=== PATIENT | male | born 1985 | race Two or more races ===

== ENCOUNTER 2021-02-17 17:02 | Emergency (ER) | payer OTHER, SELFPAY ==
[2021-02-17 17:09] VITALS: BP 130/86; PULSE 120; O2SAT 99
[2021-02-17 17:16] VITALS: BP 121/76; PULSE 120; RESP 20; TEMP 36.1; O2SAT 95; BMI 21.6
--- NOTE | 2021-02-17 17:44 | ED_ITS ---
HPI - Overdose General Chief Complaint: Overdose Stated Complaint: HEROIN USE @ [facility],NO NARCAN GIVEN Time Seen by Provider: 02/17/21 17:10 Source: patient and EMS Mode of arrival: EMS Limitations: no limitations History of Present Illness HPI Narrative: Patient comes emergency room by EMS. Patient was found at our local [facility] nodding off. Patient admits to using heroin and cocaine. Patient denies suicidal or homicidal ideation. Patient states he feels fine and would like to be discharged. No Narcan was given by EMS. Patient denies any other symptoms. Related Data Allergies Allergy/AdvReac Type Severity Reaction Status Date / Time No Known Allergies Allergy Verified 02/17/21 17:19 Review of Systems Review of Systems: Constitutional : No Weight loss, No Fever, No Chills, No Night Sweats, No Fatigue, No Malaise ENT/Mouth : No Hearing loss, No Ear Pain, No Nasal Congestion, No Sinus Pain, No Hoarseness, No sore throat, No Rhinorrhea, No Swallowing Difficulty Eyes: No Eye Pain, No Swelling, No Redness, No Foreign Body, No Discharge, No V ision Changes Cardiovascular : No Chest Pain, No SOB, No Dyspnea on Exertion, No Orthopnea, No Edema, No Palpitations Respiratory : No Cough, No Sputum, No Wheezing, No Smoke Exposure, No Dyspnea Gastrointestinal : No Nausea, No Vomiting, No Diarrhea, No Constipation, No abdominal Pain, No Hematochezia, No Melena Genitourinary : no irregular bleeding, No Dysuria, No Urinary Frequency, No Hematuria, No Urinary Incontinence, No Urgency, No Flank Pain, No Urinary Flow Changes, No Hesitancy Musculoskeletal : No joint pain, No Myalgias, No Joint Swelling Skin : No Skin Lesions, No rash Neuro : No Weakness, No Numbness, No Paresthesias, No Loss of Consciousness, No Dizziness, No Headache Psych : No Anxiety/Panic, No Depression, No SI/HI/AH/VH, No Social Issues, Heme/Lymph: No Bruising, No Bleeding,No Lymphadenopathy Endocrine : No Polyuria, No Polydipsia, No Temperature Intolerance PMFSH Past Medical History Medical History Seizures Social History Social History Advance Directives: No Advance Directives Information Provided: No Physical Exam Vital Signs: Vital Signs: Last Vital Signs Temp 97.0 F 02/17/21 17:16 Pulse 92 02/17/21 19:44 Resp 20 02/17/21 17:16 BP 121/76 02/17/21 17:16 Pulse Ox 99 02/17/21 19:44 Body Mass Index 21.6 Const: Other: Appearance: Alert. Oriented X3. No acute distress. Somnolent, easily arousable Eyes: Pupils equal, round and reactive to light. ENT: Pharynx normal. Neck: Normal inspection. Neck supple. No lymph nodes noted. No crepitus CVS: Normal heart rate and rhythm. Pulses normal. Normal S1 and S2 Respiratory: No respiratory distress. Breath sounds normal. No Wheezing. No rales Abdomen: Soft and nontender. No rigidity. No distention. good BS x4 Skin: Skin warm and dry. Normal skin color. Normal skin turgor. Extremities: No lower extremity edema. No Lacerations. No Rash Neuro: Oriented X 3. No motor deficit. No sensory deficit. Moving all extermities. No slurred speech. Course Course Course Narrative: Patient remains awake and alert, ambulatory with normal gait, oxygen saturation 99% on room air. Patient declined help from the other sports coach or instructor to go to detox. Patient accepted a list of phone numbers were he can call to make his own appointments. Discharge Plan Discharge Clinical Impression: Drug overdose Qualifiers: Encounter type: initial encounter Injury intent: accidental or unintentional Qualified Code(s): T50.901A - Poisoning by unspecified drugs, medicaments and biological substances, accidental (unintentional), initial encounter Patient Disposition: Home, Self-Care Instructions: Adult Overdose (ED) Additional Instructions: Please follow-up with your primary care physician tomorrow. If you have any worsening or new symptoms, please return to the emergency room or call 911
--- NOTE | 2021-02-17 18:31 | HO.SUDE ---
CARE Team met with pt to offer him a SUDE evaluation. Pt reports using heroin and cocaine from the age of [age]. He also reports marijuana use. He reports tonight he relapsed. He has access to narcan. He reports his longest period sobriety was three years. CARE Team provided pt with list of local detoxes.
--- NOTE | 2021-02-17 18:55 | MHC.RECOVSUP ---
? Reason for consult:[id number] support o?? Current location ?[facility] o?? Identified substance use concern ?Heroine/Cocaine ?? Overdose ?? Support ? Intervention: o?? Community resources provided o?? Harm reduction discussion ? Plan: o?? Patient awaiting crisis evaluation o?? Patient to follow up with [facility] after discharge ? Additional information: Met with Pt. states that he has been using heroine for a while. Pt. does not want treatment at this time.Gave information about [facility] program.?
[2021-02-17 19:44] VITALS: PULSE 92; O2SAT 99
== END 2021-02-17 20:12 | disposition home or self-care (01) ==
PROVIDERS: Emergency Provider Emergency Medicine
DX: T40.1X1A Poisoning by heroin, accidental (unintentional), initial encounter (principal); Y92.511 Restaurant or cafe as the place of occurrence of the external cause
CPT/HCPCS: 99283

== ENCOUNTER → 2022-05-07 08:52 | Outpatient (BNVA) | payer OTHER, SELFPAY | PROVIDERS: PCP Physician Assistant Medical; Visit Provider Psychiatry & Neurology Neurology | DX: G40.909 Epilepsy, unspecified, not intractable, without status epilepticus (principal) | CPT/HCPCS: 99202 ==

== ENCOUNTER 2022-08-18 11:02 | Emergency (ER) | payer OTHER, SELFPAY ==
--- NOTE | ~2022-08-18 | US_ITS ---
EXAMINATION: US VENOUS ULTRASOUND WITH DOPPLER LOWER EXTREMITY, LEFT CLINICAL INFORMATION: Leg pain and swelling. COMPARISON: None available. TECHNIQUE: Ultrasound of the deep veins is performed from the hip to the calf with compression sonography and color and pulse Doppler assessment. Spectral analysis with color-flow imaging is performed. FINDINGS: There is normal venous compression and respiratory variation and augmented flow. The visualized common femoral vein, superficial femoral vein, profunda femoral vein, popliteal vein, and the trifurcation region shows no evidence of deep venous thrombosis. There is no significant popliteal fossa cyst. If the patient's symptoms persist, followup ultrasound in 5 days 7 days might be of value to exclude proximal propagation from a non-visualized calf vein. US/US venous duplex LE IMPRESSION: No evidence for deep venous thrombosis in the visualized veins of the left lower extremity.
[2022-08-18 11:22] VITALS: BP 130/81; PULSE 64; RESP 18; TEMP 36.2; O2SAT 99; BMI 31.6
--- NOTE | 2022-08-18 11:22 | ED_ITS ---
HPI - Extremity Problem General Chief complaint: Extremity Injury, Lower <MANOLO Maher Last Filed: 08/18/22 11:26> Stated complaint: Cellulitis L leg <MANOLO Maher Last Filed: 08/18/22 11:26> Time Seen by Provider: 08/18/22 12:04 <MANOLO Maher Last Filed: 08/18/22 11:26> Source: patient, RN notes reviewed and old records reviewed <MANOLO Luna Last Filed: 08/18/22 18:21> Mode of arrival: ambulatory <MANOLO Luna Last Filed: 08/18/22 18:21> History of Present Illness HPI Narrative: 36-year-old male with a past medical history of seizures, polysubstance abuse, MRSA, presenting to the ED complaining of LLE swelling x 4 days. Patient admits he was recently ?admitted to [facility] for cellulitis reportedly 3 weeks ago, admits finished course of Doxycycline and Keflex. Denies fever, chills, recent travel, history of cough, SOB/CP, numbness/tingling <MANOLO Luna Last Filed: 08/18/22 18:21> MD Complaint: extremity pain and extremity swelling <MANOLO Luna Last Filed: 08/18/22 18:21> Related Data Home medications: Home Medications Medication Instructions Recorded Confirmed cyclobenzaprine 10 mg tablet 10 mg PO TID 01/22/22 05/07/22 ibuprofen 800 mg tablet 800 mg PO TID 01/22/22 05/07/22 Previous Rx's Medication Instructions Recorded divalproex 250 mg tablet,delayed 750 mg PO TID #1 tab 01/22/22 release gabapentin 300 mg capsule 300 mg PO BID #60 caps 05/07/22 sulfamethoxazole 800 1 tab PO Q12H 5 days #10 tabs 08/18/22 mg-trimethoprim 160 mg tablet (Bactrim DS) <MANOLO Maher Last Filed: 08/18/22 11:26> Allergies/Adverse reactions: Allergies Allergy/AdvReac Type Severity Reaction Status Date / Time No Known Allergies Allergy Verified 08/18/22 11:22 <MANOLO Maher Last Filed: 08/18/22 11:26> Review of Systems Review of Systems: Constitutional: No Fever, No Chills ENT/Mouth: No Ear Pain, No Nasal Congestion, No Sinus Pain, No Hoarseness, No sore throat Cardiovascular: No Chest Pain, No SOB, +edema Respiratory: No Cough, No Sputum, No Wheezing Gastrointestinal: No Nausea, No Vomiting, No Diarrhea, No Constipation, No Abdominal pain Genitourinary: No Dysuria, No Urinary Frequency, No Hematuria Musculoskeletal: No joint pain, No Myalgias, + Joint Swelling Skin: No Skin Lesions, No rash Neuro: No Weakness, No Numbness, No Paresthesias <MANOLO Luna - Last Filed: 08/18/22 18:21> Yes all other systems are reviewed and are negative <MANOLO Luna - Last Filed: 08/18/22 18:21> Constitutional: Constitutional: Reports as per HPI <MANOLO Luna - Last Filed: 08/18/22 18:21> [facility] Past Medical History Attestation statement: The following information was validated with the patient. <MANOLO Luna - Last Filed: 08/18/22 18:21> Medical History: Medical History Encounter for incision and drainage procedure Foreign body of upper arm MRSA (methicillin resistant staph aureus) culture positive Polysubstance use disorder Seizures <MANOLO Maher - Last Filed: 08/18/22 11:26> Surgical History: Surgical History History of surgery on lower extremity <MANOLO Maher - Last Filed: 08/18/22 11:26> Social History Social History: Social History Alcohol intake: never Patient Tobacco Use Status: Current everyday Tobacco user Substance Use Type: Crack/Cocaine, Heroin, IV Drugs, Marijuana and Opiates Advance Directives: No Advance Directives Information Provided: No <MANOLO Maher Last Filed: 08/18/22 11:26> Physical Exam Vital Signs: Vital Signs: Last Vital Signs Temp 97.2 F 08/18/22 11:22 Pulse 64 08/18/22 11:22 Resp 18 08/18/22 11:22 BP 130/81 08/18/22 11:22 Pulse Ox 99 08/18/22 11:22 O2 Del Method Room Air 08/18/22 11:22 BMI result Body Mass Index 31.6 <MANOLO Maher - Last Filed: 08/18/22 11:26> Vital Signs: Last Vital Signs Temp 97.2 F 08/18/22 11:22 Pulse 64 08/18/22 11:22 Resp 18 08/18/22 11:22 BP 130/81 08/18/22 11:22 Pulse Ox 99 08/18/22 11:22 O2 Del Method Room Air 08/18/22 11:22 BMI result Body Mass Index 31.6 <MANOLO Luna - Last Filed: 08/18/22 18:21> Const: General: cooperative, healthy appearing and no acute distress <MANOLO Luna - Last Filed: 08/18/22 18:21> Orientation/consciousness: patient oriented x3 <MANOLO Luna - Last Filed: 08/18/22 18:21> Limitations: no limitations <MANOLO Luna - Last Filed: 08/18/22 18:21> HEENT: Head: Yes normal to inspection and Yes atraumatic <MANOLO Luna - Last Filed: 08/18/22 18:21> Ears: hearing grossly normal bilaterally <MANOLO Luna - Last Filed: 08/18/22 18:21> General nose exam: Normal external nose present <MANOLO Luna - Last Filed: 08/18/22 18:21> Face and sinus: Yes normal facial exam <MANOLO Luna - Last Filed: 08/18/22 18:21> Eyes: General: appearance normal, both eyes and all related structures <MANOLO Luna Last Filed: 08/18/22 18:21> EOM: EOMs intact bilaterally <MANOLO Luna - Last Filed: 08/18/22 18:21> Neck: Neck: Yes normal visual inspection and Yes no meningeal signs <MANOLO Luna - Last Filed: 08/18/22 18:21> Resp: Effort & Inspection: normal respiratory effort and no respiratory distress <MANOLO Luna - Last Filed: 08/18/22 18:21> Auscultation: clear to auscultation bilaterally <MANOLO Luna - Last Filed: 08/18/22 18:21> Cardio: Rate: regular rate <MANOLO Luna - Last Filed: 08/18/22 18:21> Heart sounds: S1 normal heart sound present and S2 normal heart sound present <MANOLO Luna - Last Filed: 08/18/22 18:21> Peripheral pulses: Peripheral pulses 2+ throughout <MANOLO Luna - Last Filed: 08/18/22 18:21> Skin: Rashes: no rashes <MANOLO Luna - Last Filed: 08/18/22 18:21> Wounds: no wounds <MANOLO Luna - Last Filed: 08/18/22 18:21> Neuro: General: patient oriented x3, tone normal and no meningeal signs <MANOLO Luna - Last Filed: 08/18/22 18:21> Gait exam (Neuro): Normal gait present <MANOLO Luna Last Filed: 08/18/22 18:21> Extrem: Other: Mild bilateral LE pitting edema > LLE. Left lower extremity mildly erythematous. No crepitus, no rash <MANOLO Luna Last Filed: 08/18/22 18:21> Course Course Course Narrative: RME - 36 yo male with history of seizure disorder and history of MRSA infection who presents to the ER for evaluation of left lower extremity swelling, redness and pain for the last 4 days. He was recently on kelfex? for cellulitis middle of July. No fevers at home. Visible LLE is swollen, slightly red. Plan: labs and LE doppler <MANOLO Maher - Last Filed: 08/18/22 11:26> RME - 36 yo male with history of seizure disorder and history of MRSA infection who presents to the ER for evaluation of left lower extremity swelling, redness and pain for the last 4 days. He was recently on kelfex? for cellulitis middle of July. No fevers at home. Visible LLE is swollen, slightly red. Plan: labs and LE doppler -[id number]--labs reassuring US venous duplex LE LT IMPRESSION: No evidence for deep venous thrombosis in the visualized veins of the left lower extremity. Results discussed with patient > recommended compression stockings and elevation. Will start patient on Bactrim, recommended close PCP follow-up. Discussed worrisome signs and symptoms and strict return precautions, and when to return to the emergency department. They verbalized understanding and feel safe for discharge at this time. <MANOLO Luna - Last Filed: 08/18/22 18:21> Medical Decision Making Medical Decision Making MDM Narrative: 36-year-old male with a past medical history of seizures, polysubstance abuse, MRSA, presenting to the ED complaining of LLE swelling x 4 days. On exam vital signs stable, NAD, afebrile, nontoxic appearing, mild bilateral pitting edema noted greater in the left lower extremity with slight erythema. No warmth. No crepitus. No calf tenderness. Concern for possible early recurrent cellulitis vs PVD vs DVT. Low suspicion for ACS/PE were compartment syndrome Plan: Labs, venous duplex ultrasound Please refer to course for remaining clinical decision making, interpretation of labs/imaging results, and discussions with consultants and/or family members. <MANOLO Luna - Last Filed: 08/18/22 18:21> Differential Diagnosis Differential Diagnoses: The differential diagnosis associated with the presentation includes <MANOLO Luna Last Filed: 08/18/22 18:21> As above <MANOLO Luna - Last Filed: 08/18/22 18:21> Admission/Observation Consideration of admission/observation: Escalation of care including admission/observation considered <MANOLO Luna Last Filed: 08/18/22 18:21> Lab Data [facility] Lab Attestation statement: I reviewed the patient's lab results. <MANOLO Luna Last Filed: 08/18/22 18:21> Result Diagrams: 08/18/22 12:41 08/18/22 12:41 <MANOLO Maher - Last Filed: 08/18/22 11:26> Labs: Lab Results 08/18/22 08/18/22 Range/Units 12:41 12:41 WBC 4.7 L (4.8-10.8) X10*3/uL RBC 4.63 (4.60-5.80) X10*6/uL Hgb 11.8 L (14.0-18.0) g/dl Hct 37.5 L (42.0-52.0) % MCV 81.0 (80.0-98.0) fL MCH 25.5 L (27.0-33.0) pg MCHC 31.5 (31.0-36.0) g/dl RDW 13.7 (11.0-16.0) % Plt Count 178 (160-400) X10*3/uL MPV 9.8 (9.4-12.4) fL Immature Gran % (Auto) 0.6 H (0.0-0.4) % Neut % (Auto) 44.5 L (45-73) % Lymph % (Auto) 34.4 (20-40) % [place] % (Auto) 17.8 H (2-11) % Eos % (Auto) 2.5 (0-4) % Baso % (Auto) 0.2 (0-2) % Lymph # (Auto) 1.6 (1.2-4.9) X10*3/uL [place] # (Auto) 0.8 (0.1-1.2) X10*3/uL Eos # (Auto) 0.1 (0.0-0.4) X10*3/uL Baso # (Auto) 0.0 (0.0-0.2) X10*3/uL Abs Immat Gran (auto) 0.03 (0.00-0.03) X10*3/uL Absolute Neuts (auto) 2.1 (2.0-8.3) x10*3/uL Absolute Nucleated RBC 0.000 (0.0-0.012) X10*3/uL Nucleated RBC % (auto) 0.0 (0.0-0.2) /100WBC Sodium 143 (135-145) mmol/L Potassium 4.7 (3.3-5.1) mmol/L Chloride 106 (96-108) mmol/L Carbon Dioxide 29 (22-29) mmol/L Anion Gap 13 (12-20) BUN 10 (9-16) mg/dL Creatinine 0.65 (0.5-1.4) mg/dL Estim Creat Clear Calc 157.0 Estimated GFR > 60 Random Glucose 87 (60-115) mg/dL Calcium 9.2 (8.4-10.2) mg/dL Magnesium 2.3 (1.6-2.6) mg/dL Total Bilirubin 0.2 (0.0-1.0) mg/dL Direct Bilirubin < 0.2 (0.0-0.5) mg/dL AST 51 H (5-37) U/L ALT 45 H (0-40) U/L Alkaline Phosphatase 165 H (39-117) U/L Total Protein 7.1 (6.5-8.0) g/dL Albumin 3.7 (3.5-5.0) g/dL <MANOLO Maher - Last Filed: 08/18/22 11:26> Lab Results 08/18/22 08/18/22 Range/Units 12:41 12:41 WBC 4.7 L (4.8-10.8) X10*3/uL RBC 4.63 (4.60-5.80) X10*6/uL Hgb 11.8 L (14.0-18.0) g/dl Hct 37.5 L (42.0-52.0) % MCV 81.0 (80.0-98.0) fL MCH 25.5 L (27.0-33.0) pg MCHC 31.5 (31.0-36.0) g/dl RDW 13.7 (11.0-16.0) % Plt Count 178 (160-400) X10*3/uL MPV 9.8 (9.4-12.4) fL Immature Gran % (Auto) 0.6 H (0.0-0.4) % Neut % (Auto) 44.5 L (45-73) % Lymph % (Auto) 34.4 (20-40) % [place] % (Auto) 17.8 H (2-11) % Eos % (Auto) 2.5 (0-4) % Baso % (Auto) 0.2 (0-2) % Lymph # (Auto) 1.6 (1.2-4.9) X10*3/uL [place] # (Auto) 0.8 (0.1-1.2) X10*3/uL Eos # (Auto) 0.1 (0.0-0.4) X10*3/uL Baso # (Auto) 0.0 (0.0-0.2) X10*3/uL Abs Immat Gran (auto) 0.03 (0.00-0.03) X10*3/uL Absolute Neuts (auto) 2.1 (2.0-8.3) x10*3/uL Absolute Nucleated RBC 0.000 (0.0-0.012) X10*3/uL Nucleated RBC % (auto) 0.0 (0.0-0.2) /100WBC Sodium 143 (135-145) mmol/L Potassium 4.7 (3.3-5.1) mmol/L Chloride 106 (96-108) mmol/L Carbon Dioxide 29 (22-29) mmol/L Anion Gap 13 (12-20) BUN 10 (9-16) mg/dL Creatinine 0.65 (0.5-1.4) mg/dL Estim Creat Clear Calc 157.0 Estimated GFR > 60 Random Glucose 87 (60-115) mg/dL Calcium 9.2 (8.4-10.2) mg/dL Magnesium 2.3 (1.6-2.6) mg/dL Total Bilirubin 0.2 (0.0-1.0) mg/dL Direct Bilirubin < 0.2 (0.0-0.5) mg/dL AST 51 H (5-37) U/L ALT 45 H (0-40) U/L Alkaline Phosphatase 165 H (39-117) U/L Total Protein 7.1 (6.5-8.0) g/dL Albumin 3.7 (3.5-5.0) g/dL <MANOLO Luna - Last Filed: 08/18/22 18:21> Radiology Impression Discussion of test interpretation with radiology: I have reviewed the radiologist's reading. <MANOLO Luna - Last Filed: 08/18/22 18:21> External Record Review External record reviewed: Inpatient record, Office record, Outpatient record, Prior outpatient labs, Prior outpatient radiology, Primary care record and Outside ED record <MANOLO Luna - Last Filed: 08/18/22 18:21> Discharge Plan Discharge Clinical Impression: Leg edema, Cellulitis <MANOLO Maher - Last Filed: 08/18/22 11:26> Patient Disposition: Home, Self-Care <MANOLO Maher - Last Filed: 08/18/22 11:26> Instructions: Cellulitis (DC), Leg Edema (ED) <MANOLO Maher - Last Filed: 08/18/22 11:26> Additional Instructions: Your blood work is reassuring. your ultrasound is negative for blood clot. You may have early cellulitis. Bactrim as an antibiotic please take as prescribed. Please were compression stockings. Elevate her feet. If you develop worsening redness, persistent worsening swelling, shortness of breath or chest pain return to the ED <MANOLO Maher - Last Filed: 08/18/22 11:26> Prescriptions: New sulfamethoxazole-trimethoprim [Bactrim DS] 800-160 mg tablet 1 tab PO Q12H 5 Days Qty: 10 0RF No Action cyclobenzaprine 10 mg tablet 10 mg PO TID divalproex 250 mg tablet,delayed release (DR/EC) 750 mg PO TID Qty: 1 0RF ibuprofen 800 mg tablet 800 mg PO TID gabapentin 300 mg capsule 300 mg PO BID Qty: 60 6RF <MANOLO Maher - Last Filed: 08/18/22 11:26> Referrals: Ning Villeda PA [Primary Care Provider] - 3 days <MANOLO Maher - Last Filed: 08/18/22 11:26> Interventions: ED Discharge Assessment Last Done: 08/18/22 14:51 <MANOLO Maher - Last Filed: 08/18/22 11:26> Discharge Date/Time: 08/18/22 14:52 <MANOLO Maher - Last Filed: 08/18/22 11:26>
[2022-08-18 12:45] LABS: MANUAL DIFF FLAG NO
--- OUTSIDE RECORDS SUMMARY | 2022-08-18 12:46 | XMS_ITS | Continuity of Care Document ---
Author Name Unknown Organization [facility] Address [address] [place] [address]- Care Team Providers Care Manager Filter Name Role Phone Passer Ning FRENCH Primary Care Physician Encounter [facility] [place] Date(s): 07/06/22 - 07/13/[address] [address]- Discharge Disposition: A-D/C Home Attending Physician: Ray Dang MD Admitting Physician: Michelle Rudd MD Referring Physician: Not on Staff, Referring MD Allergies, Adverse Reactions, Alerts No Known Allergies Immunizations Given and Recorded Vaccine Date Status Refusal Reason SARS-CoV-2 (COVID-19) Ad26 vaccine 09/09/20 Record ed tetanus/diphtheria/pertussis, acel(Tdap) 02/10/20 Given tetanus/diphtheria/pertussis, acel(Tdap) 06/07/17 Given tetanus/diphtheria/pertussis, acel(Tdap) 09/08/12 Recorded tetanus/diphtheria/pertussis, acel(Tdap) 08/30/11 Given influenza virus vaccine, inactivated 01/25/18 Give n influenza virus vaccine, inactivated 02/18/17 Give n Medications Augmentin 500 mg-125 mg oral tablet 1 tablet, By Mouth, Every 24 hours, for 5 days, # 5 tablet, 0 Refills, Acute 07/18/22 11:19:00 EDT,07/13/22 11:19:00 EDT, Tablet, Partial fill upon patient request if the prescription is for a schedule II opioid drug. Start Date: 07/13/22 Stop Date: 07/18/22 Status: Ordered divalproex sodium 250 mg oral enteric coated tablet 3 tablet = 750 mg, By Mouth, 2 times a day, PLEASE DISPENSE TONIGHT, PATIENT HAS RAN OUT OF MEDS. for seizures label in somali, # 180 tablet, 6 Refills, Maintenance, 03/27/22 12:05:00 EST, Tablet, [facility]/pharmacy #[id number], Partial fill upon patient reques... Start Date: 03/27/22 Status: Ordered divalproex sodium 250 mg oral enteric coated tablet = 750 mg, By Mouth, 2 times a day, # 60 tablet, 0 Refills, Maintenance, 07/13/22 15:39:00 EDT, Tablet, [facility]/pharmacy #[id number], Partial fill upon patient request if the prescription is for a schedule II opioid drug., 165, cm, 07/13/22 12:32:00 EDT, Height,... Start Date: 07/13/22 Stop Date: 08/12/22 Status: Ordered gabapentin 300 mg oral capsule 600 mg, 2, capsule, By Mouth, Daily at bedtime, # 60 capsule, Refills 0, Tot. Refills 0, Maintenance, 07/13/22 15:39:00 EDT, Route to Pharmacy Electronically, [facility]/pharmacy #[id number], Partial fill upon patient request if the prescription is for a schedule... Start Date: 07/13/22 Stop Date: 08/12/22 Status: Ordered gabapentin 600 mg oral tablet 1 tablet = 600 mg, By Mouth, Daily at bedtime, for chronic leg pain, # 30 tablet, 2 Refills, Maintenance, 05/14/22 8:55:00 EST, Tablet, [facility]/pharmacy #[id number], Partial fill upon patient request if the prescription is for a schedule II opioid drug., 165, c... Start Date: 05/14/22 Status: Ordered methadone 10 mg oral tablet 2 tablet = 20 mg, By Mouth, Daily, 0 Refills, Maintenance, 07/13/22 11:18:00 EDT, Tablet, Partial fill upon patient request if the prescription is for a schedule II opioid drug. Start Date: 07/13/22 Status: Ordered Methadone Tablet 20 mg, Tablet, By Mouth, 07/13/22 9:00:00 EDT Start Date: 07/13/22 Stop Date: 07/13/22 Status: Completed Problem List Condition Confirmation Course Effective Dates Status H ealth Status Informant Cigarette smoker Confirmed Active History of hepatitis C Confirmed Active History of substance abuse Confirmed Active Hyperlipidemia Confirmed Active *[id number]-Gin sylvia Senior Confirmed Active Seizure Confirmed Active Vital Signs Most recent to oldest [Reference Range]: 1 2 3 Height 165 cm (07/13/22 11:28 AM) 165 cm (07/13/22 6:59 AM) 165 cm (07/13/22 5:30 AM) Weight 86.3 kg (07/06/22 7:25 PM) Oxygen Saturation [94-100 %] 99 % (07/13/22 11:28 AM) 99 % (07/13/22 6:59 AM) 99 % (07/13/22 5:30 AM) Pulse Rate [55-90 bpm] 69 bpm (07/13/22 11:28 AM) 52 bpm *L* (07/13/22 6:59 AM) 67 bpm (07/13/22 5:30 AM) Body Mass Index [18.5-24.99 kg/m2] 31.7 kg/m2 *>HHI* (07/06/22 7:25 PM) Blood Pressure [90-138/55-84 mm Hg] 121/83mm Hg (07/13/22 11:28 AM) 119/74mm Hg (07/13/22 6:59 AM) 124/76mm Hg (07/13/22 5:30 AM) Respiratory Rate [16-30 br/min] 20 br/min (07/13/22 11:28 AM) 18 br/min (07/13/22 8:30 AM) 20 br/min (07/13/22 6:59 AM) Temperature [96.8-100.4 DegF] 97.9 DegF (07/13/22 11:28 AM) 97.4 DegF (07/13/22 6:59 AM) 98.5 DegF (07/13/22 5:30 AM) Liters per Minute 0 L/min (07/08/22 10:54 AM) 0 L/min (07/08/22 7:08 AM) Mode of Delivery (Oxygen) Room air (07/13/22 11:28 AM) Room air (07/13/22 6:59 AM) Room air (07/13/22 5:30 AM) Blood pressure sites Arm, left (07/13/22 11:28 AM) Arm, left (07/13/22 6:59 AM) Arm, left (07/13/22 5:30 AM) Temperature Route Oral (07/13/22 11:28 AM) Oral (07/13/22 6:59 AM) Oral (07/13/22 5:30 AM) Dry Weight 86.3 kg (07/06/22 7:25 PM) Weight Obtained Via Bed scale (07/06/22 7:25 PM) Dry Weight Obtained Via Bed scale (07/06/22 7:25 PM) Social History Social History Type Response Smoking Status 10 or more cigarette s (1/2 pack or more)/day in last 30 days entered on: 07/30/21 Sex Consult note * Barbie (Surgery) Irene LINCOLN: MODIFY, SIGN, VERIFY, PERFORM Event Display: Consult Authored Date: [id number] Patient: BROWN NIXON Age: 36 years Sex: Male : 1985 Associated Diagnoses: None Author: Barbie (Surgery) Irene LINCOLN History of Present Illness Brown Nixon is a 36 year old male with history of active IVDA, who presented with left arm pain and swelling. Patient is poor historian, but states he first noticed the discomfort a few days ago. He reports associated subjective fevers and chills, but no nausea/vomiting. His symptoms are occurring at the antecubital fossa, where he actively injects, but is also the site of a prior surgery.He presented to the ED where he was found to be afebrile and without leukocytosis, but noted to have an elevated CRP/ESR. X-rays of the upper extremity were obtained, noting needle fragments in the soft tissue of the elbow, but no evidence of osteomyelitis. He was started on IV vancomycin and admitted for management of cellulitis. Surgical consult requested due to presence of foreign bodies. At this time, patient not expressing significant complaint regarding the elbow. He reports more pain in his left thigh, which is the site of a previous orthopedic surgery. Past Medical History Problem list All Problems Seizure disorder / Confirmed Cigarette smoker / SNOMED CT 830385621 / Confirmed *[id number] Senior / SNOMED CT 681539493 / Confirmed History of hepatitis C / SNOMED CT 4897104630 / Confirmed History of substance abuse / SNOMED CT 4739458189 / Confirmed Hyperlipidemia / SNOMED CT 54376831 / Confirmed Obese class I / SNOMED CT 508211790393578 / [place] II diagnosis Seizure / SNOMED CT 832756500 / Confirmed Allergies Allergic Reactions (Selected) NKA Current medications (Selected) Inpatient Medications Ordered Acetaminophen Tablet: 650 mg, Tablet, By Mouth, Every 4 hours, PRN for Pain , Mild, Temperature Greater than 100.5, Routine, 07/06/22 20:31:00 EDT ClonIDINE Tablet: 0.05 mg, Tablet, By Mouth, Every 12 hours for 3 doses/times, Hold for: HR less than 60 or SYSTOLIC BP less than 100, Routine, 07/11/22 7:00:00 EDT, Stop date 07/12/22 18:59:00 EDT ClonIDINE Tablet: 0.1 mg, Tablet, By Mouth, Every 12 hours for 2 doses/times, Hold for: HR less than 60 or SYSTOLIC BP less than 100, Routine, 07/10/22 7:00:00 EDT, Stop date 07/11/22 6:59:00 EDT ClonIDINE Tablet: 0.1 mg, Tablet, By Mouth, Every 6 hours, Hold for: HR less than 60 or SYSTOLIC BPless than 100, Routine, 07/07/22 2:00:00 EDT, Stop date 07/09/22 3:59:00 EDT ClonIDINE Tablet: 0.1 mg, Tablet, By Mouth, Every 8 hours for 3 doses/times, Hold for: HR less than60 or SYSTOLIC BP less than 100, Routine, 07/09/22 3:00:00 EDT, Stop date 07/10/22 2:59:00 EDT Depakote Tablet: 750 mg, Tablet, By Mouth, 2 times a day, Routine, 07/06/22 22:23:00 EDT Dicyclomine Capsule: 20 mg, Capsule, By Mouth, Every 4 hours, PRN for Other, Gastrointestinal Cramping, Routine, 07/07/22 1:07:00 EDT Docusate/Senna Tablet: 1 tablet, Tablet, By Mouth, 2 times a day, PRN for Constipation, Routine, 07/06/22 20:31:00 EDT Heparin Inj: 5,000 units, Injection, Subcutaneous Injection, 3 times a day for 30 days, (DVT Prophylaxis), Routine, 07/07/22 6:00:00 EDT, Stop date 08/06/22 5:59:00 EDT HydrOXYzine Pamoate Capsule: 50 mg, Capsule, By Mouth, Every 4 hours, PRN for Other, Any positive score for Anxiety or Restlessness on COWS Score, Routine, 07/07/22 1:07:00 EDT Lactated Ringers 1,000 mL: 1,000 mL, Infusion, IV Infusion, 1,000 mL, 100 mL/hr, Infuse over 10 hr,Continue until D/C'd Unless duration specified, Routine, 07/06/22 22:29:00 EDT, 1.94, m2 Loperamide Capsule: 2 mg, Capsule, By Mouth, Every hour, PRN for Diarrhea, Subsequent Episodes (NOTTO EXCEED 16mg/24 hours), Routine, 07/07/22 1:07:00 EDT Loperamide Capsule: 4 mg, Capsule, By Mouth, Once, PRN for Diarrhea, FIRST Episode, Routine, 07/07/22 1:07:00 EDT Melatonin Tablet: 3 mg, Tablet, By Mouth, Daily at bedtime, PRN for Insomnia, Routine, 07/06/22 20:31:00 EDT Methadone Tablet: 20 mg, Tablet, By Mouth, Once, PRN for Other, opioid withdrawal, Routine, 07/07/22 1:08:00 EDT MiraLax Powder: 17 Gm, Powder, By Mouth, Daily for 14 days, Dissolve in 8 ounces of water., PRN forConstipation, Routine, 07/06/22 20:31:00 EDT, Stop date 07/20/22 20:30:00 EDT NaCL 0.9% Flush: 3 mL, Injection, IV Push, Every 8 hours, PRN for Line/Tube Patency, Routine, 07/06/22 20:31:00 EDT NaCL 0.9% Flush: 3 mL, Injection, IV Push, Every 8 hours, Routine, 07/06/22 21:00:00 EDT Nicotine Gum: 4 mg, Gum, Chew, Every hour, PRN for Other, Nicotine Withdrawal Symptoms (NOT to exceed 24 pieces per day), Routine, 07/06/22 22:25:00 EDT Ondansetron ODTablet: 8 mg, Tablet, By Mouth, Every 8 hours, PRN for Nausea & Vomiting, Routine, 07/07/22 1:07:00 EDT Phos-NaK Oral Powder: 2 pack/packet, Oral Powder, By Mouth, 4 times a day for 4 doses/times, Routine, 07/07/22 17:00:00 EDT, Stop date 07/08/22 16:59:00 EDT Robitussin DM Liquid: 10 mL, Syrup, By Mouth, Every 4 hours, PRN for Cough, Routine, 07/06/22 20:31:00 EDT Simethicone Tablet: 80 mg, Chew Tablet, Chew, 3 times a day, PRN for Gas, Routine, 07/06/22 20:31:00 EDT Vancomycin IVPB: 1,250 mg, IVPB, Injection, Every 12 hours for 5 days, Infuse over 60 to 90 minutes, Indicated for: Cellulitis Purulent, Routine, 07/08/22 12:00:00 EDT, Stop date 07/13/22 11:59:00 EDT gabapentin 300 mg oral capsule: 600 mg, Capsule, By Mouth, Daily at bedtime, Routine, 07/06/22 22:22:00 EDT nalOXONE Inj: 0.2 mg, Injection, IV Push, Every 5 minutes, PRN for Other, Respiratory Rate less than 8 or for somnolence/excessive sedation. Repeat until Respiratory Rate is greater than 15 and patient is more alert., Routine, 07/07/22 1:08:00 EDT Prescriptions Prescribed divalproex sodium 250 mg oral enteric coated tablet: 3 tablet = 750 mg, By Mouth, 2 times a day, PLEASE DISPENSE TONIGHT, PATIENT HAS RAN OUT OF MEDS. for seizures label in somali, # 180 tablet, 6 Refills, Maintenance, 03/27/22 12:05:00 EST, Tablet, [facility]/pharmacy#[id number], Partial fill upon patient reques... gabapentin 600 mg oral tablet: 1 tablet = 600 mg, By Mouth, Daily at bedtime, for chronic leg pain,# 30 tablet, 2 Refills, Maintenance, 05/14/22 8:55:00 EST, Tablet, [facility]/pharmacy #[id number], Partial fillupon patient request if the prescription is for a schedule II opioid drug., 165, c... Surgical History Left elbow I&D L femoral intramedullary romelia Social History Social History Alcohol Details: Use: Past. Frequency: 1-2 times per week. Type: Beer, Liquor. Employment/School Details: Status: Disabled. Home/Environment Details: Living situation: Home/Independent. Other: floating between family member's houses. Feels unsafe at home: No. Safe place to go: Yes. Injuries/Abuse/Neglect in household: No. Domestic violence in household: No. Alcohol in household: No. Firearms in household: No. Substance abuse in household: No. Smoker in household: No. Major illness in household: No. Financial concerns: No. Sexual Details: Sexually involved in last 6 months: Yes. Substance Abuse Details: Use: Current. Type: Cocaine, Heroin, Marijuana. Frequency: Daily. IV drug use: Yes. Previous treatment: Treatment center, Inpatient. Tobacco Details: Use: 10 or more cigarettes (1/2 pack or more)/day in last 30 days. Details: Current every day smoker, Type: Cigarettes. . Family History Noncontributory Review of Systems Complete ROS limited by patient cooperation. Physical Examination Temperature 98.6 (20:40) Systolic Blood Pressure 116 (20:40) Diastolic Blood Pressure 73 (20:40) Pulse 71 (20:40) SpO2 100 (20:40) Respiratory Rate 18 (20:40) Constitutional: well appearing, no acute distress HEENT: normocephalic, atraumatic. no scleral icterus. moist mucous membranes. Cardiovascular: RRR, no murmurs/rubs/gallops Pulmonary: breathing comfortably on room air, clear to auscultation bilaterally Abdomen: soft, nontender, nondistended Skin: well healed surgical incision distal to left antecubital fossa. Scattered track daly MSK: large area of swelling on medial aspect of left upper arm, just proximal to AC, at edge of a prior surgical incision. minimally tender to palpation. minimal erythema without lymphangitic streaking. no palpable fluctuance. no active drainage or open punctum. Neuro: alert and oriented. no focal deficits Psych: appropriate mood and affect Results Review 7 day results Labs & Documents Laboratory : LABORATORY 07/07/2022 6:00 EDT WBC 9.2 k/mm3 RBC 4.35 m/mm3 L Hgb 11.8 Gm/dL L Hct 35.1 % L MCV 80.7 femtoliters MCH 27.1 pg MCHC 33.6 g/dL Platelet Count 150 k/mm3 RDW-SD 39.6 femtoliters MPV 10.2 femtoliters Nucleated RBC (Automated) 0.0 #/100 WBC'S Abs. NRBC 0.0 k/mm3 Abs. Neut 6.7 k/mm3 Abs. Lymph 0.9 k/mm3 Abs. Cotton 1.6 k/mm3 H Abs. Eo 0.0 k/mm3 Abs. Baso 0.0 k/mm3 Neut % 72.7 % Lymph % 9.4 % L Cotton % 16.9 % H Eos % 0.4 % Baso % 0.3 % Imm Gran 0.3 % Abs. Imm Gran 0.0 k/mm3 Sodium 133 mmol/L Potassium 4.2 mmol/L Chloride 100 mmol/L Bicarbonate Level 27 mmol/L Anion Gap 6 Glucose Level 124 mg/dL H BUN 20 mg/dL Creatinine-Blood 0.8 mg/dL Estimated GFR Creatinine 114 ML/MIN/1.73 M2 Calcium 8.5 mg/dL L Phosphorus 1.4 mg/dL L Magnesium 1.9 mg/dL Protein, Total 6.4 Gm/dL Albumin 3.3 Gm/dL L Alkaline Phosphatase 108 units/L AST (SGOT) 43 units/L H ALT (SGPT) 34 units/L Bilirubin, Total 0.4 mg/dL Bilirubin, Direct 0.1 mg/dL Bilirubin, Indirect 0.3 mg/dL Valproic Level 45.1 mg/L L Humerus Min 2 Views Left Event Date: 07/06/2022 11:39:26 EDT Updated: 07/06/2022 11:49 EDT XR Humerus Min 2 Views Left This document has an image Reason For Exam Infection RESULT: Humerus Min 2 Views Left Humerus Min 2 Views Left, 2 views Hx of Present Illness: pt states he relapsed on drugs, admits to shooting up cocaine and heroin around 12:30pm tonight, states he left his seizure meds @ a friends house on Wednesday and can't get them back, states he had a seizure on , also wants injection sites on L..; Reason: Infection; Clinical Question(s): Foreign Body COMPARISON: None. FINDINGS: No fractures or bone lesions. The visualized portions of the joints are normal. Again seen are 2 retained needle fragments in the soft tissues of the antecubital fossa and measuring 12 mm and the other one measuring 7 mm in length and these appear to be an anterior lateral aspect of the antecubital fossa unchanged. IMPRESSION: Needle fragments in the soft tissues of the left elbow. No acute osseous abnormality is seen. WSN: [id number] Impression and Plan Brown Nixon is a 36 year old male with history of active IVDA, who presented with left arm pain and swelling, primarily at the antecubital fossa. On initial ED evaluation, patient was found kayli afebrile without leukocytosis, with an elevated CRP/ESR. X-rays of the upper extremity demonstrated needle fragments in the soft tissue of the elbow without osteomyelitis. On exam, patient has a swelling/prominence over the medial aspect of the antecubital fossa, without significant tenderness or erythema, and he has no underlying fluctuance or draining wounds. On review of imaging, the retained needles actually appear to be on the lateral aspect of the left arm. Regardless, in this patient with no clinical evidence of abscess and that is otherwise nontoxic, would not surgically intervene by attempting to extract foreign bodies, as the risk to damaging surrounding structures outweigh benefits. Would continue management of the associated cellulitis and closely monitor arm for improvement. Recommendations: - No acute surgical interventions - Monitor arm exam - Continue antibiotic therapy - Remaining care per primary team Discussed with Dr. Arroyo Admission evaluation note * William Rajput: PERFORM Event Display: Admission Note Authored Date: Patient: ??BROWN NIXON ? Age:??36 Years?Sex:??Male?:??1985?? 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 Patient is currently a poor historian due to medications for management of opiate withdrawal, history was obtained through patient and EMR. Patient states that he has felt relapse of IVUs in early June.?? He was prior admitted for overdose and discharged to rehab.?? He has been using heroin and cocaine, last use was yesterday morning.??He reports having fever.?? He also reports that he has not been taking his seizure medications and he had a seizure witnessed 4 days ago.?? At this moment patient is somnolent due to medications however he denies pain and body aches possibly due to withdrawal.?? He has not had any nausea or vomiting, diarrhea, dysuria.?? In the emergency department patient vital signs were within normal limits.??Blood work without leukocytosis, hemoglobin of 13.0.?? Sodium of 131.?? Inflammatory markers C-reactive protein and sedimentation rates are elevated..?? X-ray showed Needle fragments in the soft tissues of the left elbow. No acute osseous abnormality is seen. There is no radiographic evidence of osteomyelitis.?? Patient was started on vancomycin and admission was requested for further management of cellulitis. Review of Systems ?? All other systems were reviewed and are negative. Objective Measurements?? Height: 165 cm (07/07/22) Weight: 86.3 kg (07/06/22) Dry Weight: 86.3 kg (07/06/22) Body Mass Index:??31.7 kg/m2??Critical (07/06/22) ? Vital Signs?? Temperature:??100.5 DegF??High (07/07/22 05:26:00) Temperature Route: Oral (07/07/22 05:26:00) Pulse Rate:??99 bpm??High (07/07/22 03:50:00) Respiratory Rate: 18 br/min (07/07/22 05:29:00) Systolic Blood Pressure: 126 mm Hg (07/07/22 03:50:00) Diastolic Blood Pressure: 62 mm Hg (07/07/22 03:50:00) Blood pressure sites: Arm, left (07/07/22 03:50:00) Mean Arterial Pressure: 83 mm Hg (07/07/22 03:50:00) Pulse Pressure: 64 mm Hg (07/07/22 03:50:00) Oxygen Saturation:??92 %??Low (07/07/22 03:50:00) Mode of Delivery (Oxygen): Room air (07/07/22 03:50:00) Early Warning Score: 3 (07/07/22 06:48:30) Temperature, Opiate Withdrawal:??102.9 DegF??High (07/07/22 05:16:00) Temperature Route, Opiate Withdrawal: Oral (07/07/22 05:16:00) Pulse Rate, Opiate Withdrawal: 82 bpm (07/07/22 00:08:00) ? Perfusion Assessment Cardiovascular: WNL (07/06/22 19:49:00) ? Pain Scores?? No qualifying data available. ? Ventilator Settings?? No qualifying data available. ? Intake/Output? 07/06 19:19 07/07 07:00 07/06 07:00 07/05 07:00 07/04 07:00 ?? 07/07 07:42 07/07 07:42 07/07 06:59 07/06 06:59 07/05 06:59 Intake ? 1793.3 ?0 ? 1793.3 ?0 ?0 Output ?550 ?0 ?550 ?0 ?0 Net Total ? 1243.3 ?0 ? 1243.3 ?0 ?0 ? Urine Count ?1 ?0 ?1 ?0 ?0 ? Precautions No Precautions documented.? Mobility & Ambulation Level Mobility & Ambulation Level?? No qualifying data available. ?? Therapeutic Activity Therapeutic Activities/Mobility/Balance?? No qualifying data available. ? Physical Exam Constitutional: Alert, in no acute distress. Head: Normocephalic. Eyes: Pupils are equal, round and reactive to light. Extraocular muscles intact. No pallor or scleral icterus Ear, Nose and Throat: mucous membranes moist. Ears and nose - no obvious deformities Trachea midline. Neck: Supple, Full range of motion.No JVD or bruits. Respiratory:??Clear to auscultation. No wheezing or rhonchi.??No use of accessory muscles. No tactile fremitus.?? Cardiovascular:??PMI not visible. S1 S2 regular. No murmurs, rubs or gallops. Gastrointestinal:??Abdomen soft, non-tender, non-distended. Normal bowel sounds. No pulsatile mass.No hepatosplenomegaly. Genitourinary:??No costovertebral angle tenderness. Extremities: No lower extremity pitting edema. No cyanosis or clubbing. Swelling and erythema of the left wrist an left antecubital fossa, warm to touch. Neurologic:??AAOx3, Cranial nerves II-XII grossly intact. Speech normal, no facial droop. No focal neurological deficits. Moves all extremities spontaneously. Psychiatric: Normal mood and affect. Assessment/Plan Diagnoses Cellulitis ??(L03.90) Opiate withdrawal ??(F11.93) Polysubstance abuse ??(F19.10) Seizure disorder ??(G40.909) ?? Cellulitis (L03.90):?? Patient comes to the emergency department for evaluation of cellulitis of the left arm. There was swelling and erythema in the left wrist and??left antecubital fossa. We will??admit as inpatient. Continue with vancomycin. Follow-up with blood cultures. Tylenol as needed. IV fluids. Consider surgical consult.? Polysubstance abuse (F19.10): Opiate withdrawal (F11.93):?? Continue with COW??protocol. Methadone 20 mg??was given??for acute withdrawal. 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 Case management consult. ?? Seizure disorder (G40.909):?? Neurochecks. Seizure precautions. Continue with Depakote. ?? VTE Prophylaxis:??Heparin??subcutaneous. ?VTE Prophylaxis Assessment:??VTE Prophylaxis Ordered ?? Code Status:??Full code. ?Order Code Status:??Code Status Ordered ?? Discharge Planning:? Histories Allergies Allergies ?(Active and Proposed Allergies Only) NKA? (Severity: Unknown severity, Onset: Unknown) ? Past Medical History/Problem List Active Problems??(7) *[id number]-Sita Senior Cigarette smoker History of hepatitis C History of substance abuse Hyperlipidemia Obese class I Seizure ? Past Surgical History Incision and drainage, upper arm or elbow area; deep abscess or hematoma: 07/25/19 Removal of foreign body, upper arm or elbow area; subcutaneous: 07/25/19 ? Social History Alcohol Details:??Use: Past. ??Frequency: 1-2 times per week. ??Type: Beer, Liquor. Employment/School Details:??Status: Disabled. Home/Environment Details:??Living situation: Home/Independent. ??Other: floating between family member's houses. ??Feels unsafe at home: No. ??Safe place to go: Yes. ??Injuries/Abuse/Neglect in household: No. ??Domestic violence in household: No. ??Alcohol in household: No. ??Firearms in household: No. ??Substance abuse in household: No. ??Smoker in household: No. ??Major illness in household: No. ??Financial concerns: No. Sexual Details:??Sexually involved in last 6 months: Yes. Substance Abuse Details:??Use: Current. ??Type: Cocaine, Heroin, Marijuana. ??Frequency: Daily. ??IV drug use: Yes.??Previous treatment: Treatment center, Inpatient. Tobacco Details:??Use: 10 or more cigarettes (1/2 pack or more)/day in last 30 days. Details:??Current every day smoker, Type: Cigarettes. ? Psychosocial History ? Family History No family history recorded. ? Travel History Travel Outside [facility]: No ? Medications Home Medications Divalproex Sodium (divalproex sodium 250 mg oral enteric coated tablet)?3?tab(s)?750?Milligram?By Mouth?2 times a day?PLEASE DISPENSE TONIGHT, PATIENT HAS RAN OUT OF MEDS. for seizureslabel in somali Gabapentin (gabapentin 600 mg oral tablet)?1?tab(s)?600?Milligram?By Mouth?Daily at bedtime?for chronic leg pain ? Inpatient Medications Medications (26) Active SCHEDULED: (10) Clonidine 0.1 mg Tablet (ClonIDINE Tablet) ??0.1 mg, By Mouth, Every 6 hours Clonidine 0.1 mg Tablet (ClonIDINE Tablet) ??0.1 mg, By Mouth, Every 8 hours Clonidine 0.1 mg Tablet (ClonIDINE Tablet) ??0.1 mg, By Mouth, Every 12 hours Clonidine 0.1 mg Tablet (ClonIDINE Tablet) ??0.05 mg, By Mouth, Every 12 hours Divalproex 250 mg Tablet (Depakote Tablet) ??750 mg, By Mouth, 2 times a day Gabapentin 300 mg Capsule (gabapentin 300 mg oral capsule) ??600 mg, By Mouth, Daily at bedtime Heparin 5000 units/mL Inj (1 mL) (Heparin Inj) ??5,000 units 1 mL, Subcutaneous Injection, 3 times a day NaCl 0.9% Flush 3ml (NaCL 0.9% Flush) ??3 mL, IV Push, Every 8 hours Phos-NaK Oral Powder ??2 pack/packet, By Mouth, 4 times a day Vancomycin 1250 mg Inj (Vancomycin IVPB) ??1,250 mg, IVPB, Every 12 hours CONTINUOUS: (1) Lactated Ringers (1000 mL) Cont IV 1,000 mL (Lactated Ringers 1,000 mL) ??1,000 mL, IV Infusion, 100 mL/hr PRN: (15) Acetaminophen 325 mg Tablet (Acetaminophen Tablet) ??650 mg, By Mouth, Every 4 hours Dextromethorphan-Guaifenesin 20 mg-200 mg/10 mL Liqu UD (Robitussin DM Liquid) ??10 mL, By Mouth, Every 4 hours Dicyclomine 10 mg Capsule (Dicyclomine Capsule) ??20 mg 2 capsule, By Mouth, Every 4 hours HydrOXYzine Pamoate 25mg Capsule (HydrOXYzine Pamoate Capsule) ??50 mg, By Mouth, Every 4 hours Loperamide 2 mg Capsule (Loperamide Capsule) ??4 mg, By Mouth, Once Loperamide 2 mg Capsule (Loperamide Capsule) ??2 mg, By Mouth, Every hour Melatonin 3 mg Tablet (Melatonin Tablet) ??3 mg, By Mouth, Daily at bedtime Methadone 10 mg Tablet (Methadone Tablet) ??20 mg, By Mouth, Once NaCl 0.9% Flush 3ml (NaCL 0.9% Flush) ??3 mL, IV Push, Every 8 hours nalOXONE ??400mcg/mL Inj (nalOXONE Inj) ??0.2 mg 0.5 mL, IV Push, Every 5 minutes Nicotine Gum 4mg (Nicotine Gum) ??4 mg, Chew, Every hour Ondansetron 8 mg ODT (Ondansetron ODTablet) ??8 mg, By Mouth, Every 8 hours Polyethylene Glycol 17 Gm Powder (MiraLax Powder) ??17 Gm 1 pack/packet, By Mouth, Daily Senna 8.6 mg / Docusate 50 mg tablet (Docusate/Senna Tablet) ??1 tablet, By Mouth, 2 times a day Simethicone 80 mg Chewable Tablet (Simethicone Tablet) ??80 mg, Chew, 3 times a day ? 72 Hour Antibiotic History Active Antibiotics Calendar Day Last Administered First Administered Vancomycin??1,250 mg, 250 mL/hr, IVPB, Every 12 hours ?1 07/07/2022 00:04 07/07/2022 00:04 ? Vaccinations and Immunoprophylaxis influenza virus vaccine, inactivated: 0.5 mL (01/25/18 21:04:00) influenza virus vaccine, inactivated: 0.5 mL (02/18/17 11:28:00) SARS-CoV-2 (COVID-19) Ad26 vaccine: 0.5 Unknown (09/09/20 08:00:00) tetanus/diphtheria/pertussis, acel(Tdap): 0.5 mL (02/10/20 01:27:00) tetanus/diphtheria/pertussis, acel(Tdap): 0.5 mL (06/07/17 09:20:00) tetanus/diphtheria/pertussis, acel(Tdap): 0.5 Unknown (09/08/12 08:00:00) tetanus/diphtheria/pertussis, acel(Tdap): 0.5 mL (08/30/11 18:51:00) ? Results Recent Labs BLOOD COUNT & DIFF WBC 9.2 k/mm3 ()?? 07/07/2022 06:00 RBC 4.35 m/mm3 (Low)?? 07/07/2022 06:00 Hgb 11.8 Gm/dL (Low)?? 07/07/2022 06:00 Hct 35.1 % (Low)?? 07/07/2022 06:00 MCV 80.7 femtoliters ()?? 07/07/2022 06:00 MCH 27.1 pg ()?? 07/07/2022 06:00 MCHC 33.6 g/dL ()?? 07/07/2022 06:00 Platelet Count 150 k/mm3 ()?? 07/07/2022 06:00 RDW-SD 39.6 femtoliters ()?? 07/07/2022 06:00 MPV 10.2 femtoliters ()?? 07/07/2022 06:00 Nucleated RBC (Automated) 0.0 #/100 WBC'S ()?? 07/07/2022 06:00 Abs. NRBC 0.0 k/mm3 ()?? 07/07/2022 06:00 Abs. Neut 6.7 k/mm3 ()?? 07/07/2022 06:00 Abs. Lymph 0.9 k/mm3 ()?? 07/07/2022 06:00 Abs. Cotton 1.6 k/mm3 (High)?? 07/07/2022 06:00 Abs. Eo 0.0 k/mm3 ()?? 07/07/2022 06:00 Abs. Baso 0.0 k/mm3 ()?? 07/07/2022 06:00 Neut % 72.7 % ()?? 07/07/2022 06:00 Lymph % 9.4 % (Low)?? 07/07/2022 06:00 Cotton % 16.9 % (High)?? 07/07/2022 06:00 Eos % 0.4 % ()?? 07/07/2022 06:00 Baso % 0.3 % ()?? 07/07/2022 06:00 Imm Gran 0.3 % ()?? 07/07/2022 06:00 Abs. Imm Gran 0.0 k/mm3 ()?? 07/07/2022 06:00 ?? CHEM GENERAL Sodium 133 mmol/L ()?? 07/07/2022 06:00 Potassium 4.2 mmol/L ()?? 07/07/2022 06:00 Chloride 100 mmol/L ()?? 07/07/2022 06:00 Bicarbonate Level 27 mmol/L ()?? 07/07/2022 06:00 Anion Gap 6 ()?? 07/07/2022 06:00 Glucose Level 124 mg/dL (High)?? 07/07/2022 06:00 BUN 20 mg/dL ()?? 07/07/2022 06:00 Creatinine-Blood 0.8 mg/dL ()?? 07/07/2022 06:00 Estimated GFR Creatinine 114 ML/MIN/1.73 M2 ()?? 07/07/2022 06:00 Calcium 8.5 mg/dL (Low)?? 07/07/2022 06:00 Phosphorus 1.4 mg/dL (Low)?? 07/07/2022 06:00 Magnesium 1.9 mg/dL ()?? 07/07/2022 06:00 Lactate 1.2 mmol/L ()?? 07/06/2022 11:07 C-Reactive Protein 9.5 mg/dL (High)?? 07/06/2022 11:07 ?? HEME OTHER Sed Rate 44 mm/hr (High)?? 07/06/2022 11:07 Hold Blue Top SPECIMEN DISCARDED AFTER 4 HOURS. ()?? 07/06/2022 11:07 ?? VIROLOGY COVID-19 POC Result NEGATIVE ()?? 07/06/2022 13:56 Influenza A POC Result NEGATIVE ()?? 07/06/2022 13:57 Influenza B POC Result NEGATIVE ()?? 07/06/2022 13:57 ? Abnormal Labs ?? BLOOD COUNT & DIFF ??Abs. Imm Gran ??0.0 k/mm3 () ??07/07/2022 06:00 ??Abs. Cotton ??1.6 k/mm3 (High) ??07/07/2022 06:00 ??Abs. NRBC ??0.0 k/mm3 () ??07/07/2022 06:00 ??Hct ??35.1 % (Low) ??07/07/2022 06:00 ??Hgb ??11.8 Gm/dL (Low) ??07/07/2022 06:00 ??Imm Gran ??0.3 % () ??07/07/2022 06:00 ??Lymph % ??9.4 % (Low) ??07/07/2022 06:00 ??Cotton % ??16.9 % (High) ??07/07/2022 06:00 ??Nucleated RBC (Automated) ??0.0 #/100 WBC'S () ??07/07/2022 06:00 ??RBC ??4.35 m/mm3 (Low) ??07/07/2022 06:00 ??RDW-SD ??39.6 femtoliters () ??07/07/2022 06:00 ? CHEM GENERAL ??Calcium ??8.5 mg/dL (Low) ??07/07/2022 06:00 ??Estimated GFR Creatinine ??114 ML/MIN/1.73 M2 () ??07/07/2022 06:00 ??Glucose Level ??124 mg/dL (High) ??07/07/2022 06:00 ??Phosphorus ??1.4 mg/dL (Low) ??07/07/2022 06:00 ? Note: Critical results are displayed in red. ? Blood Glucose Trend Glucose Level:??124 mg/dL??High (07/07/22 06:00:00) ? Coagulation Profile?? No qualifying data available. ?? LFT?? No qualifying data available. ?? Urinalysis?? No qualifying data available. ? Blood Gases?? No qualifying data available. ?? Hospital Progress note * Hardik Jiang RN: PERFORM, SIGN, VERIFY Event Display: Progress Note Hospital Authored Date: Patient: BROWN NIXON Age: 36 years Sex: Male : 1985 Associated Diagnoses: None Author: Hardik Jiang RN Findings Problem Related to Alteration in Integumentary : Alteration in Integumentary/new 07/13/2022 14:00 EDT Alteration in Integumentary Related to Cellulitis Goals & Outcomes, Integumentary Pt will maintain adequate fluid & nutritional balance, Pt will maintain intact skin integrity Interventions, Integumentary Resolved problem, Interventions no longer in effect Goals/Interventions, Integumentary Yes Integumentary, Problem Start 07/06/2022 21:04 Reviewed plan with, Integumentary Patient Patient Progression, Integumentary Resolved problem Integumentary, Problem Resolved 07/13/2022 14:24 . Alteration in Psychosocial : Alteration in Psychosocial Function/new 07/13/2022 14:00 EDT Alteration in Psychosocial Related to Substance abuse Goals & Outcomes, Psychosocial Pt will be free from withdrawal symptoms, Pt will detoxify from substance Interventions, Psychosocial Resolved problem, Interventions no longer in effect Goals/Interventions, Psychosocial Yes Psychosocial, Problem Start 07/06/2022 21:04 Reviewed Plan with, Psychosocial Patient Patient Progression, Psychosocial Resolved problem Psychosocial, Problem Resolved 07/13/2022 14:25 . Narrative/Incidental Brown was discharged from the unit at ~1400, transported from unit by EMS personnel in a wheelchair. He had no IV access at this time. Handover report was called to RN at the [facility], [facility] RN expressed that they did not know that they were recieving this patient and left a phone number for their admissions employee. I communicated this with the contact number to catalytic case operator Michael who communicated that he would follow up with them ARTURO. Brown was fully oriented in the morning. He reported left lower leg pain of chronic origin but declined prn medication. He denied dyspnea. Lungs were clear on room air.. Discharge Information Case Management Discharge Plan : Case Management Discharge Plan Data 07/13/2022 9:36 EDT Discharge Level of Care at Discharge Inpatient Rehab Facility/Unit Discharge Transportation Arranged [facility] Buffy Morrell [facility] [phone] Mode of Transportation Arranged Chair Van Name of Agency #1 [facility] Design Coordinator #1 [facility] [phone] Service Categories #1 Other: [facility] inpatient treatment Service Comments #1 You will be transported to [facility] via chair van. If you have any follow up questions, please be in touch with your CCA team. Thank you for allowing me to assist in your care here and best of luck in the future. * Alton LINCOLN, Ray Pritchett: PERFORM Event Display: Progress Note Hospital Authored Date: Patient: ??BROWN NIXON ? Age:??36 Years?Sex:??Male?:??1985? To whom it may concern ? The above-mentioned patient??received last dose of methadone here in the hospital??on 07/13/2022 at??8:30 AM. ?? Sincerely, Ray Dang MD * Shiloh Oro: PERFORM, SIGN, VERIFY Event Display: Progress Note Hospital Authored Date: Patient: BROWN NIXON Age: 36 years Sex: Male : 1985 Associated Diagnoses: None Author: Shiloh Oro Findings Narrative/Incidental Patient is AOx4. VSS. He reported 6/10 pain in his left leg and prn tylenol given at 0115 and leg raised on pillows. No chest pain, edema, or SOB. Lungs are clear, patient is on room air. Positive bowel soundsPatient has a hard lump to his left AC area. He is a one person assist out of bed. Fall precautions in place. Patient has been resting in bed with no comaplaints overnight. . Note * Hardik Jiang RN: PERFORM Event Display: Discharge/Transfer Note Hospital Authored Date: Nursing Discharge Note Entered On: 07/13/2022 17:00 EDT Performed On: 07/13/2022 17:00 EDT by Hardik Jiang RN Nursing Discharge Note 2 Discharge Time : 07/13/2022 14:00 EDT Discharge Level of Care at Discharge : Inpatient Rehab Facility/Unit Patient Left Unit Via : Wheelchair Patient Accompanied Off Unit with : Ambulance/Chair Van Personnel Handover Given to Transport Personnel : Yes DC Instructions Provided & Signed by Pt : Yes Patient Understands D/C Instructions : Yes Patient Instructions Discharge Signed : Yes Did Pt have Specialty Bed or Wound Vac : No Hardik Jiang RN - 07/13/2022 17:00 EDT * Alton LINCOLN, Ray Pritchett: PERFORM Event Display: Discharge/Transfer Note Hospital Authored Date: Patient: ??BROWN NIXON ? Age:??36 Years?Sex:??Male?:??1985?? Patient Information Discharge Location: [facility] Primary Care Physician: Ning Faye Admit Date/Time: 03/20/23 19:19 Discharge Disposition Discharge Disposition: Alf Facility/Rehab Discharge Diagnosis Cellulitis (L03.90) Opiate withdrawal (F11.93) Opioid use disorder (F11.90) Polysubstance abuse (F19.10) Seizure disorder (G40.909) ?? _ Discharge Medications Amoxicillin-Clavulanate (Augmentin 500 mg-125 mg oral tablet)?1?tab(s)?By Mouth?Every 24 hours?for 5?Days Divalproex Sodium (divalproex sodium 250 mg oral enteric coated tablet)?3?tab(s)?750?Milligram?By Mouth?2 times a day?PLEASE DISPENSE TONIGHT, PATIENT HAS RAN OUT OF MEDS. for seizureslabel in [place] Gabapentin (gabapentin 600 mg oral tablet)?1?tab(s)?600?Milligram?By Mouth?Daily at bedtime?for chronic leg pain Methadone (methadone 10 mg oral tablet)?2?tab(s)?20?Milligram?By Mouth?Daily ? Allergies Allergies ?(Active and Proposed Allergies Only) NKA? (Severity: Unknown severity, Onset: Unknown) ? Future Appointments Wednesday 4:00 PM EDT ?? 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 The patient states that he has been a daily user??of heroin??for many years, and requests??medication assisted treatment??for opioid addiction.??He is agreeable with a trial of methadone. he remained on Methadone 20??mg while inpatient.??Methadone last dose letter has provided to the patient.?? He was continued on IV vancomycin for few days that was switched to IV cefazolin??later duringthe course of hospitalization.?? Surgery has seen the patient for??retained needle fragment??at theantecubital fossa with no recommendation for any surgical intervention.?? He remained hemodynamically stable throughout hospital stay. ??Therefore, the patient be discharged in stable condition to??the facility for substance use disorder. Objective Assessment and Plan ?? Cellulitis (L03.90):? Blood cultures were drawn at [facility] is negative Patient has had a brisk response??to IV vancomycin alone. He has no fever or leukocytosis presently??and there does not appear to be a drainable abscess.?? On IV vancomycin, will change to??IV cefazolin while inpatient and then switch to p.o. equivalent??such as Augmentin or??doxycycline.? Surgery has seen and evaluated patient for retained??needle fragments??at the antecubital fossa??with no recommendations for any surgical intervention. ?? Opioid use disorder (F11.90):? Opiate withdrawal (F11.93): Patient appears quite comfortable on methadone 20 mg daily. continue Methadone 20 mg ?? Seizure disorder (G40.909):? Valproic acid level was subtherapeutic and the patient was likely not taking it prior to admission. Continue Depakote Repeat level therapeutic at??84.6. ? Measurements?? Height: 165 cm (07/13/22) Weight: 86.3 kg (07/06/22) Dry Weight: 86.3 kg (07/06/22) Body Mass Index:??31.7 kg/m2??Critical (07/06/22) ? Vital Signs?? Temperature: 97.4 DegF (07/13/22 06:59:00) Temperature Route: Oral (07/13/22 06:59:00) Pulse Rate:??52 bpm??Low (07/13/22 06:59:00) Respiratory Rate: 18 br/min (07/13/22 08:30:00) Systolic Blood Pressure: 119 mm Hg (07/13/22 06:59:00) Diastolic Blood Pressure: 74 mm Hg (07/13/22 06:59:00) Blood pressure sites: Arm, left (07/13/22 06:59:00) Mean Arterial Pressure: 89 mm Hg (07/13/22 06:59:00) Pulse Pressure: 45 mm Hg (07/13/22 06:59:00) Oxygen Saturation: 99 % (07/13/22 06:59:00) Mode of Delivery (Oxygen): Room air (07/13/22 06:59:00) Early Warning Score: 2 (07/13/22 08:35:33) ? . Physical Exam General: This is sleepy but arousable??gentleman in no acute distress. Head EENT:??Extraocular muscle movement intact. Moist mucous membranes. Neck: Supple.?? No JVD. Respiratory:??Clear to auscultation. No wheezing or crackles. No use of accessory muscles. Cardiovascular:??S1S2 regular. No murmurs, rubs or gallops. Gastrointestinal:??Abdomen soft, non-tender, non-distended. Normal bowel sounds. Genitourinary:??No CVA tenderness. Extremities: There is a??1.5 to 2 cm tender phlegmon??in the left antecubital fossa.?? There are multiple injection sites??on both arms none of which appear to be inflamed except for the??left antecubital fossa.?? No lower extremity edema Neurologic:??AAOx3, Speech normal. No focal neurological deficits. Skin:??No rash. Psychiatric:??Normal mood and affect Pending Results Add On Lab Order ordered on 07/07/2022 COVID-19 (2019 Novel Coronavirus) PCR ordered on 07/13/2022 Post Discharge Care Discharge ?07/13/22 11:18:00 EDT Home Health Face to Face ^HomeHealth[facility] Results Discharge Labs BLOOD COUNT & DIFF WBC 9.2 k/mm3 ()?? 07/07/2022 06:00 RBC 4.35 m/mm3 (Low)?? 07/07/2022 06:00 Hgb 11.8 Gm/dL (Low)?? 07/07/2022 06:00 Hct 35.1 % (Low)?? 07/07/2022 06:00 MCV 80.7 femtoliters ()?? 07/07/2022 06:00 MCH 27.1 pg ()?? 07/07/2022 06:00 MCHC 33.6 g/dL ()?? 07/07/2022 06:00 Platelet Count 150 k/mm3 ()?? 07/07/2022 06:00 RDW-SD 39.6 femtoliters ()?? 07/07/2022 06:00 MPV 10.2 femtoliters ()?? 07/07/2022 06:00 Nucleated RBC (Automated) 0.0 #/100 WBC'S ()?? 07/07/2022 06:00 Abs. NRBC 0.0 k/mm3 ()?? 07/07/2022 06:00 Abs. Neut 6.7 k/mm3 ()?? 07/07/2022 06:00 Abs. Lymph 0.9 k/mm3 ()?? 07/07/2022 06:00 Abs. Cotton 1.6 k/mm3 (High)?? 07/07/2022 06:00 Abs. Eo 0.0 k/mm3 ()?? 07/07/2022 06:00 Abs. Baso 0.0 k/mm3 ()?? 07/07/2022 06:00 Neut % 72.7 % ()?? 07/07/2022 06:00 Lymph % 9.4 % (Low)?? 07/07/2022 06:00 Cotton % 16.9 % (High)?? 07/07/2022 06:00 Eos % 0.4 % ()?? 07/07/2022 06:00 Baso % 0.3 % ()?? 07/07/2022 06:00 Imm Gran 0.3 % ()?? 07/07/2022 06:00 Abs. Imm Gran 0.0 k/mm3 ()?? 07/07/2022 06:00 ?? CHEM GENERAL Sodium 133 mmol/L ()?? 07/07/2022 06:00 Potassium 4.2 mmol/L ()?? 07/07/2022 06:00 Chloride 100 mmol/L ()?? 07/07/2022 06:00 Bicarbonate Level 27 mmol/L ()?? 07/07/2022 06:00 Anion Gap 6 ()?? 07/07/2022 06:00 Glucose Level 124 mg/dL (High)?? 07/07/2022 06:00 BUN 20 mg/dL ()?? 07/07/2022 06:00 Creatinine-Blood 0.7 mg/dL ()?? 07/11/2022 06:17 Estimated GFR Creatinine 121 ML/MIN/1.73 M2 ()?? 07/11/2022 06:17 Calcium 8.5 mg/dL (Low)?? 07/07/2022 06:00 Phosphorus 1.4 mg/dL (Low)?? 07/07/2022 06:00 Magnesium 1.9 mg/dL ()?? 07/07/2022 06:00 Protein, Total 6.4 Gm/dL ()?? 07/07/2022 06:00 Albumin 3.3 Gm/dL (Low)?? 07/07/2022 06:00 Alkaline Phosphatase 108 units/L ()?? 07/07/2022 06:00 AST (SGOT) 43 units/L (High)?? 07/07/2022 06:00 ALT (SGPT) 34 units/L ()?? 07/07/2022 06:00 Bilirubin, Total 0.4 mg/dL ()?? 07/07/2022 06:00 Bilirubin, Direct 0.1 mg/dL ()?? 07/07/2022 06:00 Bilirubin, Indirect 0.3 mg/dL ()?? 07/07/2022 06:00 ?? HEME OTHER Hold Lavender Top SPECIMEN DISCARDED AFTER 24 HOURS. ()?? 07/11/2022 06:17 ? MISC. CHEMISTRY Hold Gel Top SPECIMEN DISCARDED AFTER 1 WEEK ()?? 07/11/2022 06:17 ? TOXICOLOGY/TDM Valproic Level 84.6 mg/L ()?? 07/11/2022 06:17 Vancomycin Level, Random 7.5 mg/L (Low)?? 07/10/2022 11:01 ?? VIROLOGY COVID-19 PCR Specimen Source NASAL ()?? 07/09/2022 05:01 COVID-19 PCR Result NEGATIVE ()?? 07/09/2022 05:01 ? 50??minutes spent on discharge * Joesph Sidhu: SIGN, VERIFY, PERFORM Event Display: Case Management Discharge Plan Authored Date: Patient: BROWN NIXON Age: 36 years Sex: Male : 1985 Associated Diagnoses: None Author: Joesph Sidhu Past Medical History Procedure/Surgical Profile Incision and drainage, upper arm or elbow area; deep abscess or hematoma (02338) on 07/25/2019 at 33 Years. Comments: 07/25/2019 19:06 Devante Eaton MD Left antecubital fossa injection site Removal of foreign body, upper arm or elbow area; subcutaneous (47027) on 07/25/2019 at 33 Years. Comments: 07/25/2019 19:06 Devante Eaton MD Left antecubital fossa Problem list All Problems Seizure disorder / Confirmed *[id number] Senior / SNOMED CT 002470234 / Confirmed Cigarette smoker / SNOMED CT 212185111 / Confirmed History of hepatitis C / SNOMED CT 4910740111 / Confirmed History of substance abuse / SNOMED CT 1074816724 / Confirmed Hyperlipidemia / SNOMED CT 45296421 / Confirmed Obese class I / SNOMED CT 574426006626582 / [place] II diagnosis Seizure / SNOMED CT 550554959 / Confirmed Allergies Allergic Reactions (Selected) NKA * Hardik Jiang RN: PERFORM Event Display: Patient Education/Instruction Authored Date: Inpatient Adult Discharge Instructions [address] [address] Name: BROWN NIXON : 1985 Visit: 07/06/2022 19:19:00 Current Date: 07/13/2022 14:14 Account: [id number] Inpatient Adult Discharge Instructions We would like to thank you for allowing us to assist you with your healthcare needs. The following includes patient education materials and information regarding your injury/illness. Our entire staffstrives to provide an excellent experience for our patients and their families. PLEASE ENSURE YOU FOLLOW-UP PER THE INSTRUCTIONS BELOW! ?? YOUR OPINION IS IMPORTANT TO US! Please complete the survey you may receive by mail or email. Your feedback will be used to make improvements to the healthcare experiences of our patients and their families. Surveys are administered by [employer]. ?? If further treatment with your primary care physician or another doctor is recommended, it is important for you to keep the appointment. Call your primary care physician or return to the Emergency Department immediately if your condition worsens, fails to improve, or new symptoms develop. If you need to find a doctor, you can call [facility] [employer] for a referral at [phone] or toll free at [phone] or log in to [email or web address].. ?? You can view and manage your care through the patient portal or by using a health care ankita of your choosing. [employer] is a website that allows you to securely view your medical information including your hospital discharge summary, office visit summaries, medications and follow-up visits. You can also request appointments, renew medications, and request access to your medical information using a health care ankita of your choosing, or just ask a question. You can enroll at [email or web address] or register during your next office visit. You have been discharged from [facility], Patient Care Unit: [id number]. If you have any questions regarding these instructions after you leave, please call us and we will be happy to assist you. [facility] Your Care Team Attending Physician Ray Dang MD Discharging Providers Ray Dang MD Reason for Admission CELLULITIS Your Diagnosis Cellulitis Polysubstance abuse Opiate withdrawal Seizure disorder Opioid use disorder Tests Performed Below is a partial list of the tests performed during your hospitalization. You may have had other tests and procedures not included in this list. Please discuss all test results with your provider. BUN Calcium Level CBC w/ Differential COVID-19 (2019 Novel Coronavirus) PCR Creatinine Electrolytes Glucose Level HEPATIC FUNCTION PANEL HOLD GEL TUBE HOLD LAVENDER TUBE Magnesium Level Phosphorus Level VALPROIC Vancomycin Random Primary Care Provider Ning Faye Advance Directive Health Care Proxy on File Yes - Health Care Proxy Patient has a Designated Caregiver: No Discharge Vitals Temperature: 97.9 DegF Height: 165 cm Pulse Rate: 69 bpm Weight: 86.3 kg Respiratory Rate: 20 br/min Body Mass Index:??31.7 kg/m2??Critical Systolic Blood Pressure: 121 mm Hg Body surface area: 1.99 Diastolic Blood Pressure: 83 mm Hg ?? Oxygen Saturation: 99 % ?? Studies Pending All tests and labs ordered during this hospital stay have been completed unless listed below. Please discuss all pending results with your provider listed above in these instructions. ?? Add On Lab Order COVID-19 (2019 Novel Coronavirus) PCR What to do next Instructions From Your Doctor Discharge Orders Scheduled Follow-Up Appointments Wednesday 4:00 PM EDT ?? With: Ning Faye Where: [address] [address]- Discharge Medications BROWN NIXON :1985 Visit Date:07/06/2022 Medications: Please continue your medications until treatment is completed or stopped by your provider. Medications not listed below should be discontinued. Discuss any questions related to medications with your provider. What How Much When Instructions Next Dose New Amoxicillin-Clavulanate (Augmentin 500 mg-125 mg oraltablet) 1 tab(s) Oral Every 24 hours Duration: 5 Days Begin 24 hour schedule this evening at earliest convenience this evening 07/13 New Methadone (methadone 10 mg oral tablet) 2 tab(s) Oral Daily Tomorrow morning 07/14 Unchanged Divalproex Sodium (divalproex sodium 250 mg oral enteric coated tablet) 3 tab(s) Oral Twice a day PLEASE DISPENSE TONIGHT, PATIENT HAS RAN OUT OF MEDS. for seizures label in [place] ?? This evening 07/14 9pm Unchanged Gabapentin (gabapentin 600 mg oral tablet) 1 tab(s) Oral Daily at Bedtime for chronic leg pain ?? this evening 07/14 9pm Test Results Below is a partial list of the most recent Laboratory test results done prior to this discharge. You may have had other tests and procedures not included in this list. Please discuss all test resultswith your provider. BUN (07/07/2022) ???BUN - 20 mg/dL Calcium Level (07/07/2022) ???Calcium - 8.5 mg/dL CBC w/ Differential (07/07/2022) ???WBC - 9.2 k/mm3???RBC - 4.35 m/mm3???Hgb - 11.8 Gm/dL???Hct - 35.1 %???MCV - 80.7 femtoliters???MCH - 27.1 pg???MCHC - 33.6 g/dL???Platelet Count - 150 k/mm3???RDW-SD - 39.6 femtoliters???MPV - 10.2 femtoliters???Nucleated RBC (Automated) - 0.0 #/100 WBC'S???Abs. NRBC - 0.0 k/mm3???Abs. Neut - 6.7 k/mm3???Abs. Lymph - 0.9 k/mm3???Abs. Cotton - 1.6 k/mm3???Abs. Eo - 0.0 k/mm3???Abs. Baso - 0.0 k/mm3???Neut % - 72.7 %???Lymph % - 9.4 %???Cotton % - 16.9 %???Eos % - 0.4 %???Baso % - 0.3 %???Imm Gran - 0.3 %???Abs. Imm Gran - 0.0 k/mm3 COVID-19 (2019 Novel Coronavirus) PCR (07/09/2022) ???COVID-19 PCR Specimen Source - NASAL???COVID-19 PCR Result - NEGATIVE Creatinine (07/11/2022) ???Creatinine-Blood - 0.7 mg/dL???Estimated GFR Creatinine - 121 ML/MIN/1.73 M2 Electrolytes (07/07/2022) ???Sodium - 133 mmol/L???Potassium - 4.2 mmol/L???Chloride - 100 mmol/L???Bicarbonate Level - 27 mmol/L???Anion Gap - 6 Glucose Level (07/07/2022) ???Glucose Level - 124 mg/dL HEPATIC FUNCTION PANEL (07/07/2022) ???Protein, Total - 6.4 Gm/dL???Albumin - 3.3 Gm/dL???Alkaline Phosphatase - 108 units/L???AST (SGOT) - 43 units/L???ALT (SGPT) - 34 units/L???Bilirubin, Total - 0.4 mg/dL???Bilirubin, Direct - 0.1 mg/dL???Bilirubin, Indirect - 0.3 mg/dL HOLD GEL TUBE (07/11/2022) ???Hold Gel Top - SPECIMEN DISCARDED AFTER 1 WEEK HOLD LAVENDER TUBE (07/11/2022) ???Hold Lavender Top - SPECIMEN DISCARDED AFTER 24 HOURS. Magnesium Level (07/07/2022) ???Magnesium - 1.9 mg/dL Phosphorus Level (07/07/2022) ???Phosphorus - 1.4 mg/dL VALPROIC (07/11/2022) ???Valproic Level - 84.6 mg/L Vancomycin Random (07/10/2022) ???Vancomycin Level, Random - 7.5 mg/L Allergies (NKA means No Known Allergies) NKA Problems Active Problems??(8) *[id number]-Sita Senior?? Cigarette smoker?? History of hepatitis C?? History of substance abuse?? Hyperlipidemia?? Obese class I?? Seizure?? Seizure disorder?? Education Materials Below is the list of Educational Leaflet Providered with your Discharge Instructions. Valuables and Belongings I fully understand and agree that [facility] accepts no responsibility for all my personal property including clothing, toilet articles, radios, jewelry, dentures, hearing aids, rings, money, or any other property that is in my possession or is brought to me after admission. I understand certain valuables may be placed in a hospital safe for a short period of time. I understand that the hospital is not liable for loss or damage due to accident, fire, or other natural occurrence while said property is in the safe. I accept full responsibility for any personal property that I keep with me, and will not hold the hospital responsible in case of loss or disappearance. I acknowledge that i have been encouraged to send valuables and belongings home. ?? Review of Valuable and Belonging List: With patient Date for Pt to Sign Valuables/Belongings: 07/06/22 21:05:00 ?? Other Discharge Information ? Case Management Discharge Plan?? Discharge Plan?? Discharge Agency Information?? Discharge Level of Care at Discharge: Inpatient Rehab Facility/Unit Name of Agency #1: [facility] Discharge Transportation Arranged: [facility] Buffy Morrell [facility] [phone] Agency Design Coordinator #1: [facility] [phone] Mode of Transportation Arranged: Chair Van Service Categories #1: Other: [facility] inpatient treatment ?? Service Comments #1: You will be transported to [facility] via chair van. If you have any follow up questions, please be in touch with your CCA team. Thank you for allowing me to assist in your care here and best of luck in the future. ?? Pulmonary Rehab Status?? Pulmonary Rehab Discharge Status?? Respiratory Rate: 20 br/min ? Common Emergency Awareness Tips IS IT A STROKE? Act FAST and Check for these signs: FACE Does the face look uneven? ARM Does one arm drift down? SPEECH Does their speech sound strange? TIME Call at any sign of stroke ?? Heart Attack Signs Chest discomfort: Most heart attacks involve discomfort in the center of the chest and lasts more than a few minutes, or goes away and comes back. It can feel like uncomfortable pressure, squeezing, fullness or pain. Discomfort in upper body: Symptoms can include pain or discomfort in one or both arms, back, neck, jaw or stomach. Shortness of breath: With or without discomfort. Other signs: Breaking out in a cold sweat, nausea, or lightheaded. Remember, MINUTES DO MATTER. If you experience any of these heart attack warning signs, call to get immediate medical attention! ?? Smoking can increase your chances of developing chronic health problems and can cause harmful effects to other family members in your house. If you smoke, you are strongly encouraged to quit. Please call [facility] at [phone] or 1-558-106-YTWSID (0769) or log in to [email or web address] for referrals to smoking cessation programs. ?? The National Suicide Prevention Hotline is available 09/11 if you or someone you know needs to find a reason to keep living. By calling 9-757-342-vzjw (6308) you'll be connected to a skilled, trained counselor at a crisis center in your area. INPATIENT DISCHARGE INSTRUCTIONS SIGNATURE PAGE BROWN NIXON Location:[facility] Registration Date and Time:07/06/2022 19:19 EDT Primary Care Physician: Ning Faye, I GREGPHYLLISBROWN, have received the above patient education materials/instructions and have verbalized understanding. If ambulance or transport services are being used I further acknowledge being given a choice of service. ?? If you need to contact me, please call me at this number: . Patient/Papeterie Table Assembler Name: Patient/Papeterie Table Assembler Signature: Relationship to Patient: Witness Name/Signature: Date: Patient Care team information Care Team Personnel Name: Wandy Bailey RN Position: [facility] RN Member Role: Primary Care Nurse Name: Alvarez Sol RN Position: [facility] RN Member Role: Primary Care Nurse Name: Natalia Hanks RN Position: [facility] RN Member Role: Primary Care Nurse Name: Paula Nichols RN Position: [facility] RN Member Role: Primary Care Nurse Name: Stormy Blake RN Position: [facility] RN Member Role: Primary Care Nurse Name: Ning Faye Position: [facility] PCO Associate Professional Member Role: PCP Address: Address: [address] [place] [id number] Name: Maria D Pinto RN Position: [facility] RN Member Role: Primary Care Nurse Name: Kayla Heard RN Position: [facility] RN Member Role: Primary Care Nurse Care Team Related Persons Name: IGNACIO CHAPMAN Address: [address] [address] Name: SENA NIXON Address: [address] [address] Name: WINNIE NIXON Address: [place] [address] Name: LAUREL HERRON Name: SENA CORONA Address: [address] [address]
--- OUTSIDE RECORDS SUMMARY | 2022-08-18 12:46 | XMS_ITS | Continuity of Care Document ---
Author Name Unknown Organization [facility] Address [address] [place] [address]- Care Team Providers Care Laser Beam Machine Operator Name Role Phone Passer Ning FRENCH [id number] - 03/27/22 [facility]/[place] [address]- Attending Physician: Not on Staff, Attending MD Allergies, Adverse Reactions, Alerts No Known Allergies Immunizations Given and Recorded Vaccine Date Status Refusal Reason SARS-CoV-2 (COVID-19) Ad26 vaccine 09/09/20 Record ed tetanus/diphtheria/pertussis, acel(Tdap) 02/10/20 Given tetanus/diphtheria/pertussis, acel(Tdap) 06/07/17 Given tetanus/diphtheria/pertussis, acel(Tdap) 09/08/12 Recorded tetanus/diphtheria/pertussis, acel(Tdap) 08/30/11 Given influenza virus vaccine, inactivated 01/25/18 Give n influenza virus vaccine, inactivated 02/18/17 Give n Medications CeleBREX 200 mg oral capsule 1 capsule = 200 mg, By Mouth, 2 times a day, for Pain with food label in togolese, # 60 capsule, 3 Refills, Maintenance, 03/27/22 12:06:00 EST, Capsule, [id number], Partial fill upon patient request if the prescription is for a schedule II opi... Start Date: 03/27/22 Status: Ordered clotrimazole 1% topical cream 1 application, Topically, 2 times a day, for rash on face, # 60 Gm, 2 Refills, Maintenance, 03/27/22 12:05:00 EST, Cream, [id number], Partial fill upon patient request if the prescription is for a schedule II opioid drug., 1 application Topica... Start Date: 03/27/22 Status: Ordered divalproex sodium 250 mg oral enteric coated tablet 3 tablet = 750 mg, By Mouth, 2 times a day, PLEASE DISPENSE TONIGHT, PATIENT HAS RAN OUT OF MEDS. for seizures label in togolese, # 180 tablet, 6 Refills, Maintenance, 03/27/22 12:05:00 EST, Tablet, [facility]/pharmacy #[id number], Partial fill upon patient reques... Start Date: 03/27/22 Status: Ordered gabapentin 300 mg oral capsule 300 mg, 1, capsule, By Mouth, Daily at bedtime, for chronic leg pain label in togolese, # 30 capsule, Refills 3, Tot. Refills 3, Maintenance, 03/27/22 12:05:00 EST, Route to Pharmacy Electronically, [facility]/pharmacy #[id number], Partial fill upon patient reques... Start Date: 03/27/22 Status: Ordered hydrocortisone 1% topical cream 1 application, Topically, 2 times a day, for rash on face apply in a thin film to the affected skinand rub in gently and completely, # 60 Gm, 2 Refills, Maintenance, 03/27/22 12:05:00 EST, Cream, [facility]/pharmacy #[id number], Partial fill upon patient request... Start Date: 03/27/22 Status: Ordered Problem List Condition Confirmation Course Effective Dates Status H ealth Status Informant Cigarette smoker Confirmed Active History of hepatitis C Confirmed Active History of substance abuse Confirmed Active Hyperlipidemia Confirmed Active Obese class II Confirmed Active *[id number] sylvia Senior Confirmed Active Seizure Confirmed Active Social History Social History Type Response Smoking Status 10 or more cigarette s (1/2 pack or more)/day in last 30 days entered on: 07/30/21 Sex Patient Care team information Care Team Personnel Name: Wandy Bailey RN Position: [facility] RN Member Role: Primary Care Nurse Name: Alvarez Sol RN Position: [facility] RN Member Role: Primary Care Nurse Name: Natalia Hanks RN Position: [facility] RN Member Role: Primary Care Nurse Name: Paula Nichols RN Position: S RN Member Role: Primary Care Nurse Name: Ning Faye Position: [facility] PCO Associate Professional Member Role: PCP Address: Address: [address] [place] [id number] Name: Ilana Houston RN, Maria D Position: S RN Member Role: Primary Care Nurse Care Team Related Persons Name: IGNACIO CHAPMAN Address: [address] [address] Name: SENA GARZA Address: [address] [place] [address] Name: WINNIE GARZA Address: [place] [address] Name: LAUREL HERRON Name: SENA CORONA Address: [address] [address]
--- OUTSIDE RECORDS SUMMARY | 2022-08-18 12:46 | XMS_ITS | Continuity of Care Document ---
Author Name Unknown Organization [facility] Address [address] [place] [address]- Care Team Providers Care Cloth Mercerizer Operator Name Role Phone Passer Ning FRENCH Primary Care Physician Encounter [facility] Date(s): 01/16/20 - 02/15/20 [facility] De [place] [address] [place] [id number]- [facility] Allergies, Adverse Reactions, Alerts Substance Reaction Severity Status NKA Active Immunizations Given and Recorded Vaccine Date Status Refusal Reason tetanus/diphtheria/pertussis, acel(Tdap) 02/10/20 Given tetanus/diphtheria/pertussis, acel(Tdap) 06/07/17 Given tetanus/diphtheria/pertussis, acel(Tdap) 08/30/11 Given influenza virus vaccine, inactivated 01/25/18 Give n influenza virus vaccine, inactivated 02/18/17 Give n Medications acetaminophen 650 mg oral tablet, extended release 1 tablet = 650 mg, By Mouth, Every 8 hours, PRN Pain , Mild, Maintenance, 01/08/20 17:03:00 EDT, ERTablet Start Date: 01/08/20 Status: Ordered baclofen 20 mg oral tablet 20 mg, 1, tablet, By Mouth, 2 times a day, for muscle pain, # 60 tablet, Refills 0, Tot. Refills 0,Maintenance, 12/20/19 15:30:00 EDT, Route to Pharmacy Electronically, [facility] [place], [place] - [id number], 165.1, cm, 12/20/19 15:04:00 EDT,... Start Date: 12/20/19 Status: Ordered divalproex sodium 250 mg oral enteric coated tablet 3 tablet, By Mouth, 2 times a day, For seizures., # 180 tablet, 6 Refills, Maintenance, 12/20/19 15:28:00 EDT, [facility] [id number], 165.1, cm, 12/20/19 15:04:00 EDT, Height, 68.1, kg, 07/25/19 20:48:00 EDT, Dry Weight Start Date: 12/20/19 Status: Ordered ferrous fumarate 325 mg oral tablet 1 tablet = 325 mg, By Mouth, Daily, # 30 tablet, 1 Refills, Maintenance, 01/17/20 11:57:00 EDT, Tablet, [facility] 3, 166, cm, 01/15/20 13:05:00 EDT, Height, 64.6, kg, 01/09/20 12:58:00 EDT, Dry Weight Start Date: 01/17/20 Status: Ordered folic acid 1 mg oral tablet 1 mg, 1, tablet, By Mouth, Daily, # 30 tablet, Refills 0, Tot. Refills 0, Maintenance, 01/15/20 14:50:00 EDT, Route to Pharmacy Electronically, [facility] 3, 166, cm, 01/15/20 13:05:00 EDT, Height, 64.6, kg, 01/09/20 12:58:00 EDT, Dry Weight Start Date: 01/15/20 Status: Ordered methadone 5 mg/5 mL oral solution By Mouth, Daily, 0 Refills, Maintenance, 01/15/20 14:51:00 EDT, Solution, Partial fill upon patientrequest Start Date: 01/15/20 Status: Ordered minocycline 100 mg oral tablet 1 tablet = 100 mg, By Mouth, Every 12 hours, for 21 days, # 42 tablet, 0 Refills, Acute 02/23/20 11:27:00 EST, 02/02/20 11:27:00 EDT, Tablet, [place], [place] - [id number], 166, cm, 02/01/20 11:51:00 EDT, Height, 65, kg, 02/01/20 11:5... Start Date: 02/02/20 Stop Date: 02/23/20 Status: Ordered multivitamin with minerals Antioxidant Multiple Vitamins and Minerals oral capsule 1 capsule, By Mouth, Daily, # 30 capsule, 0 Refills, Maintenance, 01/15/20 14:50:00 EDT, Capsule, [facility], 1 capsule By Mouth Daily,x30 days, 166, cm, 01/15/20 13:05:00 EDT, Height, 64.6, kg, 01/09/20 12:58:00 EDT, Dry Weight Start Date: 01/15/20 Stop Date: 02/14/20 Status: Ordered nabumetone 750 mg oral tablet 1 tablet = 750 mg, By Mouth, 2 times a day, for back pain with food, # 60 tablet, 2 Refills, Maintenance, 12/20/19 15:30:00 EDT, Tablet, [place], [place] - [id number], 165.1, cm, 12/20/19 15:04:00 EDT, Height, 68.1, kg, 07/25/19 20:4... Start Date: 12/20/19 Status: Ordered nicotine 14 mg/24 hr transdermal film, extended release 1 patch, Topically, Daily, to quit smoking, # 30 patch, 1 Refills, Maintenance, 01/17/20 11:57:00 EDT, Patch, [facility], 1 patch Topically Daily,Instr:to quit smoking, 166, cm, 01/15/20 13:05:00 EDT, Height, 64.6, kg, 01/09/20 12:58:00... Start Date: 01/17/20 Status: Ordered Nutritional Supplements See Instructions, # 60 each, Refills 3, Tot. Refills 3, Maintenance, Drink 2 times per day, 12/04/19 17:27:00 EDT, Supply Start Date: 12/04/19 Status: Ordered Problem List Condition Effective Dates Status Health Status Inform ant Cigarette smoker(Confirmed) Active History of substance abuse(Confirmed) Active Hyperlipidemia(Confirmed) Active Seizure(Confirmed) Active Social History Social History Type Response Smoking Status Current every day roc cottrell; Type: Cigarettes entered on: 02/06/15 Sex
--- OUTSIDE RECORDS SUMMARY | 2022-08-18 12:46 | XMS_ITS | Continuity of Care Document ---
Author Name Unknown Organization [facility] Address [address] [place] [address]- Care Team Providers Care Liquor Blender Name Role Phone Ning Faye Primary Care Physician [place] [facility] - 11/26/[place] [facility] [address] [address]- [facility] Attending Physician: Not on Staff, Attending MD Admitting Physician: Ning Faye Allergies, Adverse Reactions, Alerts Substance Reaction Severity Status NKA Active Immunizations Given and Recorded Vaccine Date Status Refusal Reason influenza virus vaccine, inactivated 01/25/18 Give n influenza virus vaccine, inactivated 02/18/17 Give n tetanus/diphtheria/pertussis, acel(Tdap) 06/07/17 Given tetanus/diphtheria/pertussis, acel(Tdap) 08/30/11 Given Medications divalproex sodium 250 mg oral enteric coated tablet 3 tablet, By Mouth, 2 times a day, # 180 tablet, 2 Refills, Maintenance, 10/09/19 17:11:00 EDT, [facility], 165.1, cm, 07/27/19 15:45:00 EDT, Height, 68.1, kg, 07/25/19 20:48:00 EDT, Dry Weight Start Date: 10/09/19 Status: Ordered Methadone = 22 mg, By Mouth, 0 Refills, Maintenance, 07/25/19 11:04:00 EDT, Partial fill upon patient request Start Date: 07/25/19 Status: Ordered Problem List Condition Effective Dates Status Health Status Inform ant Hyperlipidemia(Confirmed) Active Social History Social History Type Response Smoking Status Current every day sm oker; Type: Cigarettes entered on: 02/06/15 Sex
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
--- OUTSIDE RECORDS SUMMARY | 2022-08-18 12:46 | XMS_ITS | Continuity of Care Document ---
Author Name Unknown Organization [facility] Address [address] [place] [id number]- Care Team Providers Care Mechanic Recovery Name Role Phone Passer Ning FRENCH Primary Care Physician Encounter [facility] Date(s): 07/18/22 - 07/18/[address] [address]- Encounter Diagnosis Left thigh pain(Final) - 07/18/22 Left leg pain(Final) - 07/18/22 IVDU (intravenous drug user)(Final) - 07/18/22 Discharge Disposition: A-D/C Home Attending Physician: Torres Sol DO Admitting Physician: Torres Sol DO Referring Physician: Not on Staff, Referring MD [...] Mouth, Every 24 hours, for 5 days, for infection, # 5 tablet, 0 Refills, Acute 07/20/22 16:51:00 EDT, 07/15/22 16:51:00 EDT, Tablet, [id number], Partial fill upon patient requestif the prescription is for a schedule II opioid daniella.Rg. Start Date: 07/15/22 Stop Date: 07/20/22 Status: Ordered clotrimazole 1% topical cream 1 application, Topically, 2 times a day, for rash on face, # 30 Gm, 1 Refills, Maintenance, 07/15/22 16:52:00 EDT, Cream, [facility]/pharmacy #[id number], Partial fill upon patient request if the prescription is for a schedule II opioid drug., 1 application Topica... Start Date: 07/15/22 Status: Ordered divalproex sodium 250 mg oral enteric coated tablet 3 tablet = 750 mg, By Mouth, 2 times a day, PLEASE DISPENSE TONIGHT, PATIENT HAS RAN OUT OF MEDS. for seizures label in tajik, # 180 tablet, 6 Refills, Maintenance, 03/27/22 12:05:00 EST, Tablet, [facility]/pharmacy #[id number], Partial fill upon patient reques... Start Date: 03/27/22 Status: Ordered divalproex sodium 250 mg oral enteric coated tablet = 750 mg, By Mouth, 2 times a day, # 60 tablet, 0 Refills, Maintenance, 07/13/22 15:39:00 EDT, Tablet, [facility]/pharmacy #[id number], Partial fill upon patient request if the prescription is for a schedule II opioid drug., 165, cm, 07/13/22 12:32:00 EDT, Height,... Start Date: 07/13/22 Stop Date: 08/12/22 Status: Ordered gabapentin 300 mg oral capsule 600 mg, 2, capsule, By Mouth, Daily at bedtime, # 60 capsule, Refills 0, Tot. Refills 0, Maintenance, 07/13/22 15:39:00 EDT, Route to Pharmacy Electronically, [facility]/pharmacy #[id number], Partial fill upon patient request if the prescription is for a schedule... Start Date: 07/13/22 Stop Date: 08/12/22 Status: Ordered gabapentin 600 mg oral tablet 1 tablet = 600 mg, By Mouth, Daily at bedtime, for chronic leg pain, # 30 tablet, 2 Refills, Maintenance, 05/14/22 8:55:00 EST, Tablet, [facility]/pharmacy #[id number], Partial fill upon patient request if the prescription is for a schedule II opioid drug., 165, c... Start Date: 05/14/22 Status: Ordered hydrocortisone 1% topical cream 1 application, Topically, 2 times a day, for rash on face apply in a thin film to the affected skinand rub in gently and completely, # 30 Gm, 1 Refills, Maintenance, 07/15/22 16:52:00 EDT, Cream, [id number], Partial fill upon patient request... Start Date: 07/15/22 Status: Ordered methadone 10 mg oral tablet 2 tablet = 20 mg, By Mouth, Daily, 0 Refills, Maintenance, 07/13/22 11:18:00 EDT, Tablet, Partial fill upon patient request if the prescription is for a schedule II opioid drug. Start Date: 07/13/22 Status: Ordered Methadone Tablet 30 mg, Tablet, By Mouth, Once, Confirmed with Shaka goldharry [facility] brown with last dose 07/16 30mg, STAT, 07/18/22 14:17:00 EDT, Stop date 07/18/22 14:17:00 EDT Start Date: 07/18/22 Stop Date: 07/18/22 Status: Completed Problem List Condition Confirmation Course Effective Dates Status H ealth Status Informant Cigarette smoker Confirmed Active History of hepatitis C Confirmed Active History of substance abuse Confirmed Active Hyperlipidemia Confirmed Active *[id number]-Gin sylvia Senior Confirmed Active Seizure Confirmed Active Results Radiology Reports * Exam Date Time Procedure Performing Provider Status 07/18/22 11:[address] Ext Lower W/ Contrast Left Irene Warren; Joseph (Verified) Notes: (CT Ext Lower W/ Contrast Left) Reason For Exam: Fracture, hip;Fracture RESULT: CT Ext Lower W/ Contrast Left CT Ext Lower W/ Contrast Left HX OF PRESENT ILLNESS: Orthopedic surgery 2020 due to MRSA -removed femure and replaced with metal romelia. Fell 3 days ago and has had pain since; Reason: Fracture, hip; Clinical Question(s): Hip; Special Instructions: hardware pt- concerned for fracture or early soft tissue infection TECHNIQUE: Helical CT with contrast formatted in 3 planes. 100 cc of Omnipaque 300 was administeredintravenously. Weight-based protocol using automatic tube modulation was used to optimize exposure parameters. CTDIvol Body: 12.28 mGy, DLP Body: 507 mGy*cm. COMPARISONS: X-ray 07/18/2022 and 05/19/2022 FINDINGS: Bones and joints: * Status post placement of intramedullary romelia through the left femur 2 screws extending into the femoral head and to distal locking screws in the distal metaphysis. The romelia spans a region of extensive irregular, fragmented ossification which appears unchanged since 05/19/2022. * No evidence of acute fracture or dislocation is present. * No abnormal calcifications are noted. Soft Tissues: In the anterior left mid to distal thigh, there is subcutaneous scarlike density, forinstance image 138 of series 606. No abnormal fluid collection to suggest abscess. There is no soft tissue air. IMPRESSION: Chronic appearing extensive irregular, fragmented ossifications around the left femoral romelia. No acute fracture. No abscess. I have personally reviewed the images and I agree with this report. WSN: [id number] Ordering Physician: Maria De Jesus Poole MD Dictated By: Penny Dodge DO Dictated Date/Time: 07/18/22 1:57 pm Reviewed By: Ana Barbosa MD Signed By: Ana Barbosa MD Signed Date/Time: 07/18/22 2:02 pm Transcribed By: CRISS Transcribed Date/Time: 07/18/22 12:02 pm * Exam Date Time Procedure Performing Provider Status 07/18/22 5:25 AM XR Femur 2 Views Left Castaneda , Rohit; Aut h (Verified) Notes: (XR Femur 2 Views Left) Reason For Exam: Pain RESULT: Femur 2 Views Left XR Hip w/Pelvis 2-3 View Left, Femur 2 Views Left Hx of Present Illness: Orthopedic surgery 2020 due to MRSA -removed femur and replaced with metal romelia. Fell 3 days ago and has had pain since.; Reason: Pain; Clinical Question(s): Fracture COMPARISON: Left femur 05/19/2022. TECHNIQUE: AP view of the pelvis, coned AP and oblique views of the left hip; and crosstable lateral views of the left femur. FINDINGS: The bony pelvis appears intact in the frontal projection. There is no evidence of acute fracture ordislocation. The left hip joint is normal for age and symmetric with the right side. The patient is post placement of intramedullary romelia through the left femur, including 2 screws extending into the femoral head, and 2 distal locking screws in the distal metaphysis. The romelia again spans a region of extensive bony deformity and bone graft, unchanged since 05/19/2022. Normal hips and sacroiliac joints. Normal soft tissues. IMPRESSION: No acute fracture. WSN: [id number] Ordering Physician: Ami Jones Dictated By: Nino Ventura MD Dictated Date/Time: 07/18/22 9:19 am Reviewed By: Nino Ventura MD Signed By: Nino Ventura MD Signed Date/Time: 07/18/22 9:19 am Transcribed By: CRISS Transcribed Date/Time: 07/18/22 9:12 am * Exam Date Time Procedure Performing Provider Status 07/18/22 5:25 AM XR Hip w/Pelvis 2-3 View Left Castaneda , Rohit; Auth (Verified) Notes: (XR Hip w/Pelvis 2-3 View Left) Reason For Exam: Pain RESULT: XR Hip w/Pelvis 2-3 View Left XR Hip w/Pelvis 2-3 View Left, Femur 2 Views Left Hx of Present Illness: Orthopedic surgery 2020 due to MRSA -removed femur and replaced with metal romelia. Fell 3 days ago and has had pain since.; Reason: Pain; Clinical Question(s): Fracture COMPARISON: Left femur 05/19/2022. TECHNIQUE: AP view of the pelvis, coned AP and oblique views of the left hip; and crosstable lateral views of the left femur. FINDINGS: The bony pelvis appears intact in the frontal projection. There is no evidence of acute fracture ordislocation. The left hip joint is normal for age and symmetric with the right side. The patient is post placement of intramedullary romelia through the left femur, including 2 screws extending into the femoral head, and 2 distal locking screws in the distal metaphysis. The romelia again spans a region of extensive bony deformity and bone graft, unchanged since 05/19/2022. Normal hips and sacroiliac joints. Normal soft tissues. IMPRESSION: No acute fracture. WSN: [id number] Ordering Physician: Ami Jones Dictated By: Nino Ventura MD Dictated Date/Time: 07/18/22 9:19 am Reviewed By: Nino Ventura MD Signed By: Nino Ventura MD Signed Date/Time: 07/18/22 9:19 am Transcribed By: CRISS Transcribed Date/Time: 07/18/22 9:12 am * Exam Date Time Procedure Performing Provider Status 07/18/22 6:35 AM US Doppler Ext Lower Venous Left Charlotte Simmons; Joseph (Verified) Notes: (US Doppler Ext Lower Venous Left) Reason For Exam: Pain in limb;Other: RESULT: US Doppler Ext Lower Venous Left US Doppler Ext Lower Venous Left INDICATION: Pain. Clinical question: Thrombosis. COMPARISON: Bilateral lower extremity venous Doppler ultrasound 02/07/2021. IMAGING TECHNIQUE: Ultrasound of the veins from the groin through the calf was performed using grayscale, color, and spectral Doppler ultrasound assessing for complete compressibility and normal flowcharacteristics. FINDINGS: The patient was unable to cooperate for Valsalva, but adequate augmentation waveforms were demonstrated. Common femoral vein: Patent. No thrombosis. Femoral vein: Patent. No thrombosis. Popliteal vein: Patent. No thrombosis. Gastrocnemius veins: The visualized portions are patent without evidence of thrombosis. Peroneal veins: The visualized portions are patent without evidence of thrombosis. Posterior tibial veins: The visualized portions are patent without evidence of thrombosis. Contralateral common femoral vein: Patent. No thrombosis. OTHER FINDINGS: None. IMPRESSION: No evidence of deep venous thrombosis. Results were relayed by Cortext by Dr. Delvalle to Ami Garnica D.O. on 07/18/2022 7:13 AM. I have personally reviewed the images and I agree with this report. WSN: [id number] Ordering Physician: Bethany Ernandez Dictated By: Bao Delvalle MD Dictated Date/Time: 07/18/22 7:25 am Reviewed By: Nino Ventura MD Signed By: Nino Ventura MD Signed Date/Time: 07/18/22 7:30 am Transcribed By: CRISS Transcribed Date/Time: 07/18/22 7:15 am Vital Signs Most recent to oldest [Reference Range]: 1 2 3 Height 165 cm (07/18/22 6:07 PM) 165 cm (07/18/22 3:51 PM) 165 cm (07/18/22 12:10 AM) Weight 84 kg (07/18/22 6:07 PM) 84 kg (07/18/22 3:51 PM) 84 kg (07/18/22 12:10 AM) Oxygen Saturation [94-100 %] 96 % (07/18/22 3:51 PM) 94 % (07/18/22 12:52 PM) 98 % (07/18/22 8:29 AM) Pulse Rate [55-90 bpm] 70 bpm (07/18/22 3:51 PM) 68 bpm (07/18/22 12:52 PM) 72 bpm (07/18/22 8:29 AM) Body Mass Index [18.5-24.99 kg/m2] 30.85 kg/m2 *>HHI* (07/18/22 3:51 PM) 31.22 kg/m2 *>HHI* (07/18/22 12:07 AM) Blood Pressure [90-138/55-84 mm Hg] 108/65mm Hg (07/18/22 3:51 PM) 116/52mm Hg (07/18/22 12:52 PM) 130/66mm Hg (07/18/22 8:29 AM) Respiratory Rate [16-30 br/min] 18 br/min (07/18/22 3:51 PM) 16 br/min (07/18/22 2:26 PM) 16 br/min (07/18/22 12:52 PM) Temperature [96.8-100.4 DegF] 97.5 DegF (07/18/22 12:52 PM) 97.5 DegF (07/18/22 8:29 AM) 97.9 DegF (07/18/22 6:08 AM) Mode of Delivery (Oxygen) Room air (07/18/22 3:51 PM) Room air (07/18/22 12:52 PM) Room air (07/18/22 8:29 AM) Blood pressure sites Arm, left (07/18/22 3:51 PM) Arm, left (07/18/22 12:52 PM) Arm, left (07/18/22 8:29 AM) Temperature Route Oral (07/18/22 12:52 PM) Oral (07/18/22 8:29 AM) Oral (07/18/22 6:08 AM) Dry Weight 84 kg (07/18/22 6:07 PM) 84 kg (07/18/22 3:51 PM) 84 kg (07/18/22 12:10 AM) Weight Obtained Via Standing scale (07/18/22 12:07 AM) Dry Weight Obtained Via Standing scale (07/18/22 12:07 AM) Social History Social History Type Response Smoking Status 10 or more cigarette s (1/2 pack or more)/day in last 30 days entered on: 07/30/21 Sex Note * AIDASPmoirascJULIETA andrews S: Bao Santos MD: SIGN Nino Ventura MD: VERIFY Event Display: Result: Authored Date: [id number] US Doppler Ext Lower Venous Left INDICATION: Pain. Clinical question: Thrombosis. COMPARISON: Bilateral lower extremity venous Doppler ultrasound 02/07/2021. IMAGING TECHNIQUE: Ultrasound of the veins from the groin through the calf was performed using grayscale, color, and spectral Doppler ultrasound assessing for complete compressibility and normal flowcharacteristics. FINDINGS: The patient was unable to cooperate for Valsalva, but adequate augmentation waveforms were demonstrated. Common femoral vein: Patent. No thrombosis. Femoral vein: Patent. No thrombosis. Popliteal vein: Patent. No thrombosis. Gastrocnemius veins: The visualized portions are patent without evidence of thrombosis. Peroneal veins: The visualized portions are patent without evidence of thrombosis. Posterior tibial veins: The visualized portions are patent without evidence of thrombosis. Contralateral common femoral vein: Patent. No thrombosis. OTHER FINDINGS: None. IMPRESSION: No evidence of deep venous thrombosis. Results were relayed by Cortext by Dr. Delvalle to Ami Garnica D.O. on 07/18/2022 7:13 AM. I have personally reviewed the images and I agree with this report. WSN: [id number] Ordering Physician: Bethany Ernandez Dictated By: Bao Delvalle MD Dictated Date/Time: 07/18/22 7:25 am Reviewed By: Nino Ventura MD Signed By: Nino Ventura MD Signed Date/Time: 07/18/22 7:30 am Transcribed By: CRISS Transcribed Date/Time: 07/18/22 7:15 am XR Femur - left 2 Views * Rip , JULIETA S: Nino Martinez MD: VERIFY Event Display: Result: Authored Date: [id number] XR Hip w/Pelvis 2-3 View Left, Femur 2 Views Left Hx of Present Illness: Orthopedic surgery 2020 due to MRSA -removed femur and replaced with metal romelia. Fell 3 days ago and has had pain since.; Reason: Pain; Clinical Question(s): Fracture COMPARISON: Left femur 05/19/2022. TECHNIQUE: AP view of the pelvis, coned AP and oblique views of the left hip; and crosstable lateral views of the left femur. FINDINGS: The bony pelvis appears intact in the frontal projection. There is no evidence of acute fracture ordislocation. The left hip joint is normal for age and symmetric with the right side. The patient is post placement of intramedullary romelia through the left femur, including 2 screws extending into the femoral head, and 2 distal locking screws in the distal metaphysis. The romelia again spans a region of extensive bony deformity and bone graft, unchanged since 05/19/2022. Normal hips and sacroiliac joints. Normal soft tissues. IMPRESSION: No acute fracture. WSN: [id number] Ordering Physician: Ami Jones Dictated By: Nino Ventura MD Dictated Date/Time: 07/18/22 9:19 am Reviewed By: Nino Ventura MD Signed By: Nino Ventura MD Signed Date/Time: 07/18/22 9:19 am Transcribed By: CRISS Transcribed Date/Time: 07/18/22 9:12 am XR Pelvis and Hip - left Views * BHSPowerscribe , CIS S: TRANSCRIBE Nino Ventura MD: VERIFY Event Display: Result: Authored Date: [id number] XR Hip w/Pelvis 2-3 View Left, Femur 2 Views Left Hx of Present Illness: Orthopedic surgery 2020 due to MRSA -removed femur and replaced with metal romelia. Fell 3 days ago and has had pain since.; Reason: Pain; Clinical Question(s): Fracture COMPARISON: Left femur 05/19/2022. TECHNIQUE: AP view of the pelvis, coned AP and oblique views of the left hip; and crosstable lateral views of the left femur. FINDINGS: The bony pelvis appears intact in the frontal projection. There is no evidence of acute fracture ordislocation. The left hip joint is normal for age and symmetric with the right side. The patient is post placement of intramedullary romelia through the left femur, including 2 screws extending into the femoral head, and 2 distal locking screws in the distal metaphysis. The romelia again spans a region of extensive bony deformity and bone graft, unchanged since 05/19/2022. Normal hips and sacroiliac joints. Normal soft tissues. IMPRESSION: No acute fracture. WSN: [id number] Ordering Physician: Ami Jones Dictated By: Nino Ventura MD Dictated Date/Time: 07/18/22 9:19 am Reviewed By: Nino Ventura MD Signed By: Nino Ventura MD Signed Date/Time: 07/18/22 9:19 am Transcribed By: CRISS Transcribed Date/Time: 07/18/22 9:[address] Lower extremity - left W contrast IV * [facility]SPowerscribe , CIS S: TRANSCRIAna Brody MD: VERIFY Penny Dodge DO: SIGN Event Display: Result: Authored Date: [id number] CT Ext Lower W/ Contrast Left HX OF PRESENT ILLNESS: Orthopedic surgery 2020 due to MRSA -removed femure and replaced with metal romelia. Fell 3 days ago and has had pain since; Reason: Fracture, hip; Clinical Question(s): Hip; Special Instructions: hardware pt- concerned for fracture or early soft tissue infection TECHNIQUE: Helical CT with contrast formatted in 3 planes. 100 cc of Omnipaque 300 was administeredintravenously. Weight-based protocol using automatic tube modulation was used to optimize exposure parameters. CTDIvol Body: 12.28 mGy, DLP Body: 507 mGy*cm. COMPARISONS: X-ray 07/18/2022 and 05/19/2022 FINDINGS: Bones and joints: * Status post placement of intramedullary romelia through the left femur 2 screws extending into the femoral head and to distal locking screws in the distal metaphysis. The romelia spans a region of extensive irregular, fragmented ossification which appears unchanged since 05/19/2022. * No evidence of acute fracture or dislocation is present. * No abnormal calcifications are noted. Soft Tissues: In the anterior left mid to distal thigh, there is subcutaneous scarlike density, forinstance image 138 of series 606. No abnormal fluid collection to suggest abscess. There is no soft tissue air. IMPRESSION: Chronic appearing extensive irregular, fragmented ossifications around the left femoral romelia. No acute fracture. No abscess. I have personally reviewed the images and I agree with this report. WSN: [id number] Ordering Physician: Maria De Jesus Poole MD Dictated By: Penny Dodge DO Dictated Date/Time: 07/18/22 1:57 pm Reviewed By: Ana Barbosa MD Signed By: Ana Barbosa MD Signed Date/Time: 07/18/22 2:02 pm Transcribed By: CRISS Transcribed Date/Time: 07/18/22 12:02 pm Patient Care team information Care Team Personnel Name: Wandy Bailey RN Position: [facility] SN RN Member Role: Primary Care Nurse Name: Alvarez Sol RN Position: [facility] RN Member Role: Primary Care Nurse Name: Natalia Hanks RN Position: [facility] RN Member Role: Primary Care Nurse Name: Paula Nichols RN Position: [facility] RN Member Role: Primary Care Nurse Name: Stormy Blake RN Position: [facility] RN Member Role: Primary Care Nurse Name: Ning Faye Position: [facility] PCO Associate Professional Member Role: PCP Address: Address: [address] [place] [address] Name: Maria D Pinto RN Position: [facility] RN Member Role: Primary Care Nurse Name: Kayla Heard RN Position: [facility] RN Member Role: Primary Care Nurse Name: Tierney Ibarra Position: [facility] ED RN W/OE and Tasks Member Role: Patient Care Provider Name: Torres Sol DO Position: [facility] ED Medicine MD Member Role: Admitting Physician Address: Address: [address] [place] [id number]- Name: Lv Soni MD Position: [facility] Resident Member Role: ED Resident Address: Address: [address] [place] [id number]- Name: Ina Ding Position: [facility] ED TA [facility] Member Role: Maintenance Scheduler Care Team Related Persons Name: CHAPMANAMERICAIE Address: [address] [address] Name: WINNIE GARZA Address: [place] [address] Name: LAUREL HERRON Name: AMI CORONA Address: home [address] [place] [id number] Name: AMI MEDEROS Address: [address] [address]
[2022-08-18 12:47] LABS: Basophils Percent Auto 0.2 % (0-2); Eosinophils Absolute Auto 0.1 X10*3/uL (0.0-0.4); Eosinophils Percent Auto 2.5 % (0-4); Hematocrit 37.5 % (42.0-52.0); Hemoglobin 11.8 g/dl (14.0-18.0); Imm Gran Abs Auto 0.03 X10*3/uL (0.00-0.03); Imm Gran Pct Auto 0.6 % (0.0-0.4); Lymphocytes Absolute Auto 1.6 X10*3/uL (1.2-4.9); Lymphocytes Percent Auto 34.4 % (20-40); Mean Corpuscular HGB Conc 31.5 g/dl (31.0-36.0); Mean Corpuscular Hemoglobin 25.5 pg (27.0-33.0); Mean Platelet Volume 9.8 fL (9.4-12.4); Monocytes Absolute Auto 0.8 X10*3/uL (0.1-1.2); Monocytes Percent Auto 17.8 % (2-11); Neutrophils Absolute Auto 2.1 x10*3/uL (2.0-8.3); Neutrophils Percent Auto 44.5 % (45-73); Platelet Count 178 X10*3/uL (160-400); Red Blood Count 4.63 X10*6/uL (4.60-5.80); Red Cell Distribution Width 13.7 % (11.0-16.0); White Blood Count 4.7 X10*3/uL (4.8-10.8)
--- OUTSIDE RECORDS SUMMARY | 2022-08-18 12:47 | XMS_ITS | Continuity of Care Document ---
Author Name Unknown Organization [facility] ter Address [address] [place] [id number]- Care Team Providers Care Home Extension Agent Name Role Phone Passer Ning FRENCH Primary Care Physician En[place] [facility] [place](s): 07/29/22 - 08/03/[address] [address]- Encounter Diagnosis Intravenous drug abuse, continuous(Final) - 07/29/22 Left leg pain(Final) - 07/29/22 Seizure disorder(Final) - 07/29/22 Fever(Final) - 07/29/22 Discharge Disposition: A-D/C Home Attending Physician: Judy LINCOLN, Lyudmila Johnson Admitting Physician: Rupert LINCOLN, Jamil Murguia Referring Physician: Not on Staff, Referring MD Allergies, Adverse Reactions, Alerts No Known Allergies Immunizations Given and Recorded Vaccine Date Status Refusal Reason [id number] bivalent booster vax 04/23/22 Recorded SARS-CoV-2 (COVID-19) Ad26 vaccine 09/09/20 Record ed tetanus/diphtheria/pertussis, acel(Tdap) 02/10/20 Given tetanus/diphtheria/pertussis, acel(Tdap) 06/07/17 Given tetanus/diphtheria/pertussis, acel(Tdap) 09/08/12 Recorded tetanus/diphtheria/pertussis, acel(Tdap) 08/30/11 Given influenza virus vaccine, inactivated 01/25/18 Give n influenza virus vaccine, inactivated 02/18/17 Give n Medications cephalexin monohydrate 500 mg oral capsule 1 capsule = 500 mg, By Mouth, 4 times a day, # 7 capsule, 0 Refills, Acute 08/04/22 22:00:00 EDT, 08/03/22 10:56:00 EDT, Capsule, [facility], Partial fill upon patient request if the prescription is for a schedule II opioid drug., 166, c... Start Date: 08/03/22 Stop Date: 08/04/22 Status: Ordered divalproex sodium 250 mg oral enteric coated tablet 3 tablet = 750 mg, By Mouth, 2 times a day, PLEASE DISPENSE TONIGHT, PATIENT HAS RAN OUT OF MEDS. for seizures label in beninese, # 180 tablet, 6 Refills, Maintenance, 03/27/22 12:05:00 EST, Tablet, [id number], Partial fill upon patient reques... Start Date: 03/27/22 Status: Ordered gabapentin 300 mg oral capsule 300 mg, 1, capsule, By Mouth, 2 times a day, Refills 0, Maintenance, 07/29/22 14:41:00 EDT, Partialfill upon patient request if the prescription is for a schedule II opioid drug. Start Date: 07/29/22 Status: Ordered gabapentin 300 mg oral capsule 300 mg, Capsule, By Mouth, 08/03/22 9:00:00 EDT Start Date: 08/03/22 Stop Date: 08/03/22 Status: Completed ibuprofen 800 mg oral tablet TAKE 1 TABLET BY MOUTH 3 TIMES A DAY NEEDED FOR PAIN Start Date: 07/29/22 Status: Ordered Methadone = 50 mg, By Mouth, Daily, 0 Refills, Maintenance, 08/03/22 10:56:00 EDT, Tablet, Partial fill upon patient request if the prescription is for a schedule II opioid drug. Start Date: 08/03/22 Status: Ordered Methadone Tablet 50 mg, Tablet, By Mouth, Hold for: drowsiness or RR < 12, 08/03/22 9:00:00 EDT Start Date: 08/03/22 Stop Date: 08/03/22 Status: Completed Problem List Condition Confirmation Course Effective Dates Status H ealth Status Informant Cigarette smoker Confirmed Active History of hepatitis C Confirmed Active History of substance abuse Confirmed Active Hyperlipidemia Confirmed Active *[id number]-[phone]-Gin sylvia Senior Confirmed Active Seizure Confirmed Active Results Orders for Microbiology Reports Name Date Blood Culture (BLOOD CULTURE) 07/29/22 Blood Culture (BLOOD CULTURE) 07/29/22 Blood Culture 07/28/22 Blood Culture #2 07/28/22 Microbiology Reports TEST:Blood Culture STATUS:Auth (Verified) BODY SITE: SOURCE:Blood COLLECTED DATE/TIME:07/29/22 5:30 AM Blood Culture SPECIMEN DESCRIPTION : BLOOD NONE SPECIAL REQUESTS : NONE CULTURE : NO GROWTH 5 DAYS. REPORT STATUS : FINAL 08/03/2022 TEST:Blood Culture STATUS:Auth (Verified) BODY SITE: SOURCE:Blood COLLECTED DATE/TIME:07/29/22 5:15 AM Blood Culture SPECIMEN DESCRIPTION : BLOOD NONE SPECIAL REQUESTS : NONE CULTURE : NO GROWTH 5 DAYS. REPORT STATUS : FINAL 08/03/2022 TEST:Blood Culture, Second Order STATUS:Auth (Verified) BODY SITE: SOURCE:Blood COLLECTED DATE/TIME:07/29/22 3:25 AM Blood Culture, Second Order SPECIMEN DESCRIPTION : BLOOD NO SITE SPECIAL REQUESTS : NONE CULTURE : NO GROWTH 5 DAYS. REPORT STATUS : FINAL 08/03/2022 TEST:Blood Culture STATUS:Auth (Verified) BODY SITE: SOURCE:Blood COLLECTED DATE/TIME:07/29/22 12:33 AM Blood Culture SPECIMEN DESCRIPTION : BLOOD NO SITE SPECIAL REQUESTS : NONE CULTURE : NO GROWTH 5 DAYS. REPORT STATUS : FINAL 08/03/2022 Radiology Reports * Exam Date Time Procedure Performing Provider Status 07/29/22 2:[address] Ext Lower W/ Contrast Right Camilo Mcneil; Auth (Verified) Notes: (CT Ext Lower W/ Contrast Right) Reason For Exam: pain, fever and swelling. eval for soft tissue infection or osteomyelitis;Infection RESULT: CT Ext Lower W/ Contrast Right CT Ext Lower W/ Contrast Left, CT Ext Lower W/ Contrast Right Reason: Pain; pain, fever and swelling. eval for soft tissue infection or osteomyelitis; Clinical Question(s): Tib Fib; Order Comment: TECHNIQUE: Helical CT with contrast formatted in 3 planes. 100 cc of Omnipaque 300 was administeredintravenously. Weight-based protocol using automatic tube modulation was used to optimize exposure parameters. CTDIvol Body: 23.80 mGy, DLP Body: 1167 mGy*cm. COMPARISONS: None FINDINGS: RIGHT: Bones and joints: No fracture or dislocation is present. No erosions, productive changes or abnormal calcifications are noted. Soft Tissues: No evidence of peripherally enhancing subcutaneous or intramuscular abscess collection. Nonspecific subcutaneous fat stranding. LEFT: Bones and joints: No evidence of fracture or dislocation. No evidence of cortical erosion or productive changes. Mild asymmetric osteopenia of the distal femur likely indicative of disuse. Soft Tissues: No evidence of peripherally enhancing subcutaneous or intramuscular abscess collection. Nonspecific subcutaneous fat stranding. IMPRESSION: No evidence of aggressive osteolysis or peripherally enhancing soft tissue collection within eitherleg. Subcutaneous fat stranding and skin thickening greater on the left than right which may represent edema or cellulitis. I have personally reviewed the images and I agree with this report. WSN: [id number] Ordering Physician: Jamil Emery Dictated By: Cris Pan DO Dictated Date/Time: 07/29/22 4:56 pm Reviewed By: Pete Crystal Jr, MD Signed By: Pete Crystal Jr, MD Signed Date/Time: 07/29/22 5:01 pm Transcribed By: CRISS Transcribed Date/Time: 07/29/22 4:39 pm * Exam Date Time Procedure Performing Provider Status 07/29/22 2:[address] Ext Lower W/ Contrast Left Camilo Mcneil; Auth (Verified) Notes: (CT Ext Lower W/ Contrast Left) Reason For Exam: pain, fever and swelling. eval for soft tissue infection or osteomyelitis;Pain RESULT: CT Ext Lower W/ Contrast Left CT Ext Lower W/ Contrast Left, CT Ext Lower W/ Contrast Right Reason: Pain; pain, fever and swelling. eval for soft tissue infection or osteomyelitis; Clinical Question(s): Tib Fib; Order Comment: TECHNIQUE: Helical CT with contrast formatted in 3 planes. 100 cc of Omnipaque 300 was administeredintravenously. Weight-based protocol using automatic tube modulation was used to optimize exposure parameters. CTDIvol Body: 23.80 mGy, DLP Body: 1167 mGy*cm. COMPARISONS: None FINDINGS: RIGHT: Bones and joints: No fracture or dislocation is present. No erosions, productive changes or abnormal calcifications are noted. Soft Tissues: No evidence of peripherally enhancing subcutaneous or intramuscular abscess collection. Nonspecific subcutaneous fat stranding. LEFT: Bones and joints: No evidence of fracture or dislocation. No evidence of cortical erosion or productive changes. Mild asymmetric osteopenia of the distal femur likely indicative of disuse. Soft Tissues: No evidence of peripherally enhancing subcutaneous or intramuscular abscess collection. Nonspecific subcutaneous fat stranding. IMPRESSION: No evidence of aggressive osteolysis or peripherally enhancing soft tissue collection within eitherleg. Subcutaneous fat stranding and skin thickening greater on the left than right which may represent edema or cellulitis. I have personally reviewed the images and I agree with this report. WSN: [id number] Ordering Physician: Jamil Emery Dictated By: Cris Pan DO Dictated Date/Time: 07/29/22 4:56 pm Reviewed By: Pete Crystal Jr, MD Signed By: Pete Crystal Jr, MD Signed Date/Time: 07/29/22 5:01 pm Transcribed By: CRISS Transcribed Date/Time: 07/29/22 4:39 pm * Exam Date Time Procedure Performing Provider Status 07/29/22 3:55 PM US Doppler Ext Lower Venous Right Tigre sheriivone Chuyitazachary; Auth (Verified) Notes: (US Doppler Ext Lower Venous Right) Reason For Exam: pain, swelling, tenderness on RLE;Pain/Tenderness Extremities RESULT: US Doppler Ext Lower Venous Right US Doppler Ext Lower Venous Right Reason: Pain Tenderness Extremities; pain, swelling, tenderness on RLE; Clinical Question(s): Thrombus COMPARISON: Doppler ultrasound of bilateral lower extremity 02/07/2021 IMAGING TECHNIQUE: Ultrasound of the veins from the groin through the calf was performed using grayscale, color, and spectral Doppler ultrasound assessing for complete compressibility and normal flowcharacteristics. FINDINGS: Common femoral vein: Patent. No thrombosis. Femoral vein: Patent. No thrombosis. Popliteal vein: Patent. No thrombosis. Gastrocnemius veins: The visualized portions are patent without evidence of thrombosis. Peroneal veins: The visualized portions are patent without evidence of thrombosis. Posterior tibial veins: The visualized portions are patent without evidence of thrombosis. Contralateral common femoral vein: Patent. No thrombosis. OTHER FINDINGS: IMPRESSION: No evidence of deep venous thrombosis. WSN: [id number] Ordering Physician: Jamil Emery Dictated By: Robert Gongora MD Dictated Date/Time: 07/29/22 4:00 pm Reviewed By: Robert Gongora MD Signed By: Robert Gongora MD Signed Date/Time: 07/29/22 4:00 pm Transcribed By: CRISS Transcribed Date/Time: 07/29/22 3:59 pm * Exam Date Time Procedure Performing Provider Status 07/29/22 7:14 AM XR Femur 2 Views Left [facility] (Verified) Notes: (XR Femur 2 Views Left) Reason For Exam: s/p femur romelia, fall with pain over lateral distal femur;Trauma RESULT: Femur 2 Views Left Femur 2 Views Left, 2 views HX OF PRESENT ILLNESS: L leg pain, has a metal romelia from an old surgery. Pt reports he had a seizureyesterday and re-injured his leg. Reports has not picked up his Depakote refill; Reason: Trauma; s p femur romelia, fall with pain over lateral distal femur; Clinical Question(s): Fracture COMPARISON: 07/18/2022 FINDINGS: No acute fracture or dislocation. Intramedullary romelia with proximal and distal locking screws as well as extensive bone graft material throughout the femoral diaphysis, unchanged in appearance. Normalalignment of the hip and knee. No knee effusion. IMPRESSION: No significant change from 07/18/2022. WSN: [id number] Ordering Physician: Rolly Concepcion Dictated By: Nino Al MD Dictated Date/Time: 07/29/22 8:59 am Reviewed By: Nino Al MD Signed By: Nino Al MD Signed Date/Time: 07/29/22 8:59 am Transcribed By: CRISS Transcribed Date/Time: 07/29/22 8:57 am * Exam Date Time Procedure Performing Provider Status 07/29/22 12:10 AM US Doppler Ext Lower Venous Left Raiza Espinoza (Verified) Notes: (US Doppler Ext Lower Venous Left) Reason For Exam: Pain in limb;Other: RESULT: US Doppler Ext Lower Venous Left US Doppler Ext Lower Venous Left INDICATION: Left lower extremity pain, concern for thrombus. COMPARISON: 02/07/2021. IMAGING TECHNIQUE: Ultrasound of the veins from the groin through the calf was performed using grayscale, color, and spectral Doppler ultrasound assessing for complete compressibility and normal flowcharacteristics. FINDINGS: Common femoral vein: Patent. No thrombosis. Femoral vein: Patent. No thrombosis. Popliteal vein: Patent. No thrombosis. Gastrocnemius veins: The visualized portions are patent without evidence of thrombosis. Peroneal veins: The visualized portions are patent without evidence of thrombosis. Posterior tibial veins: The visualized portions are patent without evidence of thrombosis. Contralateral common femoral vein: Patent. No thrombosis. OTHER FINDINGS: There is diffuse calf edema. IMPRESSION: No evidence of deep venous thrombosis. I have personally reviewed the images and I agree with this report. WSN: [id number] Ordering Physician: Sachin Fishman MD Dictated By: Jacob Schneider MD Dictated Date/Time: 07/29/22 7:07 am Reviewed By: Stormy Figueroa MD Signed By: Stormy Figueroa MD Signed Date/Time: 07/29/22 7:12 am Transcribed By: CRISS Transcribed Date/Time: 07/29/22 0:43 am Vital Signs Most recent to oldest [Reference Range]: 1 2 3 Height 166 cm (08/03/22 10:53 AM) 166 cm (08/02/22 3:46 PM) 166 cm (08/02/22 9:16 AM) Weight 84 kg (07/30/22 8:38 AM) Oxygen Saturation [94-100 %] 98 % (08/03/22 10:53 AM) 97 % (08/03/22 5:00 AM) 96 % (08/02/22 10:00 PM) Pulse Rate [55-90 bpm] 53 bpm *L* (08/03/22 10:53 AM) 52 bpm *L* (08/02/22 10:00 PM) 58 bpm (08/02/22 4:00 PM) Body Mass Index [18.5-24.99 kg/m2] 30.48 kg/m2 *>HHI* (07/30/22 8:38 AM) Blood Pressure [90-138/55-84 mm Hg] 122/73mm Hg (08/03/22 10:53 AM) 107/61mm Hg (08/03/22 5:00 AM) 100/53mm Hg (08/02/22 10:00 PM) Respiratory Rate [16-30 br/min] 18 br/min (08/03/22 10:53 AM) 18 br/min (08/03/22 9:32 AM) 18 br/min (08/03/22 9:32 AM) Temperature [96.8-100.4 DegF] 98.2 DegF (08/03/22 10:53 AM) 97.4 DegF (08/03/22 5:00 AM) 97.5 DegF (08/02/22 10:00 PM) Mode of Delivery (Oxygen) Room air (08/03/22 10:53 AM) Room air (08/03/22 5:00 AM) Room air (08/02/22 10:00 PM) Blood pressure sites Arm, left (08/03/22 10:53 AM) Arm, left (08/03/22 5:00 AM) Arm, left (08/02/22 10:00 PM) Temperature Route Oral (08/03/22 10:53 AM) Oral (08/03/22 5:00 AM) Oral (08/02/22 10:00 PM) Dry Weight 84 kg (07/30/22 8:38 AM) Social History Social History Type Response Smoking Status 10 or more cigarette s (1/2 pack or more)/day in last 30 days entered on: 07/30/21 Sex Admission evaluation note * Rupert LINCOLN, Jamil Murguia: PERFORM Event Display: Admission Note Authored Date: [id number] Patient: ??BROWN NIXON ? Age:??36 Years?Sex:??Male?:??1985?? 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 ??Pain and swelling more so on the left leg than right leg. ?He was seen here on July 18 for left lower extremity pain and swelling. ??An x-ray and CT of the left lower extremity showed chronic calcifications but no abscess or fracture at that time. ??He wasthen discharged home but reports suffering a fall 3 days ago while having a seizure. ??Since that time he is experiencing persistent pain of the left lower extremity made worse with ambulation (ambulates with cane at baseline). ??He also notes subjective fevers, increasing erythema and swelling of bilateral lower extremities over the last few days. ??Patient uses IV cocaine and heroin (1.5 bundles) daily. ??Last use was last night prior to arrival. ??He injects mostly in the left forearm but stephens s not inject in the lower extremities. ??No back pain, chest pain or shortness of breath. ??Patientdoes take daily methadone states he uses 40 mg a day, [facility]. ?? Vitals???Tmax of 100.9 today, hemodynamically stable, saturating 96% on room air ?? Labs???no leukocytosis, he has microcytic hypochromic anemia, hemoglobin/hematocrit is 10.3/31.4 today. ??Looking back at his records, his hemoglobin was between 12 and 13 until June of this year. Platelet counts are WNL. ??He does have elevated inflammatory markers, ESR is 63 and CRP is 10.7. ??Serum lactate is normal. ??Mild hypochloremia noted but otherwise electrolytes and renal function tests are WNL. ??He does have elevated liver function test, alkaline phosphatase is elevated to 173, AST/ALT 66/51, T. bili WNL. ??Tested negative for COVID. 2 sets of blood cultures were drawn and patient was given 1 dose of IV vancomycin earlier this morning. ??He was also given a dose of his Depakote and Tylenol for fever Imaging studies???left lower extremity Doppler was negative for DVT. ??X-ray of left??leg: No acutefracture/dislocation. Intramedullary romelia with proximal and distal locking screws as well as extensive bone graft material throughout the femoral diaphysis, unchanged in appearance. Normal alignment of the hip and knee. No knee effusion ?? Patient has been admitted for pain swelling redness on bilateral lower extremities, left greater than right with concern for cellulitis Review of Systems Review of systems positive for pain erythema swelling??on the bilateral lower extremities,??left greater than right??as well as fevers. ??Negative for chills, fatigue, lightheadedness, dizziness, throat pain,??abdominal pain, nausea vomiting diarrhea, chest pain shortness of breath cough, phlegm production, wheezing, joint pain, joint swelling??rashes, vision problems etc.??positive for seizure as mentioned in HPI Objective Vital Signs?? Temperature: 97.3 DegF (07/29/22 08:27:00) Temperature Route: Oral (07/29/22 08:27:00) Pulse Rate: 76 bpm (07/29/22 13:55:00) Respiratory Rate: 18 br/min (07/29/22 13:55:00) Systolic Blood Pressure: 110 mm Hg (07/29/22 13:55:00) Diastolic Blood Pressure: 59 mm Hg (07/29/22 13:55:00) Blood pressure sites: Arm, right (07/29/22 13:55:00) Mean Arterial Pressure: 76 mm Hg (07/29/22 13:55:00) Pulse Pressure: 51 mm Hg (07/29/22 13:55:00) Oxygen Saturation: 95 % (07/29/22 13:55:00) Mode of Delivery (Oxygen): Room air (07/29/22 13:55:00) Early Warning Score: 4 (07/29/22 13:56:28) ? Intake/Output? No Data Available ? Physical Exam Recent Vital Signs Temperature: 97.3 DegF (07/29/22 08:27:00) Pulse Rate: 76 bpm (07/29/22 13:55:00) Respiratory Rate: 18 br/min (07/29/22 13:55:00) Systolic Blood Pressure: 110 mm Hg (07/29/22 13:55:00) Diastolic Blood Pressure: 59 mm Hg (07/29/22 13:55:00) Oxygen Saturation: 95 % (07/29/22 13:55:00)? General Appearance: Middle-aged gentleman, comfortable, not in any acute distress at this time Cardiovascular: RRR S1 and S2 heard with no M/R/G. No JVD. Respiratory: ??Breath sounds clear to auscultation bilaterally. No wheezing. Good air movement throughout both lungs. GI: Soft. Nontender and nondistended. Normal bowel sounds present throughout abdomen.?No palpable organomegaly MS:??Vertical surgical incision??on left thigh??present. ??Bilateral lower extremities are swollen,edematous, warm to touch??as well as erythematous. ??Calf tenderness is present bilaterally as well. ??Peripheral sensation intact.?? Neuro: ??No slurred speech. ??Patient seen moving their upper and lower extremities independently. Psych: Alert and oriented x3. Appropriate and pleasant. Lines: Peripheral IV in place.? Assessment/Plan Diagnoses Anemia ??(D64.9) Cellulitis of leg ??(L03.119) Fever ??(R50.9) Intravenous drug abuse, continuous ??(F19.10) Left leg pain ??(M79.605) Seizure disorder ??(G40.909) ?? 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 Pain and swelling more so on the left leg than right leg. Patient has been admitted for pain swelling redness on bilateral lower extremities, left greater than right with concern for cellulitis ?? Fever (R50.9):??At this point, patient does not meet SIRS criteria.??He is currently afebrile however had a Tmax of 100.9. Source is bilateral lower extremity cellulitis most likely, left lower extremity has been ruled out for DVT.??In the right lower extremity also has significant calf tenderness on exam along with??erythema and edema, will get a Doppler to rule out DVT on that leg as well. Blood cultures are in process, serum lactate is WNL, I will continue treating him with??vancomycin.??He has significant pain on palpation??on??left lower extremity especially, and elevated inflammatory markers, I am getting a CT??bilateral lower extremities with IV contrast to rule out any??subcutaneous soft tissue infection/osteomyelitis.??IV fluids ordered ?? Anemia (D64.9):??Microcytic and hypochromic, added on anemia panel. Suspected iron deficiency. No reported??GI/ bleeding ?? Intravenous drug abuse, continuous (F19.10):??Addiction medicine consult requested.??COWS protocol in place.??Ordered clonidine 0.1 mg p.o.??every 8 hours as needed restlessness, Vistaril 25 mg p.o. every 4 hours as needed anxiety, Flexeril??10 mg p.o.??3 times daily as needed body aches.??States he takes??methadone??40 mg a day-dose confirmed by pharmacy??tech, 40 mg a day ordered ?? Left leg pain (M79.605):??As needed Tylenol/oxy??for mild-moderate pain respectively. Continue homedose of gabapentin for chronic left??lower extremity pain ?? Seizure disorder (G40.909):??Seizure??precipitated in the setting of missed Depakote dose Neurochecks. Seizure precautions. Continue with Depakote. ?? Smoker???current active smoker, smoking cessation??counseling provided, nicotine, ordered per patient preference. ?? VTE Prophylaxis:??Mike score???4 points, subcutaneous Lovenox. ?VTE Prophylaxis Assessment:??VTE Prophylaxis Ordered ?? Code Status:??Patient is full code ?Order Code Status:??Code Status Ordered ?? Discharge Planning:??Pending transition to p.o. antibiotics/improvement in cellulitis/pending above??work-up including CAT scan/Dopplers ? Histories Allergies Allergies ?(Active and Proposed Allergies Only) NKA? (Severity: Unknown severity, Onset: Unknown) ? Past Medical History/Problem List Active Problems??(7) *[id number]-Sita Senior Cigarette smoker History of hepatitis C History of substance abuse Hyperlipidemia Obese class I Seizure ? Past Surgical History Incision and drainage, upper arm or elbow area; deep abscess or hematoma: 07/25/19 Removal of foreign body, upper arm or elbow area; subcutaneous: 07/25/19 ? Social History Alcohol Details:??Use: Past. ??Frequency: 1-2 times per week. ??Type: Beer, Liquor. Current active smoker, about 1 pack a day, has been smoking for about 20 years ?? Tobacco Details:??Use: 10 or more cigarettes (1/2 pack or more)/day in last 30 days. Details:??Current every day smoker, Type: Cigarettes. ? Family History Maternal uncle has seizure disorder ? Medications Home Medications Clotrimazole Topical (clotrimazole 1% topical cream)?1?ankita?Topically?2 times a day?for rash on face Divalproex Sodium (divalproex sodium 250 mg oral enteric coated tablet)?3?tab(s)?750?Milligram?By Mouth?2 times a day?PLEASE DISPENSE TONIGHT, PATIENT HAS RAN OUT OF MEDS. for seizureslabel in beninese Gabapentin (gabapentin 300 mg oral capsule)?600?Milligram?2?capsule?By Mouth?Daily at bedtime?for 30?Days Gabapentin (gabapentin 300 mg oral capsule)?300?Milligram?1?capsule?By Mouth?2 times a day Hydrocortisone Topical (hydrocortisone 1% topical cream)?1?ankita?Topically?2 times a day?for rash on faceapply in a thin film to the affected skin and rub in gently and completely Ibuprofen (ibuprofen 800 mg oral tablet)?TAKE 1 TABLET BY MOUTH 3 TIMES A DAY NEEDED FOR PAIN Methadone (methadone 40 mg oral tablet, dispersible)?1?tab(s)?40?Milligram?By Mouth?Daily Nabumetone (nabumetone 750 mg oral tablet)?1?tab(s)?750?Milligram?By Mouth?2 times a day?as needed?Pain , Moderate?with food ? Results Recent Labs BLOOD COUNT & DIFF WBC 5.8 k/mm3 ()?? 07/29/2022 03:25 RBC 3.93 m/mm3 (Low)?? 07/29/2022 03:25 Hgb 10.3 Gm/dL (Low)?? 07/29/2022 03:25 Hct 31.4 % (Low)?? 07/29/2022 03:25 MCV 79.9 femtoliters (Low)?? 07/29/2022 03:25 MCH 26.2 pg (Low)?? 07/29/2022 03:25 MCHC 32.8 g/dL (Low)?? 07/29/2022 03:25 Platelet Count 171 k/mm3 ()?? 07/29/2022 03:25 RDW-SD 37.7 femtoliters ()?? 07/29/2022 03:25 MPV 11.1 femtoliters ()?? 07/29/2022 03:25 Nucleated RBC (Automated) 0.0 #/100 WBC'S ()?? 07/29/2022 03:25 Abs. NRBC 0.0 k/mm3 ()?? 07/29/2022 03:25 Abs. Neut 3.9 k/mm3 ()?? 07/29/2022 03:25 Abs. Lymph 1.0 k/mm3 ()?? 07/29/2022 03:25 Abs. Centre 0.8 k/mm3 ()?? 07/29/2022 03:25 Abs. Eo 0.1 k/mm3 ()?? 07/29/2022 03:25 Abs. Baso 0.0 k/mm3 ()?? 07/29/2022 03:25 Neut % 67.4 % ()?? 07/29/2022 03:25 Lymph % 17.5 % ()?? 07/29/2022 03:25 Centre % 13.3 % (High)?? 07/29/2022 03:25 Eos % 1.0 % ()?? 07/29/2022 03:25 Baso % 0.5 % ()?? 07/29/2022 03:25 Imm Gran 0.3 % ()?? 07/29/2022 03:25 Abs. Imm Gran 0.0 k/mm3 ()?? 07/29/2022 03:25 ?? CARDIAC Nt-Probnp 92 pg/mL ()?? 07/28/2022 23:35 ?? CHEM GENERAL Sodium 136 mmol/L ()?? 07/28/2022 23:35 Potassium 3.6 mmol/L ()?? 07/28/2022 23:35 Chloride 97 mmol/L (Low)?? 07/28/2022 23:35 Bicarbonate Level 26 mmol/L ()?? 07/28/2022 23:35 Anion Gap 13 ()?? 07/28/2022 23:35 Glucose Level 85 mg/dL ()?? 07/28/2022 23:35 BUN 15 mg/dL ()?? 07/28/2022 23:35 Creatinine-Blood 0.8 mg/dL ()?? 07/28/2022 23:35 Estimated GFR Creatinine 119 ML/MIN/1.73 M2 ()?? 07/28/2022 23:35 Calcium 8.6 mg/dL ()?? 07/28/2022 23:35 Protein, Total 6.7 Gm/dL ()?? 07/28/2022 23:35 Albumin 3.5 Gm/dL ()?? 07/28/2022 23:35 AG Ratio 1.1 ()?? 07/28/2022 23:35 Alkaline Phosphatase 173 units/L (High)?? 07/28/2022 23:35 AST (SGOT) 66 units/L (High)?? 07/28/2022 23:35 ALT (SGPT) 51 units/L (High)?? 07/28/2022 23:35 Bilirubin, Total 0.4 mg/dL ()?? 07/28/2022 23:35 Lactate 0.9 mmol/L ()?? 07/29/2022 03:12 C-Reactive Protein 10.7 mg/dL (High)?? 07/28/2022 23:35 ?? HEME OTHER Sed Rate 63 mm/hr (High)?? 07/29/2022 00:33 Hold Lavender Top SPECIMEN DISCARDED AFTER 24 HOURS. ()?? 07/29/2022 00:33 Hold Blue Top SPECIMEN DISCARDED AFTER 4 HOURS. ()?? 07/29/2022 00:33 ?? VIROLOGY COVID-19 POC Result NEGATIVE ()?? 07/29/2022 00:06 ? Urinalysis?? No qualifying data available. ?? EKG study * Event Display: ECG 12-Lead Authored Date: Please click on pdf link to open report * Event Display: ECG 12-Lead Authored Date: Ventricular Rate: 62 BPM Atrial Rate: 62 BPM P-R Interval: 184 ms QRS Duration: 88 ms Q-T Interval: 420 ms QTC Calculation(Bazett): 426 ms P [place]: 48 degrees R [place]: 38 degrees T [place]: 18 degrees Normal sinus rhythm Nonspecific T wave abnormality Abnormal ECG When compared with ECG of 23-SEP-2021 19:51, Vent. rate has decreased BY 41 BPM Nonspecific T wave abnormality, worse in Lateral leads Confirmed by ODIN LINCOLN, [facility] ([id number]) on 07/29/2022 7:00:59 AM [place]: ODIN LINCOLN,[facility] Progress note * Izzy Page MD: PERFORM Event Display: [facility] Authored Date: Patient: ??BROWN NIXON ? Age:??36 Years?Sex:??Male?:??1985?? Subjective no acute overnight events pt endorses pain in LLE has been calling some substance use treatment programs but has not heard response yet. Review of Systems neg except per HPI Past Medical History Active Problems??(7) *[phone]-Sita Senior Cigarette smoker History of hepatitis C [...] Details:??Current every day smoker, Type: Cigarettes. ? Objective Vital Signs?? Temperature: 97.6 DegF (08/02/22 15:46:00) Temperature Route: Oral (08/02/22 15:46:00) Pulse Rate: 58 bpm (08/02/22 16:00:00) Respiratory Rate: 18 br/min (08/02/22 17:10:00) Systolic Blood Pressure: 113 mm Hg (08/02/22 16:00:00) Diastolic Blood Pressure: 65 mm Hg (08/02/22 16:00:00) Blood pressure sites: Arm, right (08/02/22 16:00:00) Mean Arterial Pressure: 66 mm Hg (08/02/22 15:46:00) Pulse Pressure: 48 mm Hg (08/02/22 15:46:00) Oxygen Saturation: 96 % (08/02/22 15:46:00) Mode of Delivery (Oxygen): Room air (08/02/22 15:46:00) Early Warning Score: 5 (08/02/22 17:11:05) ? Intake/Output? 07/29 08:02 08/02 07:00 08/01 07:00 07/31 07:00 07/30 07:00 ?? 08/02 18:14 08/02 18:14 08/02 06:59 08/01 06:59 07/31 06:59 Intake ? 2798 ?360 ?720 ?898 ?820 Output ? 8075 ?700 ? 2900 ? 3275 ? 1200 Net Total ?-5277 ? -340 ?-2180 ?-2377 ? -380 ? Physical Exam General: well appearing no acute distress Cardiac: RRR no murmurs rubs gallops Resp: breathing comfortably on room air, anterior lung mcintosh clear to auscultation GI: non tender non distended normoactive bowel sounds LLE: tender to touch on lateral aspect. no swelling or warmth _ Inpatient Medications Medications (19) Active SCHEDULED: (6) Cephalexin Monohydrate 500 mg Capsule (Cephalexin Capsule) ??500 mg, By Mouth, 4 times a day Divalproex 250 mg Tablet (Depakote Tablet) ??750 mg, By Mouth, 2 times a day Enoxaparin 40 mg Inj (Enoxaparin Inj) ??40 mg 0.4 mL, Subcutaneous Injection, Daily Gabapentin 300 mg Capsule (gabapentin 300 mg oral capsule) ??300 mg, By Mouth, 2 times a day Methadone 10 mg Tablet (Methadone Tablet) ??50 mg, By Mouth, Daily NaCl 0.9% Flush 3ml (NaCL 0.9% Flush) ??3 mL, IV Push, Every 8 hours CONTINUOUS: (0) PRN: (13) Acetaminophen 325 mg Tablet (Acetaminophen Tablet) ??650 mg, By Mouth, Every 4 hours Clonidine 0.1 mg Tablet (cloNIDine 0.1 mg oral tablet) ??0.1 mg, By Mouth, Every 8 hours Clotrimazole 1% Cream (Clotrimazole 1% Topical) ??1 application, Topically, 2 times a day Cyclobenzaprine 10 mg Tablet (Flexeril 10 mg oral tablet) ??10 mg, By Mouth, 3 times a day Hydrocortisone 1% Cream (HydroCORTisone ??1% Topical) ??1 application, Topically, 3 times a day HydrOXYzine Pamoate 25mg Capsule (Vistaril Capsule) ??25 mg, By Mouth, Every 4 hours Melatonin 3 mg Tablet (Melatonin Tablet) ??3 mg, By Mouth, Daily at bedtime NaCl 0.9% Flush 3ml (NaCL 0.9% Flush) ??3 mL, IV Push, Every 8 hours nalOXONE ??400mcg/mL Inj (nalOXONE Inj) ??0.2 mg 0.5 mL, IV Push, Every 5 minutes Nicotine 2 mg Gum (Nicotine Gum) ??2 mg, Chew, Every hour Nicotine 2 mg Gum (Nicotine Gum) ??2 mg, Chew, Every hour OxyCODONE 5 mg IR Tablet (oxyCODONE 5 mg oral tablet) ??5 mg, By Mouth, Every 6 hours Senna 8.6 mg / Docusate 50 mg tablet (Docusate/Senna Tablet) ??1 tablet, By Mouth, 2 times a day ? Results Recent Labs BLOOD COUNT & DIFF WBC 3.4 k/mm3 (Low)?? 08/02/2022 01:08 RBC 4.21 m/mm3 (Low)?? 08/02/2022 01:08 Hgb 11.0 Gm/dL (Low)?? 08/02/2022 01:08 Hct 34.7 % (Low)?? 08/02/2022 01:08 MCV 82.4 femtoliters ()?? 08/02/2022 01:08 MCH 26.1 pg (Low)?? 08/02/2022 01:08 MCHC 31.7 g/dL (Low)?? 08/02/2022 01:08 Platelet Count 231 k/mm3 ()?? 08/02/2022 01:08 RDW-SD 41.2 femtoliters ()?? 08/02/2022 01:08 MPV 10.6 femtoliters ()?? 08/02/2022 01:08 Nucleated RBC (Automated) 0.0 #/100 WBC'S ()?? 08/02/2022 01:08 Abs. NRBC 0.0 k/mm3 ()?? 08/02/2022 01:08 ?? CHEM GENERAL Sodium 142 mmol/L ()?? 08/02/2022 01:08 Potassium 4.4 mmol/L ()?? 08/02/2022 01:08 Chloride 105 mmol/L ()?? 08/02/2022 01:08 Bicarbonate Level 28 mmol/L ()?? 08/02/2022 01:08 Anion Gap 9 ()?? 08/02/2022 01:08 Glucose Level 91 mg/dL ()?? 08/02/2022 01:08 BUN 9 mg/dL ()?? 08/02/2022 01:08 Creatinine-Blood 0.6 mg/dL (Low)?? 08/02/2022 01:08 Estimated GFR Creatinine 127 ML/MIN/1.73 M2 ()?? 08/02/2022 01:08 Calcium 8.5 mg/dL (Low)?? 08/02/2022 01:08 ? Abnormal Labs ?? BLOOD COUNT & DIFF ??Abs. NRBC ??0.0 k/mm3 () ??08/02/2022 01:08 ??Hct ??34.7 % (Low) ??08/02/2022 01:08 ??Hgb ??11.0 Gm/dL (Low) ??08/02/2022 01:08 ??MCH ??26.1 pg (Low) ??08/02/2022 01:08 ??MCHC ??31.7 g/dL (Low) ??08/02/2022 01:08 ??Nucleated RBC (Automated) ??0.0 #/100 WBC'S () ??08/02/2022 01:08 ??RBC ??4.21 m/mm3 (Low) ??08/02/2022 01:08 ??RDW-SD ??41.2 femtoliters () ??08/02/2022 01:08 ??WBC ??3.4 k/mm3 (Low) ??08/02/2022 01:08 ? CHEM GENERAL ??Calcium ??8.5 mg/dL (Low) ??08/02/2022 01:08 ??Creatinine-Blood ??0.6 mg/dL (Low) ??08/02/2022 01:08 ??Estimated GFR Creatinine ??127 ML/MIN/1.73 M2 () ??08/02/2022 01:08 ? Note: Critical results are displayed in red. ? Urinalysis?? No qualifying data available. ? Cardiology Labs Nt-Probnp: 92 pg/mL (07/28/22 23:35:00) ?? 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 ? Fever Possible lower extremities cellulitis?? One episode of Tmax of 100.9 ( oral temp). No tachycardia and no leucocytosis. Patient reports pain and swelling of left??lower extremity Doppler bilateral extremities : negative for DVT. High ESR and CRP. CT left and right extremities with contrast : No evidence of aggressive osteolysis or peripherally enhancing soft tissue collection within either leg. Subcutaneous fat stranding and skin thickening greater on the left than right which may represent edema or cellulitis. Patient was started on vancomycin on admission,??but LE??non purulent??therefore vancomycin was discontinued and??patient was??switched to cefazolin. Blood cultures with no growth to date. Has remained afebrile. 08/01: Left LE without erythema or swelling however is tender to touch. ?? Plan: -Continue cephalexin 500mg 4 times a day end date 08/04 for total of 7 days treatment -Tylenol and oxycodone as needed for pain. ? Anemia?? Microcytic and hypochromic. No reported??GI/ bleeding. Iron panel suggestive of ROULA. High ferritin??in the setting of acute infection/stress.?? Can consider discharge on ferrous sulphate once infection is resolved ?? Plan -monitor CBC ?? Intravenous drug abuse, continuous (F19.10):?? Addiction medicine on board. Was previously on methadone 40 mg PO daily. per addiction med, can start methadone 50 mg PO daily Will need last dose letter prior to discharge Patient was referred to rehab programs by addiction medicine. ??He was provided with??their numbers??that he must call every day to check for bed availability Patient needs his hospital room phone fixed??so that he can make these calls ?? Plan: - pt to call?? substance abuse treatment centers -Methadone 50mg PO daily. -clonidine 0.1 mg p.o.??every 8 hours as needed restlessness -Vistaril 25 mg p.o. every 4 hours as needed anxiety -Flexeril??10 mg p.o.??3 times daily as needed body aches.? Seizure disorder (G40.909):?? Seizure??at home precipitated in the setting of missed Depakote dose ?? Plan: -Seizure precautions. -Continue with Depakote 750mg BID ?? Quality Measures Code Status:??FULL DVT Prophylaxis: Lovenox Diet: Regular OMN: safe disposition plan to possible substance treatment program ? Case and plan discussed with attending physician Dr Sammy [place] PGY4 [place]. [phone] ? * Sammy LINCOLN, Brook Harrell: PERFORM Event Display: Progress Note Hospital Authored Date: Patient seen and discussed with Dr. Page. Agree with findings, assessment and plan in this progress note. * Lilliam Carr LPN: PERFORM, SIGN, VERIFY Event Display: Progress Note Hospital Authored Date: Patient: BROWN NIXON Age: 36 years Sex: Male : 1985 Associated Diagnoses: None Author: Lilliam Carr LPN Findings Nursing Data Vital Signs : VITAL SIGNS SECTION 08/02/2022 15:46 EDT Temperature 97.6 DegF Temperature Route Oral Pulse Rate 53 bpm L Respiratory Rate 18 br/min Systolic Blood Pressure 98 mm Hg Diastolic Blood Pressure 50 mm Hg L Blood pressure sites Arm, right Mean Arterial Pressure 66 mm Hg Pulse Pressure 48 mm Hg Oxygen Saturation 96 % Mode of Delivery (Oxygen) Room air . Evaluation Mr. Nixon is alert and oriented x 3. Breathing comfortably on room air. VSS. Patient complains of LLE pain. Patient has trace edema in LLE. PRN oxycodone and tylenol administered as ordered with positive effect. Currently resting in bed. Call cassidy in reach. Safety measures and hourly rounding in place. See biophysical and CIS for more information. . * Lilliam Carr LPN: VERIFY, PERFORM, SIGN Event Display: Progress Note Hospital Authored Date: Patient: BROWN NIXON Age: 36 years Sex: Male : 1985 Associated Diagnoses: None Author: Lilliam Carr LPN Findings Nursing Data IV Lines. : IV Lines. 08/01/2022 16:50 EDT Right Forearm 20 gauge Peripheral IV Activity: Assess Peripheral IV Assess Compare Touch: A/C/T Done, no complications Peripheral IV Site Assessment: Clean, dry and intact Peripheral IV Site Drainage: None Peripheral IV Dressing: Clean, dry and intact Peripheral IV Intervention: Flushed . Vital Signs : VITAL SIGNS SECTION 08/01/2022 16:29 EDT Temperature 97.6 DegF Temperature Route Oral Pulse Rate 50 bpm L Respiratory Rate 18 br/min Systolic Blood Pressure 99 mm Hg Diastolic Blood Pressure 65 mm Hg Blood pressure sites Arm, left Mean Arterial Pressure 76 mm Hg Pulse Pressure 34 mm Hg Oxygen Saturation 98 % Mode of Delivery (Oxygen) Room air . Evaluation Mr. Nixon is alert and oriented x 3. VSS on RA. Medicated as ordered, see MAR. Right forearm access. Patient complains of LLE pain. Trace edema of LLE. PRN tylenol and oxycodone administered as ordered. Cooperative with care. Patient safety occurring with bed in lowest and locked position with call cassidy within reach. Rounding occurring. See biophysical and CIS for more information. . Note * Sharita Patel RN: PERFORM Event Display: Discharge/Transfer Note Hospital Authored Date: [id number] Nursing Discharge Note Entered On: 08/03/2022 15:25 EDT Performed On: 08/03/2022 15:24 EDT by Sharita Patel RN Nursing Discharge Note 2 Discharge Time : 08/03/2022 12:27 EDT Discharge Level of Care at Discharge : Home/[facility]oster Care Patient Left Unit Via : Wheelchair Patient Accompanied Off Unit with : Responsible adult DC Instructions Provided & Signed by Pt : Yes Patient Understands D/C Instructions : Yes Verbalized Understanding of D/C Plan By : Patient Patient Instructions Discharge Signed : Yes Did Pt have Specialty Bed or Wound Vac : No Sharita Patel RN - 08/03/2022 15:24 EDT * Elina Kenny MD: MODIFY, MODIFY, MODIFY, PERFORM, MODIFY, MODIFY Event Display: Discharge/Transfer Note Hospital Authored Date: [id number] Patient: ??BROWN NIXON ? Age:??36 Years?Sex:??Male?:??1985?? Patient Information Discharge Location: Primary Care Physician: Ning Faye Admit Date/Time: 07/29/22 08:02 Discharge Disposition Discharge Disposition: Home: No Services Discharge Diagnosis Anemia (D64.9) Cellulitis of leg (L03.119) Cocaine use disorder, severe, dependence (F14.20) Intravenous drug abuse, continuous (F19.10) Left leg pain (M79.605) Seizure disorder (G40.909) Severe opioid use disorder (F11.20) ?? _ Discharge Medications Cephalexin (cephalexin monohydrate 500 mg oral capsule)?1?capsule?500?Milligram?By Mouth?4 times a day Divalproex Sodium (divalproex sodium 250 mg oral enteric coated tablet)?3?tab(s)?750?Milligram?By Mouth?2 times a day?PLEASE DISPENSE TONIGHT, PATIENT HAS RAN OUT OF MEDS. for seizureslabel in beninese Gabapentin (gabapentin 300 mg oral capsule)?300?Milligram?1?capsule?By Mouth?2 times a day Ibuprofen (ibuprofen 800 mg oral tablet)?TAKE 1 TABLET BY MOUTH 3 TIMES A DAY NEEDED FOR PAIN Methadone?50?Milligram?By Mouth?Daily ? Quality Measures Tobacco Use Treatment:? Medications Started Cephalexin 500 mg 4 times a day Medications Discontinued none Doses Changed Methadone from 40 to 50 mg daily Allergies Allergies ?(Active and Proposed Allergies Only) NKA? (Severity: Unknown severity, Onset: Unknown) ? PCP Follow-Up/Heads-Up Patient was treated for left leg cellulitis and was discharged on Cephalexin with end date 08/04. Patient's Methadone was increased to 50mg Daily per Addiction medicine. Patient was referred to rehab programs and provided with numbers that he must call everyday to check for bed availability. Please follow up on blood culture from 07/29 Future Appointments Wednesday. 2022 3:30 PM EDT ?? 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 CT left lower leg w/ contrast showed : No evidence of aggressive osteolysis or peripherally enhancing soft tissue collection within either leg. Subcutaneous fat stranding and skin thickening greater on the left than right which may represent edema or cellulitis.Patient was started on vancomycin on admission, given by non purulent nature, DC vancomycin and switch to cefazolin. Blood cultures with no growth to date and patient remained afebrile therefore he was switched to PO cephalexin which he tolerated well. Addiction medicine was consulted and suggestedincreasing patient's methadone dose to 50mg daily. Patient tolerated this dose well. ?? Fever ??Possible lower extremities cellulitis ??One episode of Tmax of 100.9 ( oral temp). No tachycardia and no leucocytosis. ??Patient reports pain and swelling of left lower extremity ??Doppler bilateral extremities : negative for DVT. ??High ESR and CRP. ??CT left and right extremities with contrast : No evidence of aggressive osteolysis or peripherally enhancing soft tissue collection within either leg. ??Subcutaneous fat stranding and skin thickening greater on the left than right which may representedema or cellulitis. ??Patient was started on vancomycin on admission, but LE non purulent therefore vancomycin was discontinued and patient was switched to cefazolin. Blood cultures with no growth to date. Has remained afebrile. ??08/03: Left LE without erythema or swelling however is tender to touch. ?Rec: ??-Continue cephalexin 500mg 4 times a day End date 08/04 ??-Tylenol as needed for pain. ? Anemia ??Microcytic and hypochromic. ??No reported GI/ bleeding. ??Iron panel suggestive of ROULA. ??High ferritin in the setting of acute infection/stress. ?Rec: ??-monitor CBC ? Intravenous drug abuse, continuous (F19.10): ??Addiction medicine on board. ??Was previously on methadone 40 mg PO daily. ??per addiction med, can start methadone 50 mg PO daily Will provide last dose letter prior to discharge ?? Rec: ??-Methadone 50mg PO daily. ? Seizure disorder (G40.909): ??Seizure at home precipitated in the setting of missed Depakote dose ?Rec: ??-Continue with Depakote 750mg BID ?? Objective Measurements?? Height: 166 cm (08/03/22) Weight: 84 kg (07/30/22) Dry Weight: 84 kg (07/30/22) Body Mass Index:??30.48 kg/m2??Critical (07/30/22) ? Vital Signs?? Temperature: 98.2 DegF (08/03/22 10:53:00) Temperature Route: Oral (08/03/22 10:53:00) Pulse Rate:??53 bpm??Low (08/03/22 10:53:00) Heart Rate Monitored:??45 bpm??Low (08/03/22 05:00:00) Respiratory Rate: 18 br/min (08/03/22 10:53:00) Systolic Blood Pressure: 122 mm Hg (08/03/22 10:53:00) Diastolic Blood Pressure: 73 mm Hg (08/03/22 10:53:00) Blood pressure sites: Arm, left (08/03/22 10:53:00) Mean Arterial Pressure: 89 mm Hg (08/03/22 10:53:00) Pulse Pressure: 49 mm Hg (08/03/22 10:53:00) Oxygen Saturation: 98 % (08/03/22 10:53:00) Mode of Delivery (Oxygen): Room air (08/03/22 10:53:00) Early Warning Score: 3 (08/03/22 10:55:35) ? . Physical Exam Constitutional: Alert, in no distress. Mental Status: Oriented to person, place and time. Head: Normocephalic. Atraumatic Respiratory: Clear to auscultation. No wheezing, rales or rhonchi. Cardiovascular: S1 S2 regular. No murmurs, rubs or gallops. Gastrointestinal: Abdomen soft, non-tender, non-distended. Neurologic:?? No focal neurological deficits.?? Moves all extremities spontaneously. Sensation intact bilaterally. Skin: Left lower extremity without erythema or edema. Tender to touch Musculoskeletal: No cyanosis or clubbing. No gross deformities. Normal range of motion. Psychiatric:??Cooperative attitude??and blunted affect Consultants ?Consultation Note ?? 07/30/2022 14:08??by Rosita Mike ?Consultation Note ?? 07/30/2022 12:30??by Elina Pena Pending Results ?? Blood Culture ordered on 07/29/2022 Blood Culture ordered on 07/29/2022 Blood Culture #2 ordered on 07/28/2022 Hepatitis C RNA PCR Quant ordered on 07/30/2022 Patient Education Titles Discharge Instructions for Cellulitis?? Cephalexin Oral Tablet?? Follow-Up Appointments Added Follow Up ?Time Frame ?Comments Ning Faye?1 week: call to discuss follow up visit Patient Instructions You came to the hospital with swelling and pain in your legs and were treated for a skin infection called cellulitis. Please continue to take your antibiotics as prescribed. Please follow up with your PCP. Please continue to call the rehab numbers and check for bed availability. Post Discharge Care Diet: Regular Diet Activity: Ambulate with assistance ??3 times a day ??unless otherwise specified Code Status: ?? Full Resuscitation Discharge ?08/03/22 12:12:00 EDT Discharge Prescriptions ?ePrescribed, ??08/03/22 12:12:00 EDT Results Discharge Labs BLOOD COUNT & DIFF WBC 3.4 k/mm3 (Low)?? 08/02/2022 01:08 RBC 4.21 m/mm3 (Low)?? 08/02/2022 01:08 Hgb 11.0 Gm/dL (Low)?? 08/02/2022 01:08 Hct 34.7 % (Low)?? 08/02/2022 01:08 MCV 82.4 femtoliters ()?? 08/02/2022 01:08 MCH 26.1 pg (Low)?? 08/02/2022 01:08 MCHC 31.7 g/dL (Low)?? 08/02/2022 01:08 Platelet Count 231 k/mm3 ()?? 08/02/2022 01:08 RDW-SD 41.2 femtoliters ()?? 08/02/2022 01:08 MPV 10.6 femtoliters ()?? 08/02/2022 01:08 Nucleated RBC (Automated) 0.0 #/100 WBC'S ()?? 08/02/2022 01:08 Abs. NRBC 0.0 k/mm3 ()?? 08/02/2022 01:08 Abs. Neut 3.9 k/mm3 ()?? 07/29/2022 03:25 Abs. Lymph 1.0 k/mm3 ()?? 07/29/2022 03:25 Abs. Centre 0.8 k/mm3 ()?? 07/29/2022 03:25 Abs. Eo 0.1 k/mm3 ()?? 07/29/2022 03:25 Abs. Baso 0.0 k/mm3 ()?? 07/29/2022 03:25 Neut % 67.4 % ()?? 07/29/2022 03:25 Lymph % 17.5 % ()?? 07/29/2022 03:25 Centre % 13.3 % (High)?? 07/29/2022 03:25 Eos % 1.0 % ()?? 07/29/2022 03:25 Baso % 0.5 % ()?? 07/29/2022 03:25 Imm Gran 0.3 % ()?? 07/29/2022 03:25 Abs. Imm Gran 0.0 k/mm3 ()?? 07/29/2022 03:25 ?? CARDIAC Nt-Probnp 92 pg/mL ()?? 07/28/2022 23:35 ? CHEM GENERAL Sodium 142 mmol/L ()?? 08/02/2022 01:08 Potassium 4.4 mmol/L ()?? 08/02/2022 01:08 Chloride 105 mmol/L ()?? 08/02/2022 01:08 Bicarbonate Level 28 mmol/L ()?? 08/02/2022 01:08 Anion Gap 9 ()?? 08/02/2022 01:08 Glucose Level 91 mg/dL ()?? 08/02/2022 01:08 BUN 9 mg/dL ()?? 08/02/2022 01:08 Creatinine-Blood 0.6 mg/dL (Low)?? 08/02/2022 01:08 Estimated GFR Creatinine 127 ML/MIN/1.73 M2 ()?? 08/02/2022 01:08 Calcium 8.5 mg/dL (Low)?? 08/02/2022 01:08 Phosphorus 3.5 mg/dL ()?? 07/31/2022 01:11 Magnesium 2.6 mg/dL (High)?? 07/31/2022 01:11 Protein, Total 5.5 Gm/dL (Low)?? 07/30/2022 05:00 Albumin 3.0 Gm/dL (Low)?? 07/30/2022 05:00 AG Ratio 1.1 ()?? 07/28/2022 23:35 Alkaline Phosphatase 148 units/L (High)?? 07/30/2022 05:00 AST (SGOT) 35 units/L ()?? 07/30/2022 05:00 ALT (SGPT) 30 units/L ()?? 07/30/2022 05:00 Bilirubin, Total 0.2 mg/dL ()?? 07/30/2022 05:00 Bilirubin, Direct <0.2 mg/dL ()?? 07/30/2022 05:00 Bilirubin, Indirect Direct bilirubin is less than the measureable limit. Therefore, indirect mg/dL ()?? 07/30/2022 05:00 Vitamin B12 Level 894 pg/mL ()?? 07/28/2022 23:35 Folic Acid Level HEMOLYZED ng/mL ()?? 07/28/2022 23:35 Lactate 0.9 mmol/L ()?? 07/29/2022 03:12 Iron Level 25 mcg/dL (Low)?? 07/28/2022 23:35 Iron Binding Capacity, Unsaturated 231 mcg/dL ()?? 07/28/2022 23:35 Iron Binding Capacity, Estimated Total 256 mcg/dL ()?? 07/28/2022 23:35 % Iron Saturation 10 % (Low)?? 07/28/2022 23:35 Ferritin Level 436 ng/mL (High)?? 07/28/2022 23:35 C-Reactive Protein 10.7 mg/dL (High)?? 07/28/2022 23:35 ?? HEME OTHER Sed Rate 63 mm/hr (High)?? 07/29/2022 00:33 Hold Lavender Top SPECIMEN DISCARDED AFTER 24 HOURS. ()?? 07/29/2022 00:33 Hold Blue Top SPECIMEN DISCARDED AFTER 4 HOURS. ()?? 07/30/2022 05:00 ? IMMUNOLOGY GENERAL Transferrin 203 mg/dL ()?? 07/28/2022 23:35 ? MISC. CHEMISTRY Hold Green Top SPECIMEN DISCARDED AFTER 1 WEEK ()?? 07/30/2022 05:00 ? SEROLOGY INF DISEASE Hepatitis B Surface Antigen NEGATIVE (N)?? 07/30/2022 10:45 Hepatitis C Ab Reactive by screening EIA. (Abnormal)?? 07/30/2022 10:45 HIV 4th Generation Ab-Ag Result NEGATIVE (N)?? 07/30/2022 10:45 ? VIROLOGY COVID-19 POC Result NEGATIVE ()?? 07/29/2022 00:06 ? Imaging(s) ?CT Ext Lower W/ Contrast Left ?? 07/29/2022 14:59??by Pete Crystal Jr, MD ?IMPRESSION: ?? No evidence of aggressive osteolysis or peripherally enhancing soft tissue collection within eitherleg. ?? Subcutaneous fat stranding and skin thickening greater on the left than right which may represent edema or cellulitis. ?CT Ext Lower W/ Contrast Right ?? 07/29/2022 14:59??by Bonilla Vazquez MD, Pete Johnson ?IMPRESSION: ?? No evidence of aggressive osteolysis or peripherally enhancing soft tissue collection within eitherleg. ?? Subcutaneous fat stranding and skin thickening greater on the left than right which may represent edema or cellulitis. ?US Doppler Ext Lower Venous Left ?? 07/29/2022 00:10??by Stormy Figueroa MD ?IMPRESSION: ?? No evidence of deep venous thrombosis. ?US Doppler Ext Lower Venous Right ?? 07/29/2022 15:55??by Robert Gongora MD ?IMPRESSION: ?? No evidence of deep venous thrombosis. ? Case and plan discussed with attending physician Dr Kim ?? Elina Kenny MD Cigarette Inspector PGY-1 Pager [phone] ? 30??minutes spent on discharge * Judy LINCOLN, Lyudmila P: PERFORM Event Display: Discharge/Transfer Note Hospital Authored Date: [id number] Attending Attestation: I have seen and evaluated this patient on 08/03/22. I have discussed the caseand its management with the resident and agree with the findings and plan as documented in the resident???s note except where modified. ?? Lyudmila Kim MD MPH Internal Medicine/Pediatric Hospitalist Pager: [phone] ? * Jorge INGRAM, Sharita Harrell: PERFORM Event Display: Patient Education/Instruction Authored Date: Inpatient Adult Discharge Instructions [address] [address] Name: BROWN NIXON : 1985 Visit: 07/29/2022 08:02:00 Current Date: 08/03/2022 12:07 Account: [id number] Inpatient Adult Discharge Instructions We would like [...] and their families. Surveys are administered by [employer]. ?? If further treatment with your primary care physician or another doctor is recommended, it is important for you to keep the appointment. Call your primary care physician or return to the Emergency Department immediately if your condition worsens, fails to improve, or new symptoms develop. If you need to find a doctor, you can call [facility] for a referral at [phone] or toll free at [phone]) or log in to [email or web address].. ?? You can view and manage your care through the patient portal or by using a health care ankita of your choosing. [employer] is a website that allows you to securely view your medical information including your hospital discharge summary, office visit summaries, medications and follow-up visits. You can also request appointments, renew medications, and request access to your medical information using a health care ankita of your choosing, or just ask a question. You can enroll at [email or web address] or register during your next office visit. You have been discharged from [facility], Patient Care Unit: S3. If you have any questions regarding these instructions after you leave, please call us and we will be happy to assist you. [facility] Your Care Team Attending Physician Lyudmila Kim MD Reason for Your Visit Leg pain-swelling Your Diagnosis Anemia Cellulitis of leg Cocaine use disorder, severe, dependence Fever Intravenous drug abuse, continuous Left leg pain Leg pain-swelling Marijuana use, continuous Nicotine dependence Seizure disorder Severe opioid use disorder Tests Performed Below is a partial list of the tests performed during your hospitalization. You may have had other tests and procedures not included in this list. Please discuss all test results with your provider. B Type Natriuretic Peptide Basic Metabolic Panel BUN C-REACTIVE PROTEIN Calcium Level CBC CBC w/ Differential Comprehensive Metabolic Panel COVID-19 RNA POC Creatinine Electrolytes FERRITIN FOLIC ACID Glucose Level HOLD BLUE TUBE HOLD GREEN TUBE HOLD LAVENDER TUBE IRON & TIBC Lactate Level LFT's Magnesium Level Phosphorus Level SEDIMENTATION RATE,AUTOMATED SOURCE EXPOSURE PROFILE TRANSFERRIN VITAMIN B12 CT Ext Lower W/ Contrast Left CT Ext Lower W/ Contrast Right Doppler Ext Lower Venous Right (US) US Doppler Ext Lower Venous Left XR Femur 2 Views Left Primary Care Provider Ning Faye Advance Directive . Discharge Vitals Temperature: 98.2 DegF Height: 166 cm Pulse Rate:??53 bpm??Low Weight: 84 kg Respiratory Rate: 18 br/min Body Mass Index:??30.48 kg/m2??Critical Systolic Blood Pressure: 122 mm Hg Body surface area: 1.97 Diastolic Blood Pressure: 73 mm Hg ?? Oxygen Saturation: 98 % ?? Studies Pending All tests and labs ordered during this hospital stay have been completed unless listed below. Please discuss all pending results with your provider listed above in these instructions. ?? Add On Lab Order Blood Culture Blood Culture #2 Hepatitis C RNA PCR Quant (HCV RNA QUANTIFICATION) What to do next Instructions From Your Doctor Discharge Orders Scheduled Follow-Up Appointments Wednesday. 2022 3:30 PM EDT ?? With: Ning Faye Where: [place] [address]- You Need to Schedule the Following Appointments Follow Up with??Ning Faye When??Within 1 week: call to discuss follow up visit Where: ?? Discharge Medications BROWN NIXON :1985 Visit Date:07/29/2022 Medications: Please continue your medications until treatment is completed or stopped by your provider. Medications not listed below should be discontinued. Discuss any questions related to medications with your provider. What How Much When Instructions Next Dose New Cephalexin (cephalexin monohydrate 500 mg oral capsule) 1 capsule Oral 4 [facility] next dose due 08/03 at 1pm Changed Gabapentin (gabapentin 300 mg oral capsule) 1 capsule Oral Twice a day next dose due 08/03 at 9pm Changed Methadone 50 Milligram Oral Daily next dose due 08/04 am at clinic Unchanged Divalproex Sodium (divalproex sodium 250 mg oral enteric coated tablet) 3 tab(s) Oral Twice a day PLEASE DISPENSE TONIGHT, PATIENT HAS RAN OUT OF MEDS. for seizures label in beninese ?? next dose due 08/03 at 9pm Unchanged Ibuprofen (ibuprofen 800 mg oral tablet) TAKE 1 TABLET BY MOUTH 3 TIMES A DAY NEEDED FOR PAIN ?? take as directed Pharmacy Information [facility] 3: [address] [place], [place] [id number] [phone] ?? What How Much When Comments Stop Taking Clotrimazole Topical (clotrimazole 1% topical cream) 1 ankita Topically Twice a day for rash on face ?? Stop Taking Hydrocortisone Topical (hydrocortisone 1% topical cream) 1 ankita Topically Twice a day for rash on face apply in a thin film to the affected skin and rub in gently and completely ?? Stop Taking Nabumetone (nabumetone 750 mg oral tablet) 1 tab(s) Oral Twice a day as needed for Pain , Moderate with food ?? Test Results Below is a partial list of the most recent Laboratory test results done prior to this discharge. You may have had other tests and procedures not included in this list. Please discuss all test resultswith your provider. B Type Natriuretic Peptide (07/28/2022) ???Nt-Probnp - 92 pg/mL Basic Metabolic Panel (08/02/2022) ???Sodium - 142 mmol/L???Potassium - 4.4 mmol/L???Chloride - 105 mmol/L???Bicarbonate Level - 28 mmol/L???Anion Gap - 9???Glucose Level - 91 mg/dL???BUN - 9 mg/dL???Creatinine-Blood - 0.6 mg/dL???Estimated GFR Creatinine - 127 ML/MIN/1.73 M2???Calcium - 8.5 mg/dL BUN (07/31/2022) ???BUN - 6 mg/dL C-REACTIVE PROTEIN (07/28/2022) ???C-Reactive Protein - 10.7 mg/dL Calcium Level (07/30/2022) ???Calcium - 7.6 mg/dL CBC (08/02/2022) ???WBC - 3.4 k/mm3???RBC - 4.21 m/mm3???Hgb - 11.0 Gm/dL???Hct - 34.7 %???MCV - 82.4 femtoliters???MCH - 26.1 pg???MCHC - 31.7 g/dL???Platelet Count - 231 k/mm3???RDW-SD - 41.2 femtoliters???MPV - 10.6 femtoliters???Nucleated RBC (Automated) - 0.0 #/100 WBC'S???Abs. NRBC - 0.0 k/mm3 CBC w/ Differential (07/29/2022) ???WBC - 5.8 k/mm3???RBC - 3.93 m/mm3???Hgb - 10.3 Gm/dL???Hct - 31.4 %???MCV - 79.9 femtoliters???MCH - 26.2 pg???MCHC - 32.8 g/dL???Platelet Count - 171 k/mm3???RDW-SD - 37.7 femtoliters???MPV - 11.1 femtoliters???Nucleated RBC (Automated) - 0.0 #/100 WBC'S???Abs. NRBC - 0.0 k/mm3???Abs. Neut - 3.9 k/mm3???Abs. Lymph - 1.0 k/mm3???Abs. Centre - 0.8 k/mm3???Abs. Eo - 0.1 k/mm3???Abs. Baso - 0.0 k/mm3???Neut % - 67.4 %???Lymph % - 17.5 %???Centre % - 13.3 %???Eos % - 1.0 %???Baso % - 0.5 %???Imm Gran - 0.3 %???Abs. Imm Gran - 0.0 k/mm3 Comprehensive Metabolic Panel (07/28/2022) ???Sodium - 136 mmol/L???Potassium - 3.6 mmol/L???Chloride - 97 mmol/L???Bicarbonate Level - 26 mmol/L???Anion Gap - 13???Glucose Level - 85 mg/dL???BUN - 15 mg/dL???Creatinine-Blood - 0.8 mg/dL???Estimated GFR Creatinine - 119 ML/MIN/1.73 M2???Calcium - 8.6 mg/dL???Protein, Total - 6.7 Gm/dL???Albu min - 3.5 Gm/dL???AG Ratio - 1.1???Alkaline Phosphatase - 173 units/L???AST (SGOT) - 66 units/L???ALT (SGPT) - 51 units/L???Bilirubin, Total - 0.4 mg/dL COVID-19 RNA POC (07/29/2022) ???COVID-19 POC Result - NEGATIVE Creatinine (07/31/2022) ???Creatinine-Blood - 0.6 mg/dL???Estimated GFR Creatinine - 127 ML/MIN/1.73 M2 Electrolytes (07/31/2022) ???Sodium - 143 mmol/L???Potassium - 3.6 mmol/L???Chloride - 105 mmol/L???Bicarbonate Level - 30 mmol/L???Anion Gap - 8 FERRITIN (07/28/2022) ???Ferritin Level - 436 ng/mL FOLIC ACID (07/28/2022) ???Folic Acid Level - HEMOLYZED Glucose Level (07/30/2022) ???Glucose Level - 93 mg/dL HOLD BLUE TUBE (07/30/2022) ???Hold Blue Top - SPECIMEN DISCARDED AFTER 4 HOURS. HOLD GREEN TUBE (07/30/2022) ???Hold Green Top - SPECIMEN DISCARDED AFTER 1 WEEK HOLD LAVENDER TUBE (07/29/2022) ???Hold Lavender Top - SPECIMEN DISCARDED AFTER 24 HOURS. IRON & TIBC (07/28/2022) ???Iron Level - 25 mcg/dL???Iron Binding Capacity, Unsaturated - 231 mcg/dL???Iron Binding Capacity, Estimated Total - 256 mcg/dL???% Iron Saturation - 10 % Lactate Level (07/29/2022) ???Lactate - 0.9 mmol/L LFT's (07/30/2022) ???Protein, Total - 5.5 Gm/dL???Albumin - 3.0 Gm/dL???Alkaline Phosphatase - 148 units/L???AST (SGOT) - 35 units/L? ?ALT (SGPT) - 30 units/L? ?Bilirubin, Total - 0.2 mg/dL? ?Bilirubin, Direct - <0.2 mg/dL???Bilirubin, Indirect - Direct bilirubin is less than the measureable limit. Therefore, indirect Magnesium Level (07/31/2022) ???Magnesium - 2.6 mg/dL Phosphorus Level (07/31/2022) ???Phosphorus - 3.5 mg/dL SEDIMENTATION RATE,AUTOMATED (07/29/2022) ???Sed Rate - 63 mm/hr SOURCE EXPOSURE PROFILE (07/30/2022) ???Hepatitis B Surface Antigen - NEGATIVE???Hepatitis C Ab - Reactive by screening EIA.???HIV 4th Generation Ab-Ag Result - NEGATIVE TRANSFERRIN (07/28/2022) ???Transferrin - 203 mg/dL VITAMIN B12 (07/28/2022) ???Vitamin B12 Level - 894 pg/mL Allergies (NKA means No Known Allergies) NKA Problems Active Problems??(8) *[phone] Senior?? Cigarette smoker?? History of hepatitis C?? History of substance abuse?? Hyperlipidemia?? Obese class I?? Seizure?? Seizure disorder?? Education Materials Below is the list of Educational Leaflet Providered with your Discharge Instructions. Discharge Instructions for Cellulitis?? Cephalexin Oral Tablet?? Valuables and Belongings I fully understand and agree that [facility] accepts no responsibility for all my [...] patient Date for Pt to Sign Valuables/Belongings: 08/03/22 10:53:00 ?? Other Discharge Information ? Case Management Discharge Plan?? Discharge Plan?? Discharge Level of Care at Discharge: Home/Fci/Foster Care ?? Pulmonary Rehab Status?? Pulmonary Rehab Discharge Status?? Respiratory Rate: 18 br/min ? Common Emergency Awareness Tips IS [...] are strongly encouraged to quit. Please call [facility] at [phone] or [phone] ([phone]) or log in to [email or web address] for referrals to smoking cessation programs. ?? 816 Suicide & Crisis Lifeline is available 09/11 if you or someone you know needs to find a reason to keep living. By calling 500 you'll be connected to a skilled, trained counselor at a crisis center in your area. INPATIENT DISCHARGE INSTRUCTIONS SIGNATURE BROWN FOWLER Location:[facility] Registration Date and Time:07/29/2022 08:02 EDT Primary Care Physician: Ning Faye, BROWN BARKER, have received the above patient education materials/instructions and have verbalized understanding. If ambulance or transport services are being used I further acknowledge being given a choice of service. ?? If you need to contact me, please call me at this number: . Patient/Shook Machine Operator Name: Patient/Shook Machine Operator Signature: Relationship to Patient: Witness Name/Signature: Date: * Elina Kenny MD: PERFORM Event Display: Patient Education Leaflets Authored Date: [id number] Discharge Instructions for Cellulitis ?? [id number] Discharge Instructions for Cellulitis You have been diagnosed with cellulitis. This is an infection in the deepest layers of the skin. The infection may even spread to the muscle in some cases. Cellulitis is caused by bacteria. The bacteria can??enter the body through broken skin. This can happen with a cut, scratch, animal bite, or aninsect bite that has been scratched. You may have been treated in the hospital with antibiotics andfluids. You will likely be given a prescription for antibiotics to take at home. This sheet will help you take care of yourself at home. Home care When you are home: ??? Take the prescribed antibiotic medicine you are given as directed until it is gone. Take it even if you feel better. It treats the infection and stops it from returning. Not taking all the medicine can make future infections hard to treat. ??? Keep the infected area clean. Follow all wound careinstructions from your healthcare provider. ??? When possible, raise the infected area above the level of your heart. This helps keep swelling down. ??? Quique the boundary of the infected area so you can tell if it is growing. ??? Talk with your healthcare provider if you are in pain. Ask what kind of zxtc-peo-tmnmpwm medicine you can take for pain. ??? Apply clean bandages as advised. Dispose of dirty bandages in a plastic bag that is tied at the top. ??? Wash your hands often to prevent spreading the infection. Always wash your hands before and after cleaning the area. If anyone helps you with your care, have them do the same. ??? Take your temperature once a day for a week. In the future, wash your hands before and after you touch cuts, scratches, or bandages. This will help prevent infection.? When to call your healthcare provider Call your healthcare provider right away if you have any of the following: ??? The infection does not get better within 1 to 2 days after treatment starts ??? Trouble or pain when moving the joints above or below the infected area ??? Discharge or pus draining from the area ??? Fever??of??100.4??F (38??C) or higher, or as directed by your healthcare provider ??? Pain that gets worse in or around the infected? Redness that gets worse in or around the infected area,??particularly if the areaof redness expands to a wider area ??? Shaking chills ??? Swelling of the infected area ??? Vomiting ?? Last Reviewed Date: 2021 ?? [employer]. All rights reserved. This information is not intended as a substitute for professional medical care. Always follow your healthcare professional's instructions. ?? * Elina Kenny MD: PERFORM Event Display: Patient Education Leaflets Authored Date: [id number] Cephalexin Oral Tablet ?? 9899-11 Cephalexin Oral Tablet Uses For treating bacterial infection. ?? Instructions This medicine may be taken with or without food. Keep the medicine at room temperature. Avoid heat and direct light. If you forget to take a dose on time, take it as soon as you remember. If it is almost time for thenext dose, do not take the missed dose. Return to your normal schedule. Do not take 2 doses at one time. Tell your doctor and pharmacist about all your medicines. Include prescription and dnwa-uft-dmjzwvgyyogkhbzv, vitamins, and herbal medicines. Keep using this medicine for the full number of days that it is prescribed. Do not stop the medicine even if you start to feel better. If you have diabetes and use urine glucose tests, this medicine may cause incorrect results. Pleasecheck with your doctor before making any changes to your diabetes treatment plan. ?? Cautions Tell your doctor and pharmacist if you ever had an allergic reaction to a medicine. Do not use the medication any more than instructed. Please tell your doctor if you have moderate to severe diarrhea while on this medicine. Do not treat the diarrhea with kjva-ecy-cerlcic diarrhea medicine. Tell the doctor or pharmacist if you are , planning to be , or . Do not start or stop any other medicines without first speaking to your doctor or pharmacist. Do not share this medicine with anyone who has not been prescribed this medicine. ?? Side Effects The following is a list of some common side effects from this medicine. Please speak with your doctor about what you should do if you experience these or other side effects. ??? diarrhea ??? nausea and vomiting ??? stomach upset or abdominal pain ??? yeast infection of mouth ??? vaginal itching or yeast infection Call your doctor or get medical help right away if you notice any of these more serious side effects: ??? severe, watery or bloody diarrhea A few people may have an allergic reaction to this medicine. Symptoms can include difficulty breathing, skin rash, itching, swelling, or severe dizziness. If you notice any of these symptoms, seek medical help quickly. ?? Extra Please speak with your doctor, nurse, or pharmacist if you have any questions about this medicine. ?? [email or web address] IMPORTANT NOTE: This document tells you briefly how to take your medicine, but it does not tell youall there is to know about it. Your doctor or pharmacist may give you other documents about your medicine. Please talk to them if you have any questions. Always follow their advice. There is a more complete description of this medicine available in Maltese. Scan this code on your smartphone or tablet or use the web address below. You can also ask your pharmacist for a printout. If you have any questions, please ask your pharmacist. The display and use of this drug information is subject to Terms of Use. Copyright(c) 2022 [employer]. ?? [employer]. All rights reserved. This information is not intended as a substitute for professional medical care. Always follow your healthcare professional's instructions. ?? * JULIETA Erwin S: Jacob Curry MD: SIGN Stormy Figueroa MD: VERIFY Event Display: Result: Authored Date: [id number] US Doppler Ext Lower Venous Left INDICATION: Left lower extremity pain, concern for thrombus. COMPARISON: 02/07/2021. IMAGING TECHNIQUE: Ultrasound of the veins from the groin through the calf was performed using grayscale, color, and spectral Doppler ultrasound assessing for complete compressibility and normal flowcharacteristics. FINDINGS: Common femoral vein: Patent. No thrombosis. Femoral vein: Patent. No thrombosis. Popliteal vein: Patent. No thrombosis. Gastrocnemius veins: The visualized portions are patent without evidence of thrombosis. Peroneal veins: The visualized portions are patent without evidence of thrombosis. Posterior tibial veins: The visualized portions are patent without evidence of thrombosis. Contralateral common femoral vein: Patent. No thrombosis. OTHER FINDINGS: There is diffuse calf edema. IMPRESSION: No evidence of deep venous thrombosis. I have personally reviewed the images and I agree with this report. WSN: [id number] Ordering Physician: Sachni Fishman MD Dictated By: Jacob Schneider MD Dictated Date/Time: 07/29/22 7:07 am Reviewed By: Stormy Figueroa MD Signed By: Stormy Figueroa MD Signed Date/Time: 07/29/22 7:12 am Transcribed By: CRISS Transcribed Date/Time: 07/29/22 0:43 am * JULIETA Erwin S: Robert Mills MD: VERIFY Event Display: Result: Authored Date: [id number] US Doppler Ext Lower Venous Right Reason: Pain Tenderness Extremities; pain, swelling, tenderness on RLE; Clinical Question(s): Thrombus COMPARISON: Doppler ultrasound of bilateral lower extremity 02/07/2021 IMAGING TECHNIQUE: Ultrasound of the veins from the groin through the calf was performed using grayscale, color, and spectral Doppler ultrasound assessing for complete compressibility and normal flowcharacteristics. FINDINGS: Common femoral vein: Patent. No thrombosis. Femoral vein: Patent. No thrombosis. Popliteal vein: Patent. No thrombosis. Gastrocnemius veins: The visualized portions are patent without evidence of thrombosis. Peroneal veins: The visualized portions are patent without evidence of thrombosis. Posterior tibial veins: The visualized portions are patent without evidence of thrombosis. Contralateral common femoral vein: Patent. No thrombosis. OTHER FINDINGS: IMPRESSION: No evidence of deep venous thrombosis. WSN: [id number] Ordering Physician: Jamil Emery Dictated By: Robert Gongora MD Dictated Date/Time: 07/29/22 4:00 pm Reviewed By: Robert Gongora MD Signed By: Robert Gongora MD Signed Date/Time: 07/29/22 4:00 pm Transcribed By: CRISS Transcribed Date/Time: 07/29/22 3:[address] Lower extremity - right W contrast IV * [facility] , CIS S: TRANSCRIBE Cris Pan DO: SIGN Pete Crystal Jr, MD P: VERIFY Event Display: Result: Authored Date: [id number] CT Ext Lower W/ Contrast Left, CT Ext Lower W/ Contrast Right Reason: Pain; pain, fever and swelling. eval for soft tissue infection or osteomyelitis; Clinical Question(s): Tib Fib; Order Comment: TECHNIQUE: Helical CT with contrast formatted in 3 planes. 100 cc of Omnipaque 300 was administeredintravenously. Weight-based protocol using automatic tube modulation was used to optimize exposure parameters. CTDIvol Body: 23.80 mGy, DLP Body: 1167 mGy*cm. COMPARISONS: None FINDINGS: RIGHT: Bones and joints: No fracture or dislocation is present. No erosions, productive changes or abnormal calcifications are noted. Soft Tissues: No evidence of peripherally enhancing subcutaneous or intramuscular abscess collection. Nonspecific subcutaneous fat stranding. LEFT: Bones and joints: No evidence of fracture or dislocation. No evidence of cortical erosion or productive changes. Mild asymmetric osteopenia of the distal femur likely indicative of disuse. Soft Tissues: No evidence of peripherally enhancing subcutaneous or intramuscular abscess collection. Nonspecific subcutaneous fat stranding. IMPRESSION: No evidence of aggressive osteolysis or peripherally enhancing soft tissue collection within eitherleg. Subcutaneous fat stranding and skin thickening greater on the left than right which may represent edema or cellulitis. I have personally reviewed the images and I agree with this report. WSN: [id number] Ordering Physician: Jamil Emery Dictated By: Cris Pan DO Dictated Date/Time: 07/29/22 4:56 pm Reviewed By: Pete Crystal Jr, MD Signed By: Pete Crystal Jr, MD Signed Date/Time: 07/29/22 5:01 pm Transcribed By: CRISS Transcribed Date/Time: 07/29/22 4:[address] Lower extremity - left W contrast IV * [facility] , CIS S: TRANSCRIBE Cris Pan DO: SIGN Pete Crystal Jr, MD P: VERIFY Event Display: Result: Authored Date: [id number] CT Ext Lower W/ Contrast Left, CT Ext Lower W/ Contrast Right Reason: Pain; pain, fever and swelling. eval for soft tissue infection or osteomyelitis; Clinical Question(s): Tib Fib; Order Comment: TECHNIQUE: Helical CT with contrast formatted in 3 planes. 100 cc of Omnipaque 300 was administeredintravenously. Weight-based protocol using automatic tube modulation was used to optimize exposure parameters. CTDIvol Body: 23.80 mGy, DLP Body: 1167 mGy*cm. COMPARISONS: None FINDINGS: RIGHT: Bones and joints: No fracture or dislocation is present. No erosions, productive changes or abnormal calcifications are noted. Soft Tissues: No evidence of peripherally enhancing subcutaneous or intramuscular abscess collection. Nonspecific subcutaneous fat stranding. LEFT: Bones and joints: No evidence of fracture or dislocation. No evidence of cortical erosion or productive changes. Mild asymmetric osteopenia of the distal femur likely indicative of disuse. Soft Tissues: No evidence of peripherally enhancing subcutaneous or intramuscular abscess collection. Nonspecific subcutaneous fat stranding. IMPRESSION: No evidence of aggressive osteolysis or peripherally enhancing soft tissue collection within eitherleg. Subcutaneous fat stranding and skin thickening greater on the left than right which may represent edema or cellulitis. I have personally reviewed the images and I agree with this report. 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 Pt reports he had a seizureyesterday and re-injured his leg. Reports has not picked up his Depakote refill; Reason: Trauma; s p femur romelia, fall with pain over lateral distal femur; Clinical Question(s): Fracture COMPARISON: 07/18/2022 FINDINGS: No acute fracture or dislocation. Intramedullary romelia with proximal and distal locking screws as well as extensive bone graft material throughout the femoral diaphysis, unchanged in appearance. Normalalignment of the hip and knee. No knee effusion. IMPRESSION: No significant change from 07/18/2022. WSN: [id number] Ordering Physician: Rolly Concepcion Dictated By: Nino Al MD Dictated Date/Time: 07/29/22 8:59 am Reviewed By: Nino Al MD Signed By: Nino Al MD Signed Date/Time: 07/29/22 8:59 am Transcribed By: CRISS Transcribed Date/Time: 07/29/22 8:57 am Patient Care team information Care Team Personnel Name: Wandy Bailey RN Position: [facility] RN Member Role: Primary Care Nurse Name: Alvarez Sol RN Position: S RN Member Role: Primary Care Nurse Name: Esau Hilton RN Position: S RN Member Role: Primary Care Nurse Name: Shania Corrales RN Position: [facility] RN Member Role: Primary Care Nurse Name: Natalia Hanks RN Position: [facility] RN Member Role: Primary Care Nurse Name: Paula Nichols RN Position: [facility] RN Member Role: Primary Care Nurse Name: Stormy Blake RN Position: [facility] RN Member Role: Primary Care Nurse Name: Ning Faye Position: [facility] PCO Associate Professional Member Role: PCP Address: Address: [address] [place] [id number] Name: Maria D Pinto RN Position: [facility] RN Member Role: Primary Care Nurse Name: Kayla Heard RN Position: [facility] RN Member Role: Primary Care Nurse Name: Amelia Cook RN Position: [facility] RN Member Role: Primary Care Nurse Name: Sascha Alvarado RN Position: [facility] RN Member Role: Primary Care Nurse Name: Anil RODRIGUEZ Attending Position: [facility] ED Medicine MD Name: Lily Win RN Position: [facility] ED RN W/OE and Tasks Member Role: Patient Care Provider Name: Cheyanne De La Cruz RN Position: [facility] ED RN W/OE and Tasks Member Role: Patient Care Provider Name: Breanna Jarvis Position: [facility] ED TA [facility] Care Team Related Persons Name: IGNACIO CHAPMAN Address: [address] [address] Name: WINNIE NIXON Address: [place] [address] Name: LAUREL HERRON Name: SENA CORONA Address: home [address] [place] [id number] Name: SENA MEDEROS Address: home [address] [place] [address]
--- OUTSIDE RECORDS SUMMARY | 2022-08-18 12:47 | XMS_ITS | Continuity of Care Document ---
Author Name Unknown Organization [facility] Address Unknown Care Team Providers Care Postdoctoral Research Associate Name Role Phone Passer Ning FRENCH Primary Care Physician [place] [facility] [place] 07/23/21 - 10/09/21 [facility] Attending Physician: Not on Staff, Attending MD Allergies, Adverse Reactions, Alerts No Known Allergies Immunizations Given and Recorded Vaccine Date Status Refusal Reason SARS-CoV-2 (COVID-19) Ad26 vaccine 09/09/20 Record ed tetanus/diphtheria/pertussis, acel(Tdap) 02/10/20 Given tetanus/diphtheria/pertussis, acel(Tdap) 06/07/17 Given tetanus/diphtheria/pertussis, acel(Tdap) 09/08/12 Recorded tetanus/diphtheria/pertussis, acel(Tdap) 08/30/11 Given influenza virus vaccine, inactivated 01/25/18 Give n influenza virus vaccine, inactivated 02/18/17 Give n Medications cyclobenzaprine 10 mg oral tablet 10 mg, 1, tablet, By Mouth, 3 times a day, for muscle pain label in martiniquais, # 90 tablet, Refills 3, Tot. Refills 3, Maintenance, 07/30/21 17:51:00 EDT, Route to Pharmacy Electronically, [facility]-, Partial fill upon patient... Start Date: 07/30/21 Status: Ordered divalproex sodium 250 mg oral enteric coated tablet 3 tablet = 750 mg, By Mouth, 2 times a day, for seizures label in martiniquais, # 180 tablet, 6 Refills,Maintenance, 07/30/21 17:50:00 EDT, Tablet, [facility]-, Partial fill upon patient request if the prescription is for a schedu... Start Date: 07/30/21 Status: Ordered ibuprofen 800 mg oral tablet 800 mg, 1, tablet, By Mouth, 3 times a day, for leg pain with food or milk label in martiniquais, # 90 tablet, Refills 1, Tot. Refills 1, Maintenance, 06/13/21 13:35:00 EST, Route to Pharmacy Electronically, [facility] , Partial f... Start Date: 06/13/21 Status: Ordered Problem List Condition Effective Dates Status Health Status Inform ant Cigarette smoker(Confirmed) Active History of hepatitis C(Confirmed) Active History of substance abuse(Confirmed) Active Hyperlipidemia(Confirmed) Active Obese class I(Confirmed) Active *[id number]-Sita Senior(Confirmed) Active Seizure(Confirmed) Active Social History Social History Type Response Smoking Status 10 or more cigarette s (1/2 pack or more)/day in last 30 days entered on: 07/30/21 Sex
--- OUTSIDE RECORDS SUMMARY | 2022-08-18 12:47 | XMS_ITS | Continuity of Care Document ---
Author Name Unknown Organization [facility] Address [address], [address], [address] [place] [id number]- Care Team Providers Care Appliance Service Supervisor Name Role Phone Passer Ning FRENCH Primary Care Physician Encounter [facility] [place] Date(s): 03/18/20 - 06/12/20 [facility] [address], [address], [address] [place] [id number] Attending Physician: Terrance LINCOLN, Kiran Norman Admitting Physician: Kiran Carlos MD Referring Physician: Joseph Hale MD Allergies, Adverse Reactions, Alerts Substance Reaction [...] 12/20/19 15:30:00 EDT, Route to Pharmacy Electronically, [facility] - [place], [place] - [id number], 165.1, cm, 12/20/19 15:04:00 EDT,... Start Date: 12/20/19 Status: Ordered divalproex sodium 250 mg oral enteric coated tablet 3 tablet, By Mouth, 2 times a day, For seizures., # 180 tablet, 6 Refills, Maintenance, 12/20/19 15:28:00 EDT, [facility] - [place], [place] - [id number], 165.1, cm, 12/20/19 15:04:00 EDT, Height, 68.1, kg, 07/25/19 20:48:00 EDT, Dry Weight Start Date: 12/20/19 Status: Ordered ferrous fumarate 325 mg oral tablet 1 tablet = 325 mg, By Mouth, Daily, # 30 tablet, 1 Refills, Maintenance, 01/17/20 11:57:00 EDT, Tablet, [facility], 166, cm, 01/15/20 13:05:00 EDT, Height, 64.6, kg, 01/09/20 12:58:00 EDT, Dry Weight Start Date: 01/17/20 Status: Ordered folic acid 1 mg oral tablet 1 mg, 1, tablet, By Mouth, Daily, # 30 tablet, Refills 0, Tot. Refills 0, Maintenance, 01/15/20 14:50:00 EDT, Route to Pharmacy Electronically, [facility], 166, cm, 01/15/20 13:05:00 EDT, Height, 64.6, kg, 01/09/20 12:58:00 EDT, Dry Weight Start Date: 01/15/20 Status: Ordered methadone 5 mg/5 mL oral solution By Mouth, Daily, 0 Refills, Maintenance, 01/15/20 14:51:00 EDT, Solution, Partial fill upon patientrequest Start Date: 01/15/20 Status: Ordered multivitamin with minerals Antioxidant Multiple Vitamins and Minerals oral capsule 1 capsule, By Mouth, Daily, # 30 capsule, 0 Refills, Maintenance, 01/15/20 14:50:00 EDT, Capsule, [facility], 1 capsule By Mouth Daily,x30 days, 166, cm, 01/15/20 13:05:00 EDT, Height, 64.6, kg, 01/09/20 12:58:00 EDT, Dry Weight Start Date: 01/15/20 Stop Date: 02/14/20 Status: Ordered nabumetone 750 mg oral tablet 1 tablet = 750 mg, By Mouth, 2 times a day, for back pain with food, # 60 tablet, 2 Refills, Maintenance, 12/20/19 15:30:00 EDT, Tablet, [facility] - [place], [place] - [id number], 165.1, cm, 12/20/19 15:04:00 EDT, Height, 68.1, kg, 07/25/19 20:4... Start Date: 12/20/19 Status: Ordered nicotine 14 mg/24 hr transdermal film, extended release 1 patch, Topically, Daily, to quit smoking, # 30 patch, 1 Refills, Maintenance, 01/17/20 11:57:00 EDT, Patch, [facility], 1 patch Topically Daily,Instr:to quit smoking, [...] History Social History Type Response Smoking Status Former smoker, quit more than 30 days ago; Other: Quit in 02/2020- currently in program; entered on: 03/22/20 Sex
--- OUTSIDE RECORDS SUMMARY | 2022-08-18 12:47 | XMS_ITS | Continuity of Care Document ---
Author Name Unknown Organization [facility] Address [address] [place] [address]- Care Team Providers Care Hazmat Truck Driver Name Role Phone Passer Ning FRENCH Primary Care Physician [place] [facility] [place] - 07/06/[address] [address]- Discharge Disposition: Transfer to Psych Facility Attending Physician: Sara LINCOLN, Admitting Physician: Sara LINCOLN, Referring Physician: Not on Staff, Referring MD Allergies, Adverse Reactions, Alerts No Known Allergies Immunizations Given and Recorded Vaccine Date Status Refusal Reason SARS-CoV-2 (COVID-19) Ad26 vaccine 09/09/20 Record ed tetanus/diphtheria/pertussis, acel(Tdap) 02/10/20 Given tetanus/diphtheria/pertussis, acel(Tdap) 06/07/17 Given tetanus/diphtheria/pertussis, acel(Tdap) 09/08/12 Recorded tetanus/diphtheria/pertussis, acel(Tdap) 08/30/11 Given influenza virus vaccine, inactivated 01/25/18 Give n influenza virus vaccine, inactivated 02/18/17 Give n Medications divalproex sodium 250 mg oral enteric coated tablet 3 tablet = 750 mg, By Mouth, 2 times a day, PLEASE DISPENSE TONIGHT, PATIENT HAS RAN OUT OF MEDS. for seizures label in turkmen, # 180 tablet, 6 Refills, Maintenance, 03/27/22 12:05:00 EST, Tablet, [id number], Partial fill upon patient reques... Start Date: 03/27/22 Status: Ordered gabapentin 600 mg oral tablet 1 tablet = 600 mg, By Mouth, Daily at bedtime, for chronic leg pain, # 30 tablet, 2 Refills, Maintenance, 05/14/22 8:55:00 EST, Tablet, [id number], Partial fill upon patient request if the prescription is for a schedule II opioid drug., 165, c... Start Date: 05/14/22 Status: Ordered MorPHINE Inj 4 mg, Injection, IV Push Slowly, Every 15 minutes for 3 doses/times, PRN for Pain , Moderate, and SBP greater than 100, Routine, 07/06/22 11:45:00 EDT, Stop date Limited # of times Start Date: 07/06/22 Status: Ordered Problem List Condition Confirmation Course Effective Dates Status H ealth Status Informant Cigarette smoker Confirmed Active History of hepatitis C Confirmed Active History of substance abuse Confirmed Active Hyperlipidemia Confirmed Active *[id number]-Gin sylvia Senior Confirmed Active Seizure Confirmed Active Results Radiology Reports * Exam Date Time Procedure Performing Provider Status 07/06/22 11:39 AM Wrist Comp Min 3 Views Left En Stephenson; Joseph (Verified) Notes: (Wrist Comp Min 3 Views Left) Reason For Exam: Pain RESULT: Wrist Comp Min 3 Views Left Examination: Left wrist performed on 07/06/2022. History: Hx of Present Illness: pt states he relapsed on drugs, admits to shooting up cocaine and heroin around 12:30pm tonight, states he left his seizure meds @ a friends house on Wednesday and can't get them back, states he had a seizure on , also wants injection sites on L..; Reason: Pain; Clinical Question(s): Osteomyelitis Findings: Frontal, oblique, lateral, and scaphoid views of the left wrist are submitted. No fractures, dislocations, or erosions are seen. There is no bony destruction. The soft tissues are unremarkable. IMPRESSION: There is no radiographic evidence of osteomyelitis. WSN: [id number] Ordering Physician: Sixto Beltran Dictated By: Janel Jean Baptiste MD Dictated Date/Time: 07/06/22 11:48 a Reviewed By: Janel Jean Baptiste MD Signed By: Janel Jean Baptiste MD Signed Date/Time: 07/06/22 11:48 am Transcribed By: CRISS Transcribed Date/Time: 07/06/22 11:47 am * Exam Date Time Procedure Performing Provider Status 07/06/22 11:39 AM Humerus Min 2 Views Left Sachin , Tony karie; Auth (Verified) Notes: (Humerus Min 2 Views Left) Reason For Exam: Infection RESULT: Humerus Min 2 Views Left [...] No acute osseous abnormality is seen. WSN: [id number] Ordering Physician: Sixto Beltran Dictated By: Ryder Wilson MD, V Dictated Date/Time: 07/06/22 11:45 a Reviewed By: Ryder Wilson MD, V Signed By: Ryder Wilson MD, V Signed Date/Time: 07/06/22 11:45 am Transcribed By: CRISS Transcribed Date/Time: 07/06/22 11:43 am Vital Signs Most recent to oldest [Reference Range]: 1 2 3 Oxygen Saturation [94-100 %] 97 % (07/06/22 4:02 PM) 100 % (07/06/22 8:53 AM) 97 % (07/06/22 6:27 AM) Pulse Rate [55-90 bpm] 65 bpm (07/06/22 6:29 PM) 66 bpm (07/06/22 4:02 PM) 76 bpm (07/06/22 8:53 AM) Blood Pressure [90-138/55-84 mm Hg] 110/57mm Hg (07/06/22 6:29 PM) 110/57mm Hg (07/06/22 4:02 PM) 134/83mm Hg (07/06/22 8:53 AM) Respiratory Rate [16-30 br/min] 18 br/min (07/06/22 6:29 PM) 16 br/min (07/06/22 4:02 PM) 16 br/min (07/06/22 11:48 AM) Temperature [96.8-100.4 DegF] 97.2 DegF (07/06/22 8:53 AM) 98 DegF (07/06/22 6:27 AM) 98.2 DegF (07/06/22 3:04 AM) Mode of Delivery (Oxygen) Room air (07/06/22 6:29 PM) Room air (07/06/22 4:02 PM) Room air (07/06/22 8:53 AM) Blood pressure sites Arm, left (07/06/22 6:29 PM) Arm, left (07/06/22 4:02 PM) Arm, right (07/06/22 8:53 AM) Temperature Route Oral (07/06/22 8:53 AM) Oral (07/06/22 6:27 AM) Oral (07/06/22 3:04 AM) Social History Social History Type Response Smoking Status 10 or more cigarette s (1/2 pack or more)/day in last 30 days entered on: 07/30/21 Sex Hospital Progress note * Ángel Mckinney MD: PERFORM, SIGN, VERIFY Event Display: Progress Note Hospital Authored Date: Patient: BROWN GARZA Age: 36 years Sex: Male : 1985 Associated Diagnoses: None Author: Ángel Mckinney MD 36-year-old male with 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 Last use of IV drugs this morning. In the emergency department, the patient has been afebrile and hemodynamically stable. No evidence for compartment syndrome on exam. No criteria for sepsis but elevated inflammatory markers. Bedside ultrasound in the emergency department does not show drainable collection. X-rays of the left humerus and left wrist do not show evidence for osteomyelitis, with chronic retained needle fragments in the soft tissues of the left elbow. A/P: 1. Left antecubital fossa purulent cellulitis 2. 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 Further management will be per the hospital medicine team there. Physical Examination Vital Signs Vitals : VITALS 07/06/2022 11:48 EDT Respiratory Rate 16 br/min Pain Intensity 7 Pain Intensity 7 Pain Intensity 7 07/06/2022 8:53 EDT Temperature 97.2 DegF Temperature Route Oral Pulse Rate 76 bpm Systolic Blood Pressure 134 mm Hg Diastolic Blood Pressure 83 mm Hg Blood pressure sites Arm, right Mean Arterial Pressure 100 mm Hg Pulse Pressure 51 mm Hg Oxygen Saturation 100 % Mode of Delivery (Oxygen) Room air 07/06/2022 6:27 EDT Temperature 98 DegF Temperature Route Oral Pulse Rate 81 bpm Systolic Blood Pressure 122 mm Hg Diastolic Blood Pressure 85 mm Hg H Mean Arterial Pressure 97 mm Hg Pulse Pressure 37 mm Hg Oxygen Saturation 97 % Mode of Delivery (Oxygen) Room air 07/06/2022 3:04 EDT Temperature 98.2 DegF Temperature Route Oral Pulse Rate 94 bpm H Respiratory Rate 18 br/min Systolic Blood Pressure 127 mm Hg Diastolic Blood Pressure 92 mm Hg H Blood pressure sites Arm, right Mean Arterial Pressure 104 mm Hg Pulse Pressure 35 mm Hg Oxygen Saturation 100 % Mode of Delivery (Oxygen) Room air . XR Humerus - left Views * BHSPowerscribe , CIS S: TRANSCRIBE Katie LINCOLN, Ryder V: VERIFY Event Display: Result: Authored Date: Humerus Min 2 Views Left, 2 views [...] No acute osseous abnormality is seen. WSN: [id number] Ordering Physician: Sixto Beltran Dictated By: Ryder Wilson MD, V Dictated Date/Time: 07/06/22 11:45 a Reviewed By: Ryder Wilson MD, V Signed By: Ryder Wilson MD, V Signed Date/Time: 07/06/22 11:45 am Transcribed By: CRISS Transcribed Date/Time: 07/06/22 11:43 am XR Wrist - left GE 3 Views * [facility]SPowerscribe , CIS S: TRANSCRIBE Janel Jean Baptiste MD: VERIFY Event Display: Result: Authored Date: Examination: Left wrist performed on 07/06/2022. History: Hx of Present Illness: pt states he relapsed on drugs, admits to shooting up cocaine and heroin around 12:30pm tonight, states he left his seizure meds @ a friends house on Wednesday and can't get them back, states he had a seizure on , also wants injection sites on L..; Reason: Pain; Clinical Question(s): Osteomyelitis Findings: Frontal, oblique, lateral, and scaphoid views of the left wrist are submitted. No fractures, dislocations, or erosions are seen. There is no bony destruction. The soft tissues are unremarkable. IMPRESSION: There is no radiographic evidence of osteomyelitis. WSN: [id number] Ordering Physician: Sixto Beltran Dictated By: Janel Jean Baptiste MD Dictated Date/Time: 07/06/22 11:48 a Reviewed By: Janel Jean Baptiste MD Signed By: Janel Jean Baptiste MD Signed Date/Time: 07/06/22 11:48 am Transcribed By: CRISS Transcribed Date/Time: 07/06/22 11:47 am Patient Care team information Care Team Personnel Name: Wandy Bailey RN Position: [facility] AMB Nurse Member Role: Primary Care Nurse Name: Alvarez Sol RN Position: [facility] RN Member Role: Primary Care Nurse Name: Natalia Hanks RN Position: [facility] RN Member Role: Primary Care Nurse Name: Paula Nichols RN Position: [facility] RN Member Role: Primary Care Nurse Name: Stormy Blake RN Position: [facility] RN Member Role: Primary Care Nurse Name: Ning Faye Position: [facility] PCO Associate Professional Member Role: PCP Address: Address: [address] [place] [address]- [place] Name: Maria D Pinto RN Position: [facility] RN Member Role: Primary Care Nurse Name: Sixto Kincaid Position: [facility] Associate Professional Member Role: ED Physician Critical Care Rn Address: Address: [address] [facility] [place] [address]- [place] Name: Sara LINCOLN, Position: [facility] ED Medicine MD Member Role: Admitting Physician Address: Address: [address] [facility] [place] [address]- [place] Name: Howard Jo Position: [facility] ED TA [facility] Care Team Related Persons Name: IGNACIO CHAPMAN Address: home [address] [place] [address] Name: SENA GARZA Address: [address] [place] [address] Name: WINNIE GARZA Address: [place] [address] Name: LAUREL HERRON Name: SENA CORONA Address: [address] [address]
--- OUTSIDE RECORDS SUMMARY | 2022-08-18 12:47 | XMS_ITS | Continuity of Care Document ---
Author Name Unknown Organization [facility] Address [address] [place] [address]- Care Team Providers Care Svp Monetization Name Role Phone Passer Ning FRENCH Primary Care Physician Encounter [facility] Date(s): 07/14/22 - 08/13/22 [facility] [address]- [place] Allergies, Adverse Reactions, Alerts No Known Allergies Immunizations Given and Recorded Vaccine Date Status Refusal Reason [id number] bivalent booster vax 04/23/22 Recorded SARS-CoV-2 (COVID-19) [...] OUT OF MEDS. for seizures label in kazakh, # 180 tablet, 6 Refills, Maintenance, 03/27/22 12:05:00 EST, Tablet, [id number], Partial fill upon patient reques... Start Date: 03/27/22 Status: Ordered gabapentin 300 mg oral capsule 300 mg, 1, capsule, By Mouth, 2 times a day, Refills 0, Maintenance, 07/29/22 14:41:00 EDT, Partialfill upon patient request if the prescription is for a schedule II opioid drug. Start Date: 07/29/22 Status: Ordered ibuprofen 800 mg oral tablet TAKE 1 TABLET BY MOUTH 3 TIMES A DAY NEEDED FOR PAIN Start Date: 07/29/22 Status: Ordered Methadone = 50 mg, By Mouth, Daily, 0 Refills, Maintenance, 08/03/22 10:56:00 EDT, Tablet, Partial fill upon patient request if the prescription is for a schedule II opioid drug. Start Date: 08/03/22 Status: Ordered Problem List Condition Confirmation Course Effective Dates Status H ealth Status Informant Cigarette smoker Confirmed Active History of hepatitis C Confirmed Active History of substance abuse Confirmed Active Hyperlipidemia Confirmed Active *[id number]-Gin sylvia Senior Confirmed Active Seizure Confirmed Active Social History Social History Type Response Smoking Status 10 or more cigarette s (1/2 pack or more)/day in last 30 days entered on: 07/30/21 Sex Patient Care team information Care Team Personnel Name: Wandy Bailey RN Position: [facility] SN RN Member Role: Primary Care Nurse Name: Alvarez Sol RN Position: [facility] RN Member Role: Primary Care Nurse Name: Esau Hilton RN Position: [facility] RN Member Role: Primary Care Nurse Name: Shania Corrales RN Position: [facility] RN Member Role: Primary Care Nurse Name: Natalia Hanks RN Position: [facility] RN Member Role: Primary Care Nurse Name: Paula Nichols RN Position: [facility] RN Member Role: Primary Care Nurse Name: Stormy Blake RN Position: [facility] RN Member Role: Primary Care Nurse Name: Ning Faye Position: [facility] PCO Associate Professional Member Role: PCP Address: Address: [address] [place] [address] Name: Maria D Pinto RN Position: S RN Member Role: Primary Care Nurse Name: Kayla Heard RN Position: [facility] RN Member Role: Primary Care Nurse Name: Amelia Cook RN Position: [facility] RN Member Role: Primary Care Nurse Name: Sascha Alvarado RN Position: [facility] RN Member Role: Primary Care Nurse Care Team Related Persons Name: IGNACIO CHAPMAN Address: [address] [address] Name: WINNIE GARZA Address: [place] [address] Name: LAUREL HERRON Name: SENA CORONA Address: [address] [address] Name: SENA MEDEROS Address: [address] [address]
--- OUTSIDE RECORDS SUMMARY | 2022-08-18 12:47 | XMS_ITS | Continuity of Care Document ---
Author Name Unknown Organization [facility] Address [address] [place] [address]- Care Team Providers Care Cost Recorder Name Role Phone Passer Ning FRENCH Primary Care Physician En[place] [facility] Date([place]): 12/06/19 - 01/05/20 [facility]/[address] [address]- [facility] Allergies, Adverse Reactions, Alerts Substance Reaction Severity Status NKA Active Immunizations Given and Recorded Vaccine Date Status Refusal Reason influenza virus vaccine, inactivated 01/25/18 Give n influenza virus vaccine, inactivated 02/18/17 Give n tetanus/diphtheria/pertussis, acel(Tdap) 06/07/17 Given tetanus/diphtheria/pertussis, acel(Tdap) 08/30/11 Given Medications baclofen 20 mg oral tablet 20 mg, 1, tablet, By Mouth, 2 times a day, for muscle pain, # 60 tablet, Refills 0, Tot. Refills 0,Maintenance, 12/20/19 15:30:00 EDT, Route to Pharmacy Electronically, [place], [place] - [phone], 165.1, cm, 12/20/19 15:04:00 EDT,... Start Date: 12/20/19 Status: Ordered divalproex sodium 250 mg oral enteric coated tablet 3 tablet, By Mouth, 2 times a day, For seizures., # 180 tablet, 6 Refills, Maintenance, 12/20/19 15:28:00 EDT, [place], [place] - [phone], 165.1, cm, 12/20/19 15:04:00 EDT, Height, 68.1, kg, 07/25/19 20:48:00 EDT, Dry Weight Start Date: 12/20/19 Status: Ordered Methadone = 22 mg, By Mouth, 0 Refills, Maintenance, 07/25/19 11:04:00 EDT, Partial fill upon patient request Start Date: 07/25/19 Status: Ordered nabumetone 750 mg oral tablet 1 tablet = 750 mg, By Mouth, 2 times a day, for back pain with food, # 60 tablet, 2 Refills, Maintenance, 12/20/19 15:30:00 EDT, Tablet, [facility] [place], [place] - [phone], 165.1, cm, 12/20/19 15:04:00 EDT, Height, 68.1, kg, 07/25/19 20:4... Start Date: 12/20/19 Status: Ordered Nutritional Supplements See Instructions, # 60 each, Refills 3, Tot. Refills 3, Maintenance, Drink 2 times per day, 12/04/19 17:27:00 EDT, Supply Start Date: 12/04/19 Status: Ordered Problem List Condition Effective Dates Status Health Status Inform ant Cigarette smoker(Confirmed) Active History of substance abuse(Confirmed) Active Hyperlipidemia(Confirmed) Active Seizure(Confirmed) Active Social History Social History Type Response Smoking Status Current every day roc oker; Type: Cigarettes entered on: 02/06/15 Sex
--- OUTSIDE RECORDS SUMMARY | 2022-08-18 12:47 | XMS_ITS | Continuity of Care Document ---
Author Name Unknown Organization [facility] Address [address] [place] [address]- Care Team Providers Care Manufacturer Agent Name Role Phone Passer Ning FRENCH Primary Care Physician Encounter [facility] [place] Date(s): 05/26/22 - 06/25/22 [facility] [address] [place] [address]- Allergies, Adverse Reactions, Alerts No Known Allergies Immunizations Given and Recorded Vaccine Date Status Refusal Reason SARS-CoV-2 (COVID-19) Ad26 vaccine 09/09/20 Record ed tetanus/diphtheria/pertussis, acel(Tdap) 02/10/20 Given tetanus/diphtheria/pertussis, acel(Tdap) 06/07/17 Given tetanus/diphtheria/pertussis, acel(Tdap) 09/08/12 Recorded tetanus/diphtheria/pertussis, acel(Tdap) 08/30/11 Given influenza virus vaccine, inactivated 01/25/18 Give n influenza virus vaccine, inactivated 02/18/17 Give n Medications clotrimazole 1% topical cream 1 application, Topically, [...] Refills, Maintenance, 03/27/22 12:05:00 EST, Tablet, [id number], Partial fill upon patient reques... Start [...] Cream, [id number], Partial fill upon patient request... Start Date: 03/27/22 Status: Ordered nabumetone 750 mg oral tablet 1 tablet = 750 mg, By Mouth, 2 times a day, for leg pain with food, # 60 tablet, 2 Refills, Maintenance, 05/14/22 8:55:00 EST, Tablet, [id number], Partial fill upon patient request if the prescription is for a schedule II opioid drug., 165, c... Start Date: 05/14/22 Status: Ordered Problem List Condition Confirmation Course Effective Dates Status H ealth Status Informant Cigarette smoker Confirmed Active History of hepatitis C Confirmed Active History of substance abuse Confirmed Active Hyperlipidemia Confirmed Active *[id number] sylvia Senior Confirmed Active Seizure Confirmed Active Severe obesity (BMI 35.0-39.9) with comorbidity Confirmed Active Social History Social History Type Response Smoking Status 10 or more cigarette s (1/2 pack or more)/day in last 30 days entered on: 07/30/21 Sex Patient Care team information Care Team Personnel Name: Wandy Bailey RN Position: [facility] RN Member Role: Primary Care Nurse Name: Alvarez Sol RN Position: [facility] RN Member Role: Primary Care Nurse Name: Natalia Hanks RN Position: [facility] RN Member Role: Primary Care Nurse Name: Paula Nichols RN Position: [facility] RN Member Role: Primary Care Nurse Name: Ning Faye Position: [facility] PCO Associate Professional Member Role: PCP Address: Address: [address] [place] [id number]- Name: Ilana Houston RN, Maria D Position: [facility] RN Member Role: Primary Care Nurse Care Team Related Persons Name: AMERICA CHAPMANIE Address: home [address] [place] [id number] Name: SENA GARZA Address: [address] [place] [address] Name: WINNIE GARZA Address: [place] [address] Name: LAUREL HERRON Name: SENA CORONA Address: [address] [address]
--- OUTSIDE RECORDS SUMMARY | 2022-08-18 12:47 | XMS_ITS | Continuity of Care Document ---
Author Name Unknown Organization [facility] Address [address] [place] [address]- Care Team Providers Care Director Long Term Care Name Role Phone Passer Ning FRENCH Primary Care Physician Encounter [facility] [place] Date(s): 08/16/19 - 09/15/19 [facility] [place] [address] [place] [address]- [facility] Attending Physician: Admtr, [id number] Allergies, Adverse Reactions, Alerts Substance Reaction Severity [...] day, # 180 tablet, 2 Refills, Maintenance, 11/24/18 13:52:39EDT, Tablet Start Date: 11/24/18 Status: Ordered Methadone = 22 mg, By Mouth, 0 Refills, Maintenance, 07/25/19 11:04:00 EDT, Partial fill upon patient request Start Date: 07/25/19 Status: Ordered Problem List Condition Effective Dates Status Health Status Inform ant Hyperlipidemia(Confirmed) Active Social History Social History Type Response Smoking Status Current every day sm oker; Type: Cigarettes entered on: 02/06/15 Sex
[2022-08-18 13:20] LABS: Alanine Aminotransferase 45 U/L (0-40); Albumin Level 3.7 g/dL (3.5-5.0); Alkaline Phosphatase 165 U/L (39-117); Anion Gap 13 (12-20); Aspartate Amino Transferase 51 U/L (5-37); Bilirubin Direct < 0.2 mg/dL (0.0-0.5); Bilirubin Total 0.2 mg/dL (0.0-1.0); Blood Urea Nitrogen 10 mg/dL (9-16); Calcium 9.2 mg/dL (8.4-10.2); Carbon Dioxide 29 mmol/L (22-29); Chloride 106 mmol/L (96-108); Estimated Glomerular Filt Rate > 60; Glucose Random 87 mg/dL (60-115); Magnesium 2.3 mg/dL (1.6-2.6); Potassium 4.7 mmol/L (3.3-5.1); Sodium 143 mmol/L (135-145); Total Protein 7.1 g/dL (6.5-8.0)
== END 2022-08-18 14:52 | disposition home or self-care (01) ==
PROVIDERS: Physician Assistant; Emergency Provider Emergency Medicine; PCP Physician Assistant Medical
DX: R60.0 Localized edema (principal); L03.116 Cellulitis of left lower limb; Z79.899 Other long term (current) drug therapy
CPT/HCPCS: 36415; 80048; 80076; 83735; 85025; 93971; 99283; 99284